=== PATIENT | female | born 1985 | race Caucasian/White ===

== ENCOUNTER 2020-04-25 15:39 | Outpatient (REF) | payer OTHER, SELFPAY | END 2020-04-25 15:40 | disposition home or self-care (01) | LOC: HO.LAB 15:39 | PROVIDERS: Visit Provider Internal Medicine | DX: Z13.89 Encounter for screening for other disorder (principal) ==

== ENCOUNTER 2020-04-29 14:31 | Outpatient (REF) | payer OTHER, SELFPAY ==
[2020-04-29 14:52] LABS: COVID-19 Test Negative (Negative)
== END 2020-04-29 14:32 | disposition home or self-care (01) ==
LOC: HO.LAB 14:31
PROVIDERS: PCP Internal Medicine; Visit Provider Internal Medicine
DX: Z20.828 Contact with and (suspected) exposure to other viral communicable diseases (principal)
CPT/HCPCS: 87635

== ENCOUNTER 2020-05-02 14:38 | Outpatient (REF) | payer OTHER, SELFPAY ==
[2020-05-02 15:07] LABS: COVID-19 Test Negative (Negative)
== END 2020-05-02 14:39 | disposition home or self-care (01) ==
LOC: HO.LAB 14:38
PROVIDERS: Visit Provider Internal Medicine
DX: Z20.828 Contact with and (suspected) exposure to other viral communicable diseases (principal)
CPT/HCPCS: 87635

== ENCOUNTER 2020-05-02 15:00 | Outpatient (RCR) | payer OTHER, SELFPAY ==
[2020-04-25 16:26] LABS: COVID-19 Test Negative (Negative)
== END 2020-07-23 13:47 | disposition other institution (70) ==
LOC: HO.PT 15:00
PROVIDERS: PCP Internal Medicine; Visit Provider Orthopaedic Surgery
DX: M24.661 Ankylosis, right knee (principal); M24.662 Ankylosis, left knee; Z98.890 Other specified postprocedural states
CPT/HCPCS: 87635; 97110; 97530

== ENCOUNTER 2020-05-06 17:03 | Outpatient (REF) | payer OTHER, SELFPAY ==
[2020-05-06 17:28] LABS: COVID-19 Test Negative (Negative)
== END 2020-05-06 17:04 | disposition home or self-care (01) ==
LOC: HO.LAB 17:03
PROVIDERS: Visit Provider Internal Medicine
DX: Z20.828 Contact with and (suspected) exposure to other viral communicable diseases (principal)
CPT/HCPCS: 87635

== ENCOUNTER 2020-05-13 13:05 | Outpatient (REF) | payer OTHER, SELFPAY ==
[2020-05-13 13:26] LABS: COVID-19 Test Negative (Negative)
== END 2020-05-13 13:06 | disposition home or self-care (01) ==
LOC: HO.LAB 13:05
PROVIDERS: Visit Provider Internal Medicine
DX: Z20.828 Contact with and (suspected) exposure to other viral communicable diseases (principal)
CPT/HCPCS: 87635

== ENCOUNTER 2020-05-24 10:30 | Outpatient (REF) | payer OTHER, SELFPAY ==
[2020-05-24 11:07] LABS: COVID-19 Test Negative (Negative)
== END 2020-05-24 10:31 | disposition home or self-care (01) ==
LOC: HO.EMPCOV 10:30
PROVIDERS: Visit Provider Internal Medicine
DX: Z20.828 Contact with and (suspected) exposure to other viral communicable diseases (principal)
CPT/HCPCS: 87635; C9803

== ENCOUNTER 2020-07-03 17:15 | Outpatient (REF) | payer OTHER, SELFPAY ==
[2020-07-03 17:55] LABS: COVID-19 Test Negative (Negative)
== END 2020-07-03 17:16 | disposition home or self-care (01) ==
LOC: HO.EMPCOV 17:15
PROVIDERS: Visit Provider Internal Medicine
DX: Z20.828 Contact with and (suspected) exposure to other viral communicable diseases (principal)
CPT/HCPCS: 87635; C9803

== ENCOUNTER 2020-08-05 12:01 | Emergency (ER) | payer OTHER, SELFPAY ==
--- NOTE | 2020-08-05 12:22 | ED.EXTPRO ---
HPI - Extremity Problem General Stated complaint: needle stick Time Seen by Provider: 08/05/20 12:10 Source: patient Mode of arrival: ambulatory History of Present Illness HPI Narrative: 34-year-old female with no significant past medical history presenting to the ED s/p accidental needlestick while trying to draw blood from patient. She reports stuck patient, and then accidentally punctured her left pinky finger. Patient reports her vaccination status is unknown, but was recently . MD Complaint: extremity pain Related Data Home Medications Medication Instructions Recorded Confirmed No Known Home Meds 07/29/20 07/29/20 Allergies Allergy/AdvReac Type Severity Reaction Status Date / Time acetaminophen [Percocet] Allergy Unknown vomitting, Verified 08/29/19 00:00 itch, GI upset oxycodone [Percocet] Allergy Unknown vomitting, Verified 08/29/19 00:00 itch, GI upset From PERCOCET AdvReac Unknown UPSET Uncoded 03/28/20 16:53 STOMACH AND SHAKING Review of Systems Review of Systems: Constitutional: No Weight loss, No Fever, No Chills Musculoskeletal: No joint pain, No Myalgias, No Joint Swelling Skin: No Skin Lesions, +puncture wound Yes all other systems are reviewed and are negative PMFSH Past Medical History Attestation statement: The following information was validated with the patient. Social History Social History Advance Directives: No Advance Directives Information Provided: Yes Physical Exam Const: General: cooperative, healthy appearing, comfortable, no acute distress, well developed, alert and awake Orientation/consciousness: patient oriented x3 Limitations: no limitations HENMT: Head: Yes normal to inspection Ears: hearing grossly normal bilaterally General nose exam: Normal external nose present Face and sinus: Yes normal facial exam Eyes: General: appearance normal, both eyes and all related structures EOM: EOMs intact bilaterally Neck: Neck: Yes normal visual inspection Resp: Effort & Inspection: normal respiratory effort Cardio: Rate: regular rate Skin: Other: Small puncture wound noted to left pinky finger. No cellulitis, streaking, fluctuance, induration or active bleeding Rashes: no rashes Neuro: General: patient oriented x3 Gait exam (Neuro): Normal gait present Extrem: General: Yes normal to inspection MDM - Extremity (Nontraumatic) MDM Narrative Medical decision making narrative: 34-year-old female with no significant past medical history presenting to the ED s/p accidental needlestick while trying to draw blood from patient. Plan: HIV/hepatitis antibodies, update tetanus. Patient would like to refrain from receiving PEP at this time until antibodies result from other patient Discharge Plan Discharge Clinical Impression: Needle stick injury Patient Disposition: Home, Self-Care Instructions: Needle Stick Injuries (ED) Prescriptions: No Action No Known Home Meds RF: 0 Referrals: Josep Silva MD [Primary Care Provider] - 2 days
[2020-08-05 13:03] LABS: HBc Num1 0.05 S/CO (0.00-0.79); HBsAGNum1 0.22 S/CO (0.00-0.99); HIV AB/AG Nonreactive (Nonreactive); HIV Num 1 0.08 S/CO (0.00-0.99); Hepatitis B Core Antibody Nonreactive (Nonreactive); Hepatitis B Surface Antigen Negative (Negative); ~Hepatitis C Antibody Nonreactive (Nonreactive)
== END 2020-08-05 15:00 | disposition home or self-care (01) ==
PROVIDERS: Physician Assistant; Emergency Provider Internal Medicine; PCP Internal Medicine
DX: Z77.21 Contact with and (suspected) exposure to potentially hazardous body fluids (principal); Z04.2 Encounter for examination and observation following work accident
CPT/HCPCS: 36415; 86704; 86803; 87340; 87389; 99283

== ENCOUNTER 2020-08-05 16:05 | Outpatient (REF) | payer OTHER, SELFPAY ==
[2020-08-05 16:28] LABS: Hematocrit 38.8 % (37-47); Mean Corpuscular HGB Conc 33.5 g/dl (31.0-35.0); Mean Corpuscular Hemoglobin 30.7 pg (27.0-33.0); Mean Corpuscular Volume 91.7 fL (80-98); Mean Platelet Volume 10.9 fL (9.4-12.3); Platelet Count 306 X10*3/uL (160-400); Red Blood Count 4.23 X10*6/uL (4.20-5.50); White Blood Count 5.3 X10*3/uL (4.8-10.8)
[2020-08-05 16:58] LABS: HCG Quantitative < 2 mIU/mL
[2020-08-05 17:13] LABS: TSH reflex Free T4 (Prenatal) 0.77 mIU/mL (0.32-4.0)
[2020-08-06 14:17] LABS: C. trachomatis RNA TMA NOT DETECTED (NOT DETECTED); N. gonorrhoeae RNA TMA NOT DETECTED (NOT DETECTED)
== END 2020-08-05 16:06 | disposition home or self-care (01) ==
LOC: HO.LAB 16:05
PROVIDERS: Visit Provider Obstetrics & Gynecology
DX: N92.1 Excessive and frequent menstruation with irregular cycle (principal)
CPT/HCPCS: 36415; 84702; 85027; 87491; 87591

== ENCOUNTER 2020-08-06 15:55 | Outpatient (REF) | payer OTHER, SELFPAY ==
--- NOTE | 2020-08-06 15:59 | US_ITS ---
EXAMINATION: PELVIC ULTRASOUND CLINICAL INFORMATION: Excessive and frequent menstruation COMPARISON: None TECHNIQUE: Transabdominal and transvaginal pelvic ultrasound was performed. Transvaginal exam was performed for better visualization of the uterus and ovaries. FINDINGS: The uterus is anteverted and measures 7.5 x 3.5 x 4.9 cm in dimension. There is a 1.1 x 0.9 x 1.7 cm hypoechoic lesion in the fundus of the uterus suggestive of a small fibroid. No other focal uterine lesion is seen. Endometrial thickness is normal estimated at 0.6 cm. The ovaries are normal-appearing. The right ovary measures 3.1 x 2 x 1.6 cm and the left ovary measures 3.2 x 1.4 x 1.7 cm. There is no fluid in the pelvis. US/US transvaginal IMPRESSION: Small fundal uterine fibroid otherwise unremarkable exam.
--- NOTE | 2020-08-06 15:59 | US_ITS ---
EXAMINATION: PELVIC ULTRASOUND CLINICAL INFORMATION: Excessive and frequent menstruation COMPARISON: None TECHNIQUE: Transabdominal and transvaginal pelvic ultrasound was performed. Transvaginal exam was performed for better visualization of the uterus and ovaries. FINDINGS: The uterus is anteverted and measures 7.5 x 3.5 x 4.9 cm in dimension. There is a 1.1 x 0.9 x 1.7 cm hypoechoic lesion in the fundus of the uterus suggestive of a small fibroid. No other focal uterine lesion is seen. Endometrial thickness is normal estimated at 0.6 cm. The ovaries are normal-appearing. The right ovary measures 3.1 x 2 x 1.6 cm and the left ovary measures 3.2 x 1.4 x 1.7 cm. There is no fluid in the pelvis. US/US pelvic complete IMPRESSION: Small fundal uterine fibroid otherwise unremarkable exam.
== END 2020-08-06 15:56 | disposition home or self-care (01) ==
LOC: HO.US 15:55
PROVIDERS: Visit Provider Obstetrics & Gynecology
DX: N92.1 Excessive and frequent menstruation with irregular cycle (principal)
CPT/HCPCS: 76830; 76856

== ENCOUNTER → 2020-08-09 | Outpatient (BNVA) | payer OTHER, SELFPAY | DX: Z20.822 Contact with and (suspected) exposure to COVID-19 (principal) | CPT/HCPCS: 99202 ==

== ENCOUNTER 2020-08-10 14:43 | Outpatient (REF) | payer OTHER, SELFPAY ==
[2020-08-10 15:32] LABS: COVID-19 Test Negative (Negative); IDNOW Serial# 9DD0AD1C
== END 2020-08-10 14:44 | disposition home or self-care (01) ==
LOC: HO.LAB 14:43
PROVIDERS: Visit Provider Internal Medicine
DX: Z20.822 Contact with and (suspected) exposure to COVID-19 (principal)
CPT/HCPCS: 36415; 87635

== ENCOUNTER → 2020-08-15 15:01 | Outpatient (BNVA) | payer OTHER, SELFPAY | PROVIDERS: Visit Provider Obstetrics & Gynecology ==

== ENCOUNTER 2020-10-02 15:00 | Outpatient (RCR) | payer OTHER, SELFPAY | END 2020-10-03 13:16 | disposition home or self-care (01) | LOC: HO.PT 15:00 | PROVIDERS: Visit Provider Orthopaedic Surgery | DX: Z47.89 Encounter for other orthopedic aftercare (principal) | CPT/HCPCS: 97110; 97112; 97140; 97161; 97530 ==

== ENCOUNTER 2020-10-09 14:37 | Emergency (ER) | payer OTHER, SELFPAY ==
--- NOTE | ~2020-10-09 | US_ITS ---
EXAMINATION: US OBSTETRICAL ULTRASOUND CLINICAL INFORMATION: Right-sided pain COMPARISON: Ultrasound pelvis 08/06/2020. Technique: Transabdominal pelvic ultrasound was performed. The patient refused endovaginal exam. FINDINGS: An anteverted uterus is present measuring 8.3 x 5.1 x 5.5 cm. A normal endometrium is seen measuring 0.8 cm. A gestational sac is not present. The right ovary measures 3.3 x 2.4 x 2.3 cm and contains a 1.5 x 1.1 x 0.9 cm cyst. Left ovary measures 3.8 x 2.2 x 3.0 cm and contains a 2.2 x 1.8 x 2.2 cm cyst. Trace fluid is present in the cul-de-sac. US/US OB <= 14 weeks fetus IMPRESSION: Normal pelvic ultrasound. Simple cysts are noted in the ovary. There is no evidence of a at this time.
[2020-10-09 14:50] VITALS: BP 131/81; PULSE 77; RESP 18; TEMP 36.9; O2SAT 99; BMI 24.7
[2020-10-09 15:05] LABS: Glucose Urine UA NEG (NEG); Leukocyte Esterase Urine NEG (NEG); Nitrite Urine NEG (NEG); Specific Gravity - Urine >= 1.030 (1.005-1.025); Urine Blood NEG (NEG); Urine Ketones NEG (NEG); Urine Protein NEG (NEG-TRACE)
[2020-10-09 15:08] LABS: UPreg QC Valid YES; Urine Pregnancy POSITIVE (NEGATIVE)
[2020-10-09 15:09] LABS: Appearance Urine CLEAR; Color Urine YELLOW
[2020-10-09 15:12] LABS: MANUAL DIFF FLAG NO
[2020-10-09 15:13] LABS: Basophils Percent Auto 0.7 % (0-2); Eosinophils Absolute Auto 0.2 X10*3/uL (0.0-0.4); Eosinophils Percent Auto 3.3 % (0-4); Hematocrit 41.5 % (37-47); Hemoglobin 13.1 g/dl (12.0-16.0); Lymphocytes Absolute Auto 2.1 X10*3/uL (1.2-4.9); Lymphocytes Percent Auto 45.4 % (20-40); Mean Corpuscular HGB Conc 31.6 g/dl (31.0-35.0); Mean Corpuscular Hemoglobin 29.9 pg (27.0-33.0); Mean Corpuscular Volume 94.7 fL (80-98); Mean Platelet Volume 10.5 fL (9.4-12.3); Monocytes Absolute Auto 0.4 X10*3/uL (0.1-1.2); Monocytes Percent Auto 7.6 % (2-11); Platelet Count 318 X10*3/uL (160-400); Red Blood Count 4.38 X10*6/uL (4.20-5.50); Red Cell Distribution Width 12.1 % (11.0-16.0); White Blood Count 4.6 X10*3/uL (4.8-10.8)
[2020-10-09 15:34] LABS: Alanine Aminotransferase 12 U/L (0-31); Albumin Level 4.4 g/dL (3.5-5.0); Alkaline Phosphatase 51 U/L (39-117); Anion Gap 13 (12-20); Aspartate Amino Transferase 16 U/L (5-31); Bilirubin Direct 0.2 mg/dL (0.0-0.5); Bilirubin Total 0.4 mg/dL (0.0-1.0); Blood Urea Nitrogen 17 mg/dL (9-16); Carbon Dioxide 28 mmol/L (22-29); Chloride 102 mmol/L (96-108); Estimated Glomerular Filt Rate > 60; Glucose Random 91 mg/dL (60-115); Potassium 4.1 mmol/L (3.3-5.1); Sodium 139 mmol/L (135-145); Total Protein 7.3 g/dL (6.5-8.0)
[2020-10-09 15:46] LABS: HCG Quantitative 362 mIU/mL
--- NOTE | 2020-10-09 15:53 | ED_ITS ---
HPI - General Chief complaint: OB Stated complaint: ABD PAIN Time Seen by Provider: 10/09/20 14:53 Source: patient Mode of arrival: ambulatory Limitations: no limitations History of Present Illness HPI Narrative: 35 y/o female with history of miscarriage in June presents to the ER with positive test at home and some right sided pelvic pain for the last few days. She reports the pain is 4/10 and worse with movement. She states after her miscarriage in June she had 2 menstrual cycl es in July and then a normal cycles in August and September. Her LMP was 09/28 - 10/03 and was normal in duration and flow. No excessive bleeding or cramping. She has been testing her ovulation and noted to have peak LH surge on 10/06 so had intercourse a few times in the next 2 days. She took a home test yesterday and it was positive, only 2-3 days after having intercourse. She some ongoing mild pain in the right lower pelvis but no further bleeding since 10/03. She called her OB who recommended she come into the ER for evaluation. No vaginal discharge, nausea or vomiting. MD Complaint: abdominal pain Onset (ago): day(s) Pain Consistency: constant Location: pelvis Severity: mild Severity scale (1-10): 3 Quality: Aching Relieving factors: rest Exacerbating factors: none Associated symptoms: abdominal pain Vaginal discharge: none Vaginal bleeding: none Date of Last Menstrual Period: 09/28/20 Patient : Yes care: followed by OB Related Data Home Medications Medication Instructions Recorded Confirmed [id number] 3-fat com #1 27 cap PO 08/05/20 08/15/20 mg-1 mg-300 mg capsule multivitamin 1 tab PO DAILY 08/05/20 08/15/20 Allergies Allergy/AdvReac Type Severity Reaction Status Date / Time acetaminophen [Percocet] Allergy Unknown vomitting, Verified 10/09/20 14:49 itch, GI upset oxycodone [Percocet] Allergy Unknown vomitting, Verified 10/09/20 14:49 itch, GI upset From PERCOCET AdvReac Unknown UPSET Uncoded 10/09/20 14:49 STOMACH AND SHAKING Review of Systems Review of Systems: Constitutional: No Fever, No Chills Cardiovascular: No Chest Pain, No SOB, No Orthopnea, No Edema Respiratory: No Cough, No Sputum, No Wheezing, No dyspnea Gastrointestinal: No Nausea, No Vomiting, No Diarrhea, + abdominal Pain Genitourinary: No Dysuria, No Urinary Frequency, No Hematuria, No vaginal bleeding Musculoskeletal: No joint pain, No Myalgias Skin: No Skin Lesions, No rash Neuro: No Weakness, No Numbness, No Dizziness, No Headache Psych: + Anxiety/Panic, No Depression Heme/Lymph: No Bruising, No Lymphadenopathy Endocrine: No Polyuria, No Polydipsia PMF Past Medical History Surgical History History of History of knee surgery Date of Last Menstrual Period: 09/28/20 Social History Social History Alcohol intake: never Smoking Status: Never smoker Advance Directives: No Advance Directives Information Provided: Yes Sexual orientation: Straight/Heterosexual Gender identity: female Physical Exam Vital Signs: Vital Signs: Last Vital Signs Temp 98.4 F 10/09/20 14:50 Pulse 77 10/09/20 14:50 Resp 18 10/09/20 14:50 BP 131/81 10/09/20 14:50 Pulse Ox 99 10/09/20 14:50 Body Mass Index 24.7 Appearance: Alert. Oriented X3. No acute distress. Eyes: Pupils equal, round and reactive to light. ENT: Pharynx normal. Neck: Normal inspection. Neck supple. CVS: Normal heart rate and rhythm. Pulses normal. Respiratory: No respiratory distress. Breath sounds normal. Abdomen: Soft and nontender. +BS x4. Pelvic exam deferred. Skin: Skin warm and dry. Normal skin color. Normal skin turgor. No rashes. Extremities: No lower extremity edema. Neuro: Oriented X 3. No motor deficit. No sensory deficit. Course Course Course Narrative: 35 y/o who is currently with LMP 09/28 presents with mild right sided pelvic discomfort. No vaginal bleeding or cramping. Pain worse with movement. Unclear if bleeding was menses vs other etiology. Will check quantitative HCG, transvaginal U/S to assess for possible ectopic . Reevaluation(s) Reevaluation #1: HCG 362 consistent with 3-4 weeks gestation. Ultrasound pending. Patient is comfortable. Pain is mild. Plan for repeat HCG tomorrow and follow up with Dr. Mullen. Given strict instructions to return if worsening pain. Stable for discharge. MDM - OB/Uterine Contractions Lab Data Result diagrams: 10/09/20 15:07 10/09/20 15:07 Labs: Lab Results 10/09/20 10/09/20 10/09/20 Range/Units 14:53 14:53 15:07 WBC 4.6 L (4.8-10.8) X10*3/uL RBC 4.38 (4.20-5.50) X10*6/uL Hgb 13.1 (12.0-16.0) g/dl Hct 41.5 (37-47) % MCV 94.7 (80-98) fL MCH 29.9 (27.0-33.0) pg MCHC 31.6 (31.0-35.0) g/dl RDW 12.1 (11.0-16.0) % Plt Count 318 (160-400) X10*3/uL MPV 10.5 (9.4-12.3) fL Immature Gran % (Auto) 0.0 (0.0-0.4) % Neut % (Auto) 43.0 L (45-73) % Lymph % (Auto) 45.4 H (20-40) % [place] % (Auto) 7.6 (2-11) % Eos % (Auto) 3.3 (0-4) % Baso % (Auto) 0.7 (0-2) % Lymph # (Auto) 2.1 (1.2-4.9) X10*3/uL [place] # (Auto) 0.4 (0.1-1.2) X10*3/uL Eos # (Auto) 0.2 (0.0-0.4) X10*3/uL Baso # (Auto) 0.0 (0.0-0.2) X10*3/uL Abs Immat Gran (auto) 0.00 (0.00-0.03) X10*3/uL Absolute Neuts (auto) 2.0 (2.0-8.3) X10*3/uL Absolute Nucleated RBC 0.000 (0.0-0.012) X10*3/uL Nucleated RBC % (auto) 0.0 (0.0-0.2) /100WBC Sodium (135-145) mmol/L Potassium (3.3-5.1) mmol/L Chloride (96-108) mmol/L Carbon Dioxide (22-29) mmol/L Anion Gap (12-20) BUN (9-16) mg/dL Creatinine (0.5-1.4) mg/dL Estim Creat Clear Calc Estimated GFR Random Glucose (60-115) mg/dL Calcium (8.4-10.2) mg/dL Total Bilirubin (0.0-1.0) mg/dL Direct Bilirubin (0.0-0.5) mg/dL AST (5-31) U/L ALT (0-31) U/L Alkaline Phosphatase (39-117) U/L Total Protein (6.5-8.0) g/dL Albumin (3.5-5.0) g/dL Beta HCG, Quant mIU/mL Urine Color YELLOW Urine Appearance CLEAR Urine pH 6.0 (5.0-8.0) Ur Specific [place] >= 1.030 H (1.005-1.025) Urine Protein NEG (NEG-TRACE) MG/DL Urine Glucose (UA) NEG (NEG) MG/DL Urine Ketones NEG (NEG) MG/DL Urine Blood NEG (NEG) Urine Nitrite NEG (NEG) Ur Leukocyte Esterase NEG (NEG) Urine Test POSITIVE H (NEGATIVE) Blood Type 10/09/20 10/09/20 Range/Units 15:07 15:07 WBC (4.8-10.8) X10*3/uL RBC (4.20-5.50) X10*6/uL Hgb (12.0-16.0) g/dl Hct (37-47) % MCV (80-98) fL MCH (27.0-33.0) pg MCHC (31.0-35.0) g/dl RDW (11.0-16.0) % Plt Count (160-400) X10*3/uL MPV (9.4-12.3) fL Immature Gran % (Auto) (0.0-0.4) % Neut % (Auto) (45-73) % Lymph % (Auto) (20-40) % [place] % (Auto) (2-11) % Eos % (Auto) (0-4) % Baso % (Auto) (0-2) % Lymph # (Auto) (1.2-4.9) X10*3/uL [place] # (Auto) (0.1-1.2) X10*3/uL Eos # (Auto) (0.0-0.4) X10*3/uL Baso # (Auto) (0.0-0.2) X10*3/uL Abs Immat Gran (auto) (0.00-0.03) X10*3/uL Absolute Neuts (auto) (2.0-8.3) X10*3/uL Absolute Nucleated RBC (0.0-0.012) X10*3/uL Nucleated RBC % (auto) (0.0-0.2) /100WBC Sodium 139 (135-145) mmol/L Potassium 4.1 (3.3-5.1) mmol/L Chloride 102 (96-108) mmol/L Carbon Dioxide 28 (22-29) mmol/L Anion Gap 13 (12-20) BUN 17 H (9-16) mg/dL Creatinine 0.75 (0.5-1.4) mg/dL Estim Creat Clear Calc 95.0 Estimated GFR > 60 Random Glucose 91 (60-115) mg/dL Calcium 9.0 (8.4-10.2) mg/dL Total Bilirubin 0.4 (0.0-1.0) mg/dL Direct Bilirubin 0.2 (0.0-0.5) mg/dL AST 16 (5-31) U/L ALT 12 (0-31) U/L Alkaline Phosphatase 51 (39-117) U/L Total Protein 7.3 (6.5-8.0) g/dL Albumin 4.4 (3.5-5.0) g/dL Beta HCG, Quant 362 mIU/mL Urine Color Urine Appearance Urine pH (5.0-8.0) Ur Specific [place] (1.005-1.025) Urine Protein (NEG-TRACE) MG/DL Urine Glucose (UA) (NEG) MG/DL Urine Ketones (NEG) MG/DL Urine Blood (NEG) Urine Nitrite (NEG) Ur Leukocyte Esterase (NEG) Urine Test (NEGATIVE) Blood Type O Positive Discharge Plan Discharge Clinical Impression: Positive blood test Patient Disposition: Home, Self-Care Instructions: (ED) Additional Instructions: Your hormone was 362. Your pelvic ultrasound was normal but it did not show any evidence of yet - likely because you are so early along. There is still a risk of ectopic given your pain. Recommend getting repeat HCG level tomorrow. Call Dr. Mullen's office tomorrow afternoon. If you develop ANY increase in pain or any vaginal bleeding come back to the ER right away for further evaluation. Prescriptions: No Action multivitamin Tablet 1 tab PO DAILY RF: 0 [id number] 3-fat com #1 27-1-300 mg capsule PO RF: 0 Referrals: Sergei Mullen MD [Physician] - 2 days
== END 2020-10-09 17:23 | disposition home or self-care (01) ==
PROVIDERS: Emergency Provider Emergency Medicine; PCP Internal Medicine
DX: R10.9 Unspecified abdominal pain (principal); Z79.899 Other long term (current) drug therapy
CPT/HCPCS: 36415; 76801; 80048; 80076; 81003; 81025; 84702; 85025; 86900; 86901; 99283

== ENCOUNTER 2020-10-10 06:43 | Outpatient (REF) | payer OTHER, SELFPAY ==
[2020-10-10 10:45] LABS: HCG Quantitative 454 mIU/mL
== END 2020-10-10 06:44 | disposition home or self-care (01) ==
LOC: HO.LAB 06:43
PROVIDERS: PCP Internal Medicine; Visit Provider Physician Assistant
DX: O26.899 Other specified pregnancy related conditions, unspecified trimester (principal); R10.9 Unspecified abdominal pain
CPT/HCPCS: 36415; 84702

== ENCOUNTER 2020-10-11 08:08 | Outpatient (REF) | payer OTHER, SELFPAY ==
[2020-10-11 08:56] LABS: HCG Quantitative 403 mIU/mL
[2020-10-12 05:28] LABS: CT PCR NOT DETECTED (Not Detect.); NG PCR NOT DETECTED (Not Detect.)
== END 2020-10-11 08:09 | disposition home or self-care (01) ==
LOC: HO.LAB 08:08
PROVIDERS: Absent Provider Obstetrics & Gynecology; PCP Internal Medicine; Visit Provider Physician Assistant
DX: O26.899 Other specified pregnancy related conditions, unspecified trimester (principal); R10.31 Right lower quadrant pain; O34.219 Maternal care for unspecified type scar from previous cesarean delivery; Z3A.00 Weeks of gestation of pregnancy not specified
CPT/HCPCS: 36415; 84702; 87491; 87591

== ENCOUNTER 2020-10-13 13:05 | Outpatient (REF) | payer OTHER, SELFPAY ==
[2020-10-13 13:44] LABS: HCG Quantitative 306 mIU/mL
== END 2020-10-13 13:06 | disposition home or self-care (01) ==
LOC: HO.LAB 13:05
PROVIDERS: Obstetrics & Gynecology; Visit Provider Nurse Practitioner Primary Care
DX: Z34.90 Encounter for supervision of normal pregnancy, unspecified, unspecified trimester (principal); Z3A.00 Weeks of gestation of pregnancy not specified
CPT/HCPCS: 36415; 84702

== ENCOUNTER 2020-10-14 13:17 | Outpatient (REF) | payer OTHER, SELFPAY ==
--- NOTE | ~2020-10-14 | US_ITS ---
EXAMINATION: US OBSTETRICAL ULTRASOUND CLINICAL INFORMATION: Abnormal quantitative beta hCG levels. Evaluate for ectopic versus early spontaneous . COMPARISON: None. LMP: 09/28/2020. Gestational age by maternal dates is 2 weeks 2 days. Estimated date of delivery by maternal dates is 07/05/2021. TECHNIQUE: Transabdominal and transvaginal pelvic ultrasound was performed. Transvaginal exam was performed for better visualization of the ovaries. FINDINGS: The uterus measures 8.4 x 4.9 x 5.8 cm in dimension. There is a small fundal fibroid that measures 1.2 x 0.9 x 1.3 cm. The endometrium does not appear thickened. Endometrial thickness measures 0.9 cm. No intrauterine is seen. The cervix is normal appearing. The right ovary is normal-appearing and measures 2.9 x 2.1 x 2.6 cm. The left ovary measures 3.6 x 2.8 x 3.1 cm. There is a 2.6 x 2.2 x 2.7 cm complex left ovarian cyst with internal echoes. There is a new hypoechoic slightly heterogeneous adnexal mass in between the left ovary in the uterus. This measures 1.8 x 1.5 x 1.9 cm. This demonstrates some peripheral flow. There is a new small amount of complex fluid in the pelvis. Findings are concerning for a left adnexal ectopic . US/US OB transvaginal IMPRESSION: No intrauterine seen. New slightly complex 1.8 x 1.5 x 1.9 cm left adnexal mass in between the uterus and left ovary and small amount of complex fluid in the pelvis. Ultrasound appearance is a concerning for a left adnexal ectopic . Findings were communicated to Shikha WHITFIELD on 10/14/2020 at 1:47 PM by the systems technologist at the completion of the exam.
--- NOTE | ~2020-10-14 | US_ITS ---
EXAMINATION: US OBSTETRICAL ULTRASOUND CLINICAL INFORMATION: Abnormal quantitative beta hCG levels. Evaluate for ectopic versus early spontaneous . COMPARISON: None. LMP: 09/28/2020. Gestational age by maternal dates is 2 weeks 2 days. Estimated date of delivery by maternal dates is 07/05/2021. TECHNIQUE: Transabdominal and transvaginal pelvic ultrasound was performed. Transvaginal exam was performed for better visualization of the ovaries. FINDINGS: The uterus measures 8.4 x 4.9 x 5.8 cm in dimension. There is a small fundal fibroid that measures 1.2 x 0.9 x 1.3 cm. The endometrium does not appear thickened. Endometrial thickness measures 0.9 cm. No intrauterine is seen. The cervix is normal appearing. The right ovary is normal-appearing and measures 2.9 x 2.1 x 2.6 cm. The left ovary measures 3.6 x 2.8 x 3.1 cm. There is a 2.6 x 2.2 x 2.7 cm complex left ovarian cyst with internal echoes. There is a new hypoechoic slightly heterogeneous adnexal mass in between the left ovary in the uterus. This measures 1.8 x 1.5 x 1.9 cm. This demonstrates some peripheral flow. There is a new small amount of complex fluid in the pelvis. Findings are concerning for a left adnexal ectopic . US/US OB <= 14 weeks fetus IMPRESSION: No intrauterine seen. New slightly complex 1.8 x 1.5 x 1.9 cm left adnexal mass in between the uterus and left ovary and small amount of complex fluid in the pelvis. Ultrasound appearance is a concerning for a left adnexal ectopic . Findings were communicated to Shikha WHITFIELD on 10/14/2020 at 1:47 PM by the angio technologist at the completion of the exam.
[2020-10-14 14:29] LABS: Hematocrit 40.1 % (37-47); Mean Corpuscular HGB Conc 32.4 g/dl (31.0-35.0); Mean Corpuscular Hemoglobin 30.4 pg (27.0-33.0); Mean Corpuscular Volume 93.9 fL (80-98); Mean Platelet Volume 10.4 fL (9.4-12.3); Platelet Count 300 X10*3/uL (160-400); Red Blood Count 4.27 X10*6/uL (4.20-5.50); Red Cell Distribution Width 12.2 % (11.0-16.0); White Blood Count 5.5 X10*3/uL (4.8-10.8)
[2020-10-14 14:51] LABS: Alanine Aminotransferase 11 U/L (0-31); Aspartate Amino Transferase 15 U/L (5-31); Estimated Glomerular Filt Rate > 60
[2020-10-14 14:57] LABS: HCG Quantitative 330 mIU/mL
== END 2020-10-14 13:18 | disposition home or self-care (01) ==
LOC: HO.US 13:17
PROVIDERS: PCP Internal Medicine; Visit Provider Obstetrics & Gynecology
DX: O00.90 Unspecified ectopic pregnancy without intrauterine pregnancy (principal); O34.219 Maternal care for unspecified type scar from previous cesarean delivery; Z3A.01 Less than 8 weeks gestation of pregnancy
CPT/HCPCS: 36415; 76801; 76817; 82565; 84450; 84460; 84702; 85027

== ENCOUNTER 2020-10-16 13:57 | Emergency (ER) | payer OTHER, SELFPAY ==
--- NOTE | ~2020-10-16 | US_ITS ---
EXAMINATION: US PELVIS ULTRASOUND CLINICAL INFORMATION: Status post methotrexate for left-sided ectopic . Beta-hCG 439. LMP 09/28/2020 COMPARISON: Pelvic ultrasound 10/14/2020, 10/09/2020 TECHNIQUE: Ultrasound of the pelvis is performed using both transabdominal and transvaginal transducers along with Doppler. Transvaginal imaging is performed due to inadequate visualization transabdominally. FINDINGS: Uterus: The uterus is anteverted and measures approximately 8.0 x 4.8 x 7.5 cm. The endometrial double wall thickness is 0.7 cm. There is no intrauterine gestational sac. No fluid in the uterine cavity. There is lobular contour anterior uterine body which may suggest small fibroid. Small myometrial cyst again noted anterior uterine body just right of midline measuring 0.6 cm. Adnexa: Both ovaries are visualized. There is normal color flow to the adnexa. There is no ovarian torsion. There is small amount of pelvic ascites similar to recent exam 10/14/2020. Right ovary measures 3.2 x 2.4 x 2.6 cm. Incidental follicle within the ovary measuring 1.9 x 1.8 x 1.9 cm. No right adnexal mass. Left ovary measures 4.2 x 2.6 x 2.9 cm cm. An avascular hemorrhagic cyst within the left ovary is again seen measuring 2.7 x 2.3 x 2.6 cm. Prior measurement 2.7 x 2.2 x 2.6 cm. The smaller left adnexal lesion previously described again with mild peripheral color flow is stable to decreased, measuring 1.6 x 1.0 x 1.6 cm. Prior measurements are 1.9 x 1.5 x 1.8 cm. On current images, this appears intraovarian, possibly a corpus luteum. There is no interval left adnexal mass. Preliminary results provided to Dr. Mullen by rfid systems engineer at 1525 hours. US/US OB limited IMPRESSION: 1. Uterus: Double wall endometrial thickness 0.7 cm. No intrauterine gestational sac. 2. Adnexa: Stable left intraovarian hemorrhagic cyst 2.7 cm. The smaller left adnexal lesion with mild peripheral color flow is borderline decreased. Mild pelvic ascites stable. No interval adnexal mass.
--- NOTE | ~2020-10-16 | US_ITS ---
EXAMINATION: US PELVIS ULTRASOUND CLINICAL INFORMATION: Status post methotrexate for left-sided ectopic . Beta-hCG 439. LMP 09/28/2020 COMPARISON: Pelvic ultrasound 10/14/2020, 10/09/2020 TECHNIQUE: Ultrasound of the pelvis is performed using both transabdominal and transvaginal transducers along with Doppler. Transvaginal imaging is performed due to inadequate visualization transabdominally. FINDINGS: Uterus: The uterus is anteverted and measures approximately 8.0 x 4.8 x 7.5 cm. The endometrial double wall thickness is 0.7 cm. There is no intrauterine gestational sac. No fluid in the uterine cavity. There is lobular contour anterior uterine body which may suggest small fibroid. Small myometrial cyst again noted anterior uterine body just right of midline measuring 0.6 cm. Adnexa: Both ovaries are visualized. There is normal color flow to the adnexa. There is no ovarian torsion. There is small amount of pelvic ascites similar to recent exam 10/14/2020. Right ovary measures 3.2 x 2.4 x 2.6 cm. Incidental follicle within the ovary measuring 1.9 x 1.8 x 1.9 cm. No right adnexal mass. Left ovary measures 4.2 x 2.6 x 2.9 cm cm. An avascular hemorrhagic cyst within the left ovary is again seen measuring 2.7 x 2.3 x 2.6 cm. Prior measurement 2.7 x 2.2 x 2.6 cm. The smaller left adnexal lesion previously described again with mild peripheral color flow is stable to decreased, measuring 1.6 x 1.0 x 1.6 cm. Prior measurements are 1.9 x 1.5 x 1.8 cm. On current images, this appears intraovarian, possibly a corpus luteum. There is no interval left adnexal mass. Preliminary results provided to Dr. Mullen by orchid transplanter at 1525 hours. US/US OB transvaginal IMPRESSION: 1. Uterus: Double wall endometrial thickness 0.7 cm. No intrauterine gestational sac. 2. Adnexa: Stable left intraovarian hemorrhagic cyst 2.7 cm. The smaller left adnexal lesion with mild peripheral color flow is borderline decreased. Mild pelvic ascites stable. No interval adnexal mass.
[2020-10-16 14:43] VITALS: PULSE 88; RESP 124; O2SAT 98; BMI 21.4
[2020-10-16 14:44] LABS: MANUAL DIFF FLAG NO
[2020-10-16 14:52] LABS: Basophils Percent Auto 0.2 % (0-2); Eosinophils Absolute Auto 0.1 X10*3/uL (0.0-0.4); Eosinophils Percent Auto 1.8 % (0-4); Hematocrit 37.4 % (37-47); Hemoglobin 12.3 g/dl (12.0-16.0); Imm Gran Abs Auto 0.01 X10*3/uL (0.00-0.03); Imm Gran Pct Auto 0.2 % (0.0-0.4); Lymphocytes Absolute Auto 1.4 X10*3/uL (1.2-4.9); Lymphocytes Percent Auto 28.3 % (20-40); Mean Corpuscular HGB Conc 32.9 g/dl (31.0-35.0); Mean Corpuscular Hemoglobin 30.4 pg (27.0-33.0); Mean Corpuscular Volume 92.6 fL (80-98); Mean Platelet Volume 10.5 fL (9.4-12.3); Monocytes Absolute Auto 0.4 X10*3/uL (0.1-1.2); Monocytes Percent Auto 7.9 % (2-11); Neutrophils Absolute Auto 3.1 X10*3/uL (2.0-8.3); Neutrophils Percent Auto 61.6 % (45-73); Platelet Count 267 X10*3/uL (160-400); Red Blood Count 4.04 X10*6/uL (4.20-5.50); White Blood Count 5.1 X10*3/uL (4.8-10.8)
[2020-10-16 14:54] LABS: INTERNATIONAL NORM RATIO 1.1 (0.9-1.1); Prothrombin Time 12.6 SEC (10.8-13.0)
[2020-10-16 14:56] LABS: Partial Thromboplastin Time 34.8 SEC (24.1-38.0)
--- NOTE | 2020-10-16 15:01 | ED.GENADULT ---
HPI - General Adult General Chief complaint: General Medical Stated complaint: ABD PAIN Time Seen by Provider: 10/16/20 14:14 Source: patient Mode of arrival: ambulatory Limitations: no limitations History of Present Illness HPI narrative: 35 y/o female with with recently diagnosed right sided ectopic s/p IM methotrexate on 10/[address] Mullen who presents to the ED with rectal pressure and discomfort. She is nauseated and has some RLQ discomfort but does not describe it as pain. She has some very mild vaginal spotting but overt bleeding. No fevers. She admits to constipation and does not recall her last BM. She denies abdominal pain or distention. MD complaint: rectal pressure Onset (ago): day(s) (2) Location: pelvis and buttocks Radiation: non-radiation Severity: moderate Quality: aching Pain Consistency: constant Relieving factors: none Exacerbating factors: none Associated symptoms: denies other symptoms Treatments prior to arrival: none Related Data Home Medications Medication Instructions Recorded Confirmed [id number] 3-fat com #1 27 cap PO 08/05/20 08/15/20 mg-1 mg-300 mg capsule multivitamin 1 tab PO DAILY 08/05/20 08/15/20 prenat.vits,edward,exb-mifo-bmbpo 1 tab PO DAILY 10/11/20 Allergies Allergy/AdvReac Type Severity Reaction Status Date / Time acetaminophen [Percocet] Allergy Unknown vomitting, Verified 10/14/20 14:35 itch, GI upset oxycodone [Percocet] Allergy Unknown vomitting, Verified 10/14/20 14:35 itch, GI upset From PERCOCET AdvReac Unknown UPSET Uncoded 10/09/20 14:49 STOMACH AND SHAKING Review of Systems Review of Systems: Constitutional: No Fever, No Chills Cardiovascular: No Chest Pain, No SOB, No Orthopnea, No Edema Respiratory: No Cough, No Sputum, No Wheezing, No dyspnea Gastrointestinal: No Nausea, No Vomiting, No Diarrhea, No abdominal Pain, No Hematochezia, No Melena, + constipation, +rectal pressure Genitourinary: No Dysuria, No Urinary Frequency, No Hematuria Musculoskeletal: No joint pain, No Myalgias Skin: No Skin Lesions, No rash Neuro: No Weakness, No Numbness, No Dizziness, No Headache Psych: + Anxiety/Panic, No Depression Heme/Lymph: No Bruising, No Lymphadenopathy PMFSH Past Medical History Attestation statement: The following information was validated with the patient. Surgical History History of History of knee surgery Social History Social History Alcohol intake: never Smoking Status: Never smoker Advance Directives: No Advance Directives Information Provided: No Sexual orientation: Straight/Heterosexual Gender identity: female Physical Exam Vital Signs: Vital Signs: Last Vital Signs Pulse 78 10/16/20 15:22 Resp 16 10/16/20 15:16 BP 126/72 10/16/20 15:22 Pulse Ox 98 10/16/20 15:22 Body Mass Index 21.4 Appearance: Alert. Oriented X3. No acute distress. Eyes: Pupils equal, round and reactive to light. ENT: Pharynx normal. Neck: Normal inspection. Neck supple. CVS: Normal heart rate and rhythm. Pulses normal. Respiratory: No respiratory distress. Breath sounds normal. Abdomen: Soft with moderate RLQ tenderness, +rebound, no guarding. decreased BS x4 EUGENE: hard stool palpable in distal rectal vault, unable to manaully disimpact, normal rectal tone, no blood. Skin: Skin warm and dry. Normal skin color. Normal skin turgor. No rashes. Extremities: No lower extremity edema. Neuro: Oriented X 3. No motor deficit. No sensory deficit. Steady gait Course Course Course Narrative: 35 y/o female with known ectopic s/p MTX presenting with rectal pressure, lower abdominal tenderness. Concern for possible rupture with viseral pain. She is hemodyamically stable on arrival, admits to anxiety but otherwise appears well, non-toxic. Will get STAT labs, T&S and repeat pelvic U/S to further assess. Reevaluation(s) Reevaluation #1: H/H slightly down to 12.3/37.4 from 40.1 done two days ago. Patient at U/S now. Reevaluation #2: US is essentially unchanged from 2 days prior, stable mild amount of free fluid in the cul-de-sac. Imaging was personally reviewed by Dr. Mullen who also came to evaluate the patient at the bedside. Patient is stable for discharge home with plans for repeat blood work tomorrow and then again on Wednesday to observe the trend. She has an appointment with Dr. Mullen on Wednesday. We discussed results and warning signs to return to the ER. Stable for d/c at this time. 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 Mullen Medical Decision Making Lab Data Result diagrams: 10/16/20 14:33 10/16/20 14:33 Labs: Lab Results 10/16/20 10/16/20 10/16/20 Range/Units 14:33 14:33 14:33 WBC 5.1 (4.8-10.8) X10*3/uL RBC 4.04 L (4.20-5.50) X10*6/uL Hgb 12.3 (12.0-16.0) g/dl Hct 37.4 (37-47) % MCV 92.6 (80-98) fL MCH 30.4 (27.0-33.0) pg MCHC 32.9 (31.0-35.0) g/dl RDW 12.0 (11.0-16.0) % Plt Count 267 (160-400) X10*3/uL MPV 10.5 (9.4-12.3) fL Immature Gran % (Auto) 0.2 (0.0-0.4) % Neut % (Auto) 61.6 (45-73) % Lymph % (Auto) 28.3 (20-40) % [place] % (Auto) 7.9 (2-11) % Eos % (Auto) 1.8 (0-4) % Baso % (Auto) 0.2 (0-2) % Lymph # (Auto) 1.4 (1.2-4.9) X10*3/uL [place] # (Auto) 0.4 (0.1-1.2) X10*3/uL Eos # (Auto) 0.1 (0.0-0.4) X10*3/uL Baso # (Auto) 0.0 (0.0-0.2) X10*3/uL Abs Immat Gran (auto) 0.01 (0.00-0.03) X10*3/uL Absolute Neuts (auto) 3.1 (2.0-8.3) X10*3/uL Absolute Nucleated RBC 0.000 (0.0-0.012) X10*3/uL Nucleated RBC % (auto) 0.0 (0.0-0.2) /100WBC PT 12.6 (10.8-13.0) SEC INR 1.1 (0.9-1.1) APTT 34.8 (24.1-38.0) SEC Sodium 139 (135-145) mmol/L Potassium 3.7 (3.3-5.1) mmol/L Chloride 106 (96-108) mmol/L Carbon Dioxide 25 (22-29) mmol/L Anion Gap 12 (12-20) BUN 13 (9-16) mg/dL Creatinine 0.70 (0.5-1.4) mg/dL Estim Creat Clear Calc 97.8 Estimated GFR > 60 Random Glucose 104 (60-115) mg/dL Calcium 8.8 (8.4-10.2) mg/dL Magnesium 2.0 (1.6-2.6) mg/dL Beta HCG, Quant mIU/mL Urine Color Urine Appearance Urine pH (5.0-8.0) Ur Specific [place] (1.005-1.025) Urine Protein (NEG-TRACE) MG/DL Urine Glucose (UA) (NEG) MG/DL Urine Ketones (NEG) MG/DL Urine Blood (NEG) Urine Nitrite (NEG) Ur Leukocyte Esterase (NEG) COVID-19 (CARLITOS) (Negative) COVID-19 Clin Com Blood Type Antibody Screen 10/16/20 10/16/20 10/16/20 Range/Units 14:33 14:33 14:33 WBC (4.8-10.8) X10*3/uL RBC (4.20-5.50) X10*6/uL Hgb (12.0-16.0) g/dl Hct (37-47) % MCV (80-98) fL MCH (27.0-33.0) pg MCHC (31.0-35.0) g/dl RDW (11.0-16.0) % Plt Count (160-400) X10*3/uL MPV (9.4-12.3) fL Immature Gran % (Auto) (0.0-0.4) % Neut % (Auto) (45-73) % Lymph % (Auto) (20-40) % [place] % (Auto) (2-11) % Eos % (Auto) (0-4) % Baso % (Auto) (0-2) % Lymph # (Auto) (1.2-4.9) X10*3/uL [place] # (Auto) (0.1-1.2) X10*3/uL Eos # (Auto) (0.0-0.4) X10*3/uL Baso # (Auto) (0.0-0.2) X10*3/uL Abs Immat Gran (auto) (0.00-0.03) X10*3/uL Absolute Neuts (auto) (2.0-8.3) X10*3/uL Absolute Nucleated RBC (0.0-0.012) X10*3/uL Nucleated RBC % (auto) (0.0-0.2) /100WBC PT (10.8-13.0) SEC INR (0.9-1.1) APTT (24.1-38.0) SEC Sodium (135-145) mmol/L Potassium (3.3-5.1) mmol/L Chloride (96-108) mmol/L Carbon Dioxide (22-29) mmol/L Anion Gap (12-20) BUN (9-16) mg/dL Creatinine (0.5-1.4) mg/dL Estim Creat Clear Calc Estimated GFR Random Glucose (60-115) mg/dL Calcium (8.4-10.2) mg/dL Magnesium (1.6-2.6) mg/dL Beta HCG, Quant 439 mIU/mL Urine Color Urine Appearance Urine pH (5.0-8.0) Ur Specific [place] (1.005-1.025) Urine Protein (NEG-TRACE) MG/DL Urine Glucose (UA) (NEG) MG/DL Urine Ketones (NEG) MG/DL Urine Blood (NEG) Urine Nitrite (NEG) Ur Leukocyte Esterase (NEG) COVID-19 (CARLITOS) Negative (Negative) COVID-19 Clin Com See Note Blood Type O Positive Antibody Screen NEGATIVE 10/16/20 Range/Units 15:18 WBC (4.8-10.8) X10*3/uL RBC (4.20-5.50) X10*6/uL Hgb (12.0-16.0) g/dl Hct (37-47) % MCV (80-98) fL MCH (27.0-33.0) pg MCHC (31.0-35.0) g/dl RDW (11.0-16.0) % Plt Count (160-400) X10*3/uL MPV (9.4-12.3) fL Immature Gran % (Auto) (0.0-0.4) % Neut % (Auto) (45-73) % Lymph % (Auto) (20-40) % [place] % (Auto) (2-11) % Eos % (Auto) (0-4) % Baso % (Auto) (0-2) % Lymph # (Auto) (1.2-4.9) X10*3/uL [place] # (Auto) (0.1-1.2) X10*3/uL Eos # (Auto) (0.0-0.4) X10*3/uL Baso # (Auto) (0.0-0.2) X10*3/uL Abs Immat Gran (auto) (0.00-0.03) X10*3/uL Absolute Neuts (auto) (2.0-8.3) X10*3/uL Absolute Nucleated RBC (0.0-0.012) X10*3/uL Nucleated RBC % (auto) (0.0-0.2) /100WBC PT (10.8-13.0) SEC INR (0.9-1.1) APTT (24.1-38.0) SEC Sodium (135-145) mmol/L Potassium (3.3-5.1) mmol/L Chloride (96-108) mmol/L Carbon Dioxide (22-29) mmol/L Anion Gap (12-20) BUN (9-16) mg/dL Creatinine (0.5-1.4) mg/dL Estim Creat Clear Calc Estimated GFR Random Glucose (60-115) mg/dL Calcium (8.4-10.2) mg/dL Magnesium (1.6-2.6) mg/dL Beta HCG, Quant mIU/mL Urine Color YELLOW Urine Appearance CLEAR Urine pH 6.5 (5.0-8.0) Ur Specific [place] 1.025 (1.005-1.025) Urine Protein NEG (NEG-TRACE) MG/DL Urine Glucose (UA) NEG (NEG) MG/DL Urine Ketones NEG (NEG) MG/DL Urine Blood NEG (NEG) Urine Nitrite NEG (NEG) Ur Leukocyte Esterase NEG (NEG) COVID-19 (CARLITOS) (Negative) COVID-19 Clin Com Blood Type Antibody Screen Discharge Plan Discharge Clinical Impression: Ectopic Qualifiers: Location of ectopic : tubal Intrauterine status: without intrauterine Laterality: left Qualified Code(s): O00.102 - Left tubal without intrauterine Patient Disposition: Home, Self-Care Instructions: Ectopic (DC), Constipation (ED) Additional Instructions: Your ultrasound today was essentially unchanged from Wednesday. Follow with your planned blood work tomorrow and Wednesday. Follow up with Dr. Mullen Wednesday. Increase your oral hydration and start Miralax and Colace for constipation. If you develop severe lower abdominal pain, vomiting, or any other concerning symptoms come back to the ER for further evaluation. Prescriptions: No Action multivitamin Tablet 1 tab PO DAILY RF: 0 WAI-ysuu-QD-omega 3-fat com #1 27-1-300 mg capsule PO RF: 0 prenat.vits,edward,snr-bmmj-fygul Tablet 1 tab PO DAILY RF: 0 Referrals: Sergei Mullen MD [Physician] - 5 days
[2020-10-16 15:10] LABS: Anion Gap 12 (12-20); Carbon Dioxide 25 mmol/L (22-29); Chloride 106 mmol/L (96-108); Creatinine Clr Calc Pharmacy 97.8; Estimated Glomerular Filt Rate > 60; Glucose Random 104 mg/dL (60-115); Potassium 3.7 mmol/L (3.3-5.1); Sodium 139 mmol/L (135-145)
[2020-10-16 15:11] LABS: COVID-19 Test Negative (Negative)
[2020-10-16 15:16] VITALS: BP 114/76; PULSE 69; RESP 16; O2SAT 99
[2020-10-16 15:16] LABS: HCG Quantitative 439 mIU/mL
[2020-10-16 15:22] VITALS: BP 126/72; PULSE 78; O2SAT 98
[2020-10-16 15:29] LABS: Glucose Urine UA NEG (NEG); Leukocyte Esterase Urine NEG (NEG); Nitrite Urine NEG (NEG); PH 6.5 (5.0-8.0); Specific Gravity - Urine 1.025 (1.005-1.025); Urine Blood NEG (NEG); Urine Ketones NEG (NEG); Urine Protein NEG (NEG-TRACE)
[2020-10-16 15:31] LABS: Color Urine YELLOW
[2020-10-16 15:32] LABS: Appearance Urine CLEAR
[2020-10-16 16:49] LABS: Blood Urea Nitrogen 13 mg/dL (9-16); Calcium 8.8 mg/dL (8.4-10.2)
--- NOTE | 2020-10-16 17:02 | P.CONOB_ITS ---
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 The patient hCG was 330 and ultrasound showed a left 1.8 x 1.9 cm left ectopic with left complex ovarian cyst and mild complex fluid in the pelvis no evidence of intrauterine . The patient was counseled about methotrexate treatment was given 88 mg of methotrexate. The patient today called with some rectal pressure on and off and mild right sided discomfort, no pain. The patient admits to not having a BM for last few days. H&H came back as 12.3/37.4, chemistry within normal hCG 439 , day 3 of methotrexate treatment. Rh positive. Ultrasound showed the following: Uterus: Double wall endometrial thickness 0.7 cm. No intrauterine gestational sac. Adnexa: Stable left intraovarian hemorrhagic cyst 2.7 cm. The smaller left adnexal lesion with mild peripheral color flow is borderline decreased. Mild pelvic ascites stable. No interval adnexalmass. cc:: CC: UPPER MARKER - Review of Systems Review of Systems ROS Unobtainable: All systems reviewed & are unremarkable except as noted in HPI and below Cardiovascular: Denies Palpatations, Loss of consciousness and Chest pain Respiratory: Denies Cough, Wheezing and Shortness of breath Musculoskeletal: Denies Low back pain Gastrointestinal: Denies Heartburn, Constipation, Diarrhea, Nausea and Vomiting Genitourinary: Denies Pain with urination, Burning with urination and Urinary frequency Neurological: Denies Migranes Psychological: Denies Depression [facility] Surgical History Surgical History History of History of knee surgery Social History Social History Alcohol intake: never Smoking Status: Never smoker Advance Directives: No Advance Directives Information Provided: No Sexual orientation: Straight/Heterosexual Gender identity: female Meds Allergies Allergy/AdvReac Type Severity Reaction Status Date / Time acetaminophen [Percocet] Allergy Unknown vomitting, Verified 10/14/20 14:35 itch, GI upset oxycodone [Percocet] Allergy Unknown vomitting, Verified 10/14/20 14:35 itch, GI upset From PERCOCET AdvReac Unknown UPSET Uncoded 10/09/20 14:49 STOMACH AND SHAKING Home Medications Medication Instructions Recorded Confirmed Last Taken Type THD-mtum-KR-omega 3-fat com #1 27 cap PO 08/05/20 08/15/20 Unknown History mg-1 mg-300 mg capsule multivitamin 1 tab PO DAILY 08/05/20 08/15/20 Unknown History prenat.vits,edward,pez-tlma-dphke 1 tab PO DAILY 10/11/20 Unknown History SLICE CUTTING MACHINE OPERATOR Physical Exam Vitals Vital signs: Pulse Resp BP Pulse Ox 78 16 126/72 98 10/16/20 15:22 10/16/20 15:16 10/16/20 15:22 10/16/20 15:22 Body Mass Index 21.4 Constitutional General Appearance: Healthy appearing, Well-nourished and Well-developed Psychiatric Mood and Affect: active and alert, normal mood and normal affect Skin Appearance: No rashes and No lesions Lungs Respiratory Effort: No intercostal retractions Auscultation: Clear to auscultation Cardiovascular Auscultation: RRR Abdomen Auscultation/Inspection/Palpation: Normal bowel sounds, Soft, Non-distended and No tenderness Female Genitalia (Pelvic) Exam: Deferred SLICE CUTTING MACHINE OPERATOR - Results Labs CBC & Chem 7: 10/16/20 14:33 10/16/20 14:33 Labs: Short CBC 10/16/20 Range/Units 14:33 WBC 5.1 (4.8-10.8) X10*3/uL Hgb 12.3 (12.0-16.0) g/dl Hct 37.4 (37-47) % Plt Count 267 (160-400) X10*3/uL BMP 10/16/20 14:33 Sodium 139 Potassium 3.7 Chloride 106 Carbon Dioxide 25 BUN 13 Creatinine 0.70 Calcium 8.8 Urine 10/16/20 Range/Units 15:18 Urine Color YELLOW Urine Appearance CLEAR Urine pH 6.5 (5.0-8.0) Ur Specific [place] 1.025 (1.005-1.025) Urine Protein NEG (NEG-TRACE) MG/DL Urine Glucose (UA) NEG (NEG) MG/DL Antibody Screen Antibody Screen NEGATIVE 10/16/20 14:33 Assessment and Plan (1) Ectopic : Status: Acute Discussed with the patient the findings on physical exam being benign with no evidence of peritonitis, ultrasound findings with no change compared to the ultrasound done 2 days ago, normal CBC, chemistry, Days 3 hCG expected to rise from day 1. The clinical scenario today shows no evidence of ruptured ectopic . Signs and symptoms of rupture were given to the patient she is to call if pain occurs, nausea and vomiting. Otherwise repeat hCG day for tomorrow and day 7 and follow-up in the office on Wednesday. All questions answered, the patient verbalized understanding.
== END 2020-10-16 17:48 | disposition home or self-care (01) ==
PROVIDERS: Physician Assistant; Emergency Provider Emergency Medicine Emergency Medical Services; PCP Internal Medicine
DX: O00.102 Left tubal pregnancy without intrauterine pregnancy (principal); Z20.822 Contact with and (suspected) exposure to COVID-19; Z79.899 Other long term (current) drug therapy
CPT/HCPCS: 36415; 76815; 76817; 80048; 81003; 83735; 84702; 85025; 85610; 85730; 86850; 86900; 87635; 99283

== ENCOUNTER 2020-10-17 10:36 | Outpatient (REF) | payer OTHER, SELFPAY ==
[2020-10-17 11:40] LABS: HCG Quantitative 372 mIU/mL
== END 2020-10-17 10:37 | disposition home or self-care (01) ==
LOC: HO.LAB 10:36
PROVIDERS: PCP Internal Medicine; Visit Provider Obstetrics & Gynecology
DX: O00.90 Unspecified ectopic pregnancy without intrauterine pregnancy (principal)
CPT/HCPCS: 36415; 84702

== ENCOUNTER 2020-10-19 08:24 | Outpatient (REF) | payer OTHER, SELFPAY ==
[2020-10-19 09:19] LABS: HCG Quantitative 384 mIU/mL
== END 2020-10-19 08:25 | disposition home or self-care (01) ==
LOC: HO.LAB 08:24
PROVIDERS: Obstetrics & Gynecology; PCP Internal Medicine; Visit Provider Physician Assistant Medical
DX: O00.90 Unspecified ectopic pregnancy without intrauterine pregnancy (principal)
CPT/HCPCS: 36415; 84702

== ENCOUNTER 2020-10-20 09:17 | Outpatient (REF) | payer OTHER, SELFPAY ==
[2020-10-20 10:10] LABS: HCG Quantitative 391 mIU/mL
[2020-10-20 11:35] LABS: MANUAL DIFF FLAG NO
[2020-10-20 11:39] LABS: Basophils Percent Auto 0.4 % (0-2); Eosinophils Absolute Auto 0.1 X10*3/uL (0.0-0.4); Eosinophils Percent Auto 2.1 % (0-4); Hematocrit 36.6 % (37-47); Hemoglobin 12.1 g/dl (12.0-16.0); Imm Gran Abs Auto 0.01 X10*3/uL (0.00-0.03); Imm Gran Pct Auto 0.2 % (0.0-0.4); Lymphocytes Absolute Auto 2.1 X10*3/uL (1.2-4.9); Lymphocytes Percent Auto 36.9 % (20-40); Mean Corpuscular HGB Conc 33.1 g/dl (31.0-35.0); Mean Corpuscular Hemoglobin 30.6 pg (27.0-33.0); Mean Corpuscular Volume 92.4 fL (80-98); Mean Platelet Volume 10.5 fL (9.4-12.3); Monocytes Absolute Auto 0.4 X10*3/uL (0.1-1.2); Monocytes Percent Auto 6.6 % (2-11); Neutrophils Percent Auto 53.8 % (45-73); Platelet Count 266 X10*3/uL (160-400); Red Blood Count 3.96 X10*6/uL (4.20-5.50); White Blood Count 5.6 X10*3/uL (4.8-10.8)
[2020-10-20 11:49] LABS: Alanine Aminotransferase 12 U/L (0-31); Anion Gap 16 (12-20); Aspartate Amino Transferase 15 U/L (5-31); Blood Urea Nitrogen 16 mg/dL (9-16); Calcium 8.9 mg/dL (8.4-10.2); Carbon Dioxide 22 mmol/L (22-29); Chloride 104 mmol/L (96-108); Estimated Glomerular Filt Rate > 60; Glucose Random 82 mg/dL (60-115); Potassium 4.1 mmol/L (3.3-5.1); Sodium 138 mmol/L (135-145)
--- NOTE | 2020-10-20 15:59 | PM.GYNCN ---
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 She received methotrexate 88 mg IM on 10/14 hCG day4 was 372 went on day 7 today to 391. The patient is doing well with no complaints. 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 Review of Systems ROS Unobtainable: All systems reviewed & are unremarkable except as noted in HPI and below Cardiovascular: Denies Palpatations, Loss of consciousness and Chest pain Respiratory: Denies Cough, Wheezing and Shortness of breath Musculoskeletal: Denies Low back pain Gastrointestinal: Denies Heartburn, Constipation, Diarrhea, Nausea and Vomiting Genitourinary: Denies Pain with urination, Burning with urination and Urinary frequency Neurological: Denies Migranes Psychological: Denies Depression [facility] Surgical History Surgical History History of History of knee surgery Social History Social History Alcohol intake: never Smoking Status: Never smoker Advance Directives: No Sexual orientation: Straight/Heterosexual Gender identity: female Meds Allergies Allergy/AdvReac Type Severity Reaction Status Date / Time acetaminophen [Percocet] Allergy Unknown vomitting, Verified 10/14/20 14:35 itch, GI upset oxycodone [Percocet] Allergy Unknown vomitting, Verified 10/14/20 14:35 itch, GI upset From PERCOCET AdvReac Unknown UPSET Uncoded 10/09/20 14:49 STOMACH AND SHAKING Home Medications Medication Instructions Recorded Confirmed Last Taken Type JDI-ialx-YM-omega 3-fat com #1 27 cap PO 08/05/20 08/15/20 Unknown History mg-1 mg-300 mg capsule multivitamin 1 tab PO DAILY 08/05/20 08/15/20 Unknown History prenat.vits,edward,vqc-adsg-pgdqt 1 tab PO DAILY 10/11/20 Unknown History 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 Physical Exam Constitutional General Appearance: Healthy appearing, Well-nourished and Well-developed Psychiatric Mood and Affect: active and alert, normal mood and normal affect Skin Appearance: No rashes and No lesions Lungs Respiratory Effort: No intercostal retractions Auscultation: Clear to auscultation Cardiovascular Auscultation: RRR Abdomen Auscultation/Inspection/Palpation: Normal bowel sounds, Soft, Non-distended and No tenderness Female Genitalia (Pelvic) Exam: Deferred 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 - Results Labs CBC & Chem 7: 10/20/20 11:20 10/20/20 09:35 Labs: Short CBC 10/20/20 Range/Units 11:20 WBC 5.6 (4.8-10.8) X10*3/uL Hgb 12.1 (12.0-16.0) g/dl Hct 36.6 L (37-47) % Plt Count 266 (160-400) X10*3/uL BMP 10/20/20 09:35 Sodium 138 Potassium 4.1 Chloride 104 Carbon Dioxide 22 BUN 16 Creatinine 0.76 Calcium 8.9 Liver Function 10/20/20 Range/Units 09:35 AST 15 (5-31) U/L ALT 12 (0-31) U/L Assessment and Plan (1) Ectopic : Qualifiers: Intrauterine status: without intrauterine Laterality: left Location of ectopic : tubal Qualified Code(s): O00.102 - Left tubal without intrauterine Status: Acute Discussed with the patient the findings on initial ultrasound 1.9 cm adnexal mass suspicious for ectopic with no evidence of intrauterine and repeat ultrasound 3 days after showing 1.6 cm complex cyst possible corpus luteum cyst. also discussed the patient the rise in HCG from day 4 to day 7 at 372-391 instead of a decreased by at least 15% ; possible causes include failure of the methotrexate to treat ectopic versus nonviable intrauterine or a viable intrauterine . Discussed with the patient treatment options including the following observation repeat hCG every 48 hours with warning signs of SAB versus ectopic, option 2. Suction D and C to rule out intrauterine followed by hCG levels and determined SAB versus ectopic, option 3 is 2nd dose of methotrexate ; All the pros and cons risks and benefits of each approach were discussed with the patient including but not limited to, failure rate of MTX ~15%, possible exposure of methotrexate teratogenicity to an early intrauterine not diagnosed by ultrasound with the risk of SAB and severe deformities, possibility of a early intrauterine (since HCG level is very low). Patient desires methotrexate treatment. CBC, LFTs and creatinine a more normal. Discussed with the patient the common side effects of the medication, including skin rash, sensitivity to the sun, indigestion, nausea, sore mouth were discussed with the patient. Less common side effects (occurring in less than 2% of patients) were also discussed a drop in blood cell counts or temporary elevation in liver enzymes. All questions were answered and recommended follow up reviewed. Plan methotrexate 50 mg/m2 BSA x 1.76 m2 BSA = 88 mg methotrexate IM x 1. Patient information sheet was given to the patient and instructed patient not to have intercourse or perform strenuous exercises or activities avoid sun exposure , next step patient will be given methotrexate 88 mg IM. The patient was given to the instructions to follow up with hCG day 4 and 7 and follow up with an appointment day 4. s/s of ruptured ectopic d/w she is to call or go to the ER if abd pain occurs. otherwise hcg day 4 and repeat HCG day 7 with fu appt . Discussed with the patient that Methotrexate is cleared from the serum before the 4 to12 weeks necessary for the resolution of the ectopic gestation and ovulation in the next cycle . However, there are reports of methotrexate detectable in liver cells 116 days past exposure . Limited evidence suggests that the frequency of congenital anomalies or early loss is not elevated in women who have become shortly after methotrexate exposure . However, perhaps based on the timing of methotrexate clearance from the body, some experts continue to recommend that women delay for at least 3 months after the last dose of methotrexate .All questions were answered pt verbalized understanding. [id number] visit 30 minutes more than 50% of time was spent counseling and/or coordinating care. I spent 15 minutes [id number] with the patient, and a total of 25 minutes reviewing the chart talking to the patient and documenting in the medical record.
== END 2020-10-20 09:18 | disposition home or self-care (01) ==
LOC: HO.LAB 09:17
PROVIDERS: Obstetrics & Gynecology; Visit Provider Physician Assistant
DX: O00.102 Left tubal pregnancy without intrauterine pregnancy (principal)
CPT/HCPCS: 36415; 80048; 84450; 84460; 84702; 85025; 99283

== ENCOUNTER 2020-10-20 13:23 | Emergency (ER) | payer OTHER, SELFPAY ==
--- NOTE | 2020-10-20 14:24 | ED.RECABL ---
HPI - Recheck/Abnormal Lab/Rx General Stated Complaint: ectopic Time Seen by Provider: 10/20/20 13:54 Source: patient Mode of arrival: ambulatory Limitations: no limitations History of Present Illness HPI narrative: 35 y/o female with known ectopic presents to the ER with uptitrating HCG level 7 days after IM MTX. She denies severe abdominal pain, N/V/D. Recently seen here for rectal pain/pressure after MTX with stable U/S and no evidence of rupture. She was constipated, did an enema at home with good relief. Outpatient blood work showed HCG went from 372 --> [address]. Dr. Mullen planning to repeat MTX today. complaint: abnormal lab Initial visit (ago): hour(s) Returns today for: called because of abnormal lab/test Symptoms since prior visit: no new symptoms Associated symptoms: none Related Data Home Medications Medication Instructions Recorded Confirmed JLK-zscf-OJ-omega 3-fat com #1 27 cap PO 08/05/20 08/15/20 mg-1 mg-300 mg capsule multivitamin 1 tab PO DAILY 08/05/20 08/15/20 prenat.vits,edward,wpu-cgwf-bhyqz 1 tab PO DAILY 10/11/20 Allergies Allergy/AdvReac Type Severity Reaction Status Date / Time acetaminophen [Percocet] Allergy Unknown vomitting, Verified 10/14/20 14:35 itch, GI upset oxycodone [Percocet] Allergy Unknown vomitting, Verified 10/14/20 14:35 itch, GI upset From PERCOCET AdvReac Unknown UPSET Uncoded 10/09/20 14:49 STOMACH AND SHAKING Review of Systems Review of Systems: Yes all other systems are reviewed and are negative PMFSH Past Medical History Attestation statement: The following information was validated with the patient. Surgical History History of History of knee surgery Social History Social History Alcohol intake: never Smoking Status: Never smoker Advance Directives: No Sexual orientation: Straight/Heterosexual Gender identity: female Physical Exam Const: General: cooperative, healthy appearing, comfortable and no acute distress Orientation/consciousness: patient oriented x3 HENMT: Head: Yes normal to inspection Ears: hearing grossly normal bilaterally General nose exam: Normal external nose present Face and sinus: Yes normal facial exam Eyes: General: appearance normal, both eyes and all related structures Neck: Neck: Yes normal visual inspection Chest: Chest palpation & inspection: normal inspection of the chest Resp: Effort & Inspection: normal respiratory effort and able to speak in complete sentences GI: Inspection: Yes normal to inspection and No distended Palpation (GI): Soft to palpation, nontender and no guarding Neuro: General: patient oriented x3 Psych: Appearance: grossly normal and well kempt Mental Status: mental status grossly normal Speech and movement: Normal speech and movement present Course Course Course Narrative: Repeat labs drawn per Dr. Mullen including CBC, LFTs and BMP. All within normal limits. MTX [address] Mullen. Will administer in the ER and have her get repeat HCG levels on day #4 and #7. Patient has been counseled and is agreeable with plan. Critical Care Time Critical Care Time Critical Care Time: No Discharge Plan Discharge Clinical Impression: Ectopic Qualifiers: Location of ectopic : tubal Intrauterine status: without intrauterine Laterality: left Qualified Code(s): O00.102 - Left tubal without intrauterine Patient Disposition: Home, Self-Care Instructions: Ectopic (DC) Additional Instructions: You need repeat HCG levels on day #4 and again on #7 from today. Follow up with Dr. Gentile on Wednesday as scheduled. If you have any abdominal pain come to the ER for evaluation. Prescriptions: No Action multivitamin Tablet 1 tab PO DAILY RF: 0 AOA-hinf-UL-omega 3-fat com #1 27-1-300 mg capsule PO RF: 0 prenat.vits,edward,hcd-mwip-pxgcd Tablet 1 tab PO DAILY RF: 0
[2020-10-20] MEDS: metHOTREXate sodium 125 MG/5 ML SYRINGE 88 MG IM (14:37)
== END 2020-10-20 15:00 | disposition home or self-care (01) ==
PROVIDERS: Emergency Provider Emergency Medicine Emergency Medical Services; PCP Internal Medicine
DX: O00.102 Left tubal pregnancy without intrauterine pregnancy (principal); Z3A.00 Weeks of gestation of pregnancy not specified
CPT/HCPCS: 96372; 99284; J9250

== ENCOUNTER 2020-10-23 12:49 | Outpatient (REF) | payer OTHER, SELFPAY ==
[2020-10-23 15:00] LABS: HCG Quantitative 398 mIU/mL
== END 2020-10-23 12:50 | disposition home or self-care (01) ==
LOC: HO.LAB 12:49
PROVIDERS: Absent Provider Obstetrics & Gynecology; PCP Internal Medicine; Visit Provider Obstetrics & Gynecology
DX: O00.102 Left tubal pregnancy without intrauterine pregnancy (principal)
CPT/HCPCS: 36415; 84702

== ENCOUNTER 2020-10-26 07:11 | Outpatient (REF) | payer OTHER, SELFPAY ==
[2020-10-26 08:12] LABS: Alanine Aminotransferase 10 U/L (0-31); Aspartate Amino Transferase 13 U/L (5-31)
[2020-10-26 08:18] LABS: HCG Quantitative 279 mIU/mL
== END 2020-10-26 07:12 | disposition home or self-care (01) ==
LOC: HO.LAB 07:11
PROVIDERS: Obstetrics & Gynecology; PCP Internal Medicine; Visit Provider Obstetrics & Gynecology
DX: O00.102 Left tubal pregnancy without intrauterine pregnancy (principal)
CPT/HCPCS: 36415; 84450; 84460; 84702

== ENCOUNTER 2020-11-04 09:52 | Outpatient (REF) | payer OTHER, SELFPAY ==
[2020-11-04 11:22] LABS: HCG Quantitative 169 mIU/mL
== END 2020-11-04 09:53 | disposition home or self-care (01) ==
LOC: HO.LAB 09:52
PROVIDERS: PCP Internal Medicine; Visit Provider Obstetrics & Gynecology
DX: O00.102 Left tubal pregnancy without intrauterine pregnancy (principal)
CPT/HCPCS: 36415; 84702

== ENCOUNTER 2020-11-16 08:57 | Outpatient (REF) | payer OTHER, SELFPAY ==
[2020-11-16 10:08] LABS: HCG Quantitative 91 mIU/mL
== END 2020-11-16 08:58 | disposition home or self-care (01) ==
LOC: HO.LAB 08:57
PROVIDERS: Obstetrics & Gynecology; Visit Provider Physician Assistant Medical
DX: O03.9 Complete or unspecified spontaneous abortion without complication (principal)
CPT/HCPCS: 36415; 84702

== ENCOUNTER → 2020-11-18 14:42 | Outpatient (BNVA) | payer OTHER, SELFPAY | PROVIDERS: PCP Internal Medicine; Visit Provider Obstetrics & Gynecology ==

== ENCOUNTER 2020-12-01 11:39 | Outpatient (REF) | payer OTHER, SELFPAY ==
[2020-12-01 12:41] LABS: HCG Quantitative < 2 mIU/mL
== END 2020-12-01 11:40 | disposition home or self-care (01) ==
LOC: HO.LAB 11:39
PROVIDERS: PCP Internal Medicine; Referring Provider Obstetrics & Gynecology; Visit Provider Emergency Medicine
DX: O00.102 Left tubal pregnancy without intrauterine pregnancy (principal)
CPT/HCPCS: 36415; 84702

== ENCOUNTER → 2020-12-16 11:15 | Outpatient (BNVA) | payer OTHER, SELFPAY | PROVIDERS: PCP Internal Medicine; Visit Provider Obstetrics & Gynecology ==

== ENCOUNTER 2020-12-28 06:45 | Outpatient (REF) | payer OTHER, SELFPAY ==
[2020-12-28 07:32] LABS: COVID-19 Test Negative (Negative); IDNOW Serial# 08D9AD1C; Strep A Nucleic Acid Negative (Negative)
== END 2020-12-28 06:46 | disposition home or self-care (01) ==
LOC: HO.LAB 06:45
PROVIDERS: Visit Provider Emergency Medicine
DX: Z20.822 Contact with and (suspected) exposure to COVID-19 (principal); J02.9 Acute pharyngitis, unspecified
CPT/HCPCS: 36415; 87635; 87651

== ENCOUNTER → 2021-02-24 14:15 | Outpatient (BNVA) | payer OTHER, SELFPAY | PROVIDERS: PCP Internal Medicine; Visit Provider Obstetrics & Gynecology ==

== ENCOUNTER 2021-03-31 16:37 | Outpatient (REF) | payer OTHER, SELFPAY ==
[2021-03-31 17:39] LABS: HCG Quantitative 72 mIU/mL
== END 2021-03-31 16:38 | disposition home or self-care (01) ==
LOC: HO.LAB 16:37
PROVIDERS: PCP Internal Medicine; Visit Provider Obstetrics & Gynecology
DX: Z34.90 Encounter for supervision of normal pregnancy, unspecified, unspecified trimester (principal)
CPT/HCPCS: 36415; 84702

== ENCOUNTER → 2021-04-01 12:25 | Outpatient (BNVA) | payer OTHER, SELFPAY | PROVIDERS: PCP Internal Medicine; Visit Provider Obstetrics & Gynecology ==

== ENCOUNTER 2021-04-02 09:50 | Outpatient (REF) | payer OTHER, SELFPAY ==
[2021-04-02 11:42] LABS: HCG Quantitative 110 mIU/mL
== END 2021-04-02 09:51 | disposition home or self-care (01) ==
LOC: HO.LAB 09:50
PROVIDERS: PCP Internal Medicine; Visit Provider Obstetrics & Gynecology
DX: Z34.90 Encounter for supervision of normal pregnancy, unspecified, unspecified trimester (principal)
CPT/HCPCS: 36415; 84702

== ENCOUNTER 2021-04-04 08:53 | Outpatient (REF) | payer OTHER, SELFPAY ==
[2021-04-04 10:29] LABS: HCG Quantitative 200 mIU/mL
== END 2021-04-04 08:54 | disposition home or self-care (01) ==
LOC: HO.LAB 08:53
PROVIDERS: PCP Internal Medicine; Visit Provider Obstetrics & Gynecology
DX: Z34.90 Encounter for supervision of normal pregnancy, unspecified, unspecified trimester (principal)
CPT/HCPCS: 36415; 84702

== ENCOUNTER 2021-04-07 10:20 | Outpatient (REF) | payer OTHER, SELFPAY ==
[2021-04-07 11:36] LABS: HCG Quantitative 644 mIU/mL
== END 2021-04-07 10:21 | disposition home or self-care (01) ==
LOC: HO.LAB 10:20
PROVIDERS: PCP Internal Medicine; Visit Provider Obstetrics & Gynecology
DX: Z34.90 Encounter for supervision of normal pregnancy, unspecified, unspecified trimester (principal)
CPT/HCPCS: 36415; 84702

== ENCOUNTER 2021-04-09 07:36 | Outpatient (REF) | payer OTHER, SELFPAY ==
[2021-04-09 08:27] LABS: HCG Quantitative 963 mIU/mL
== END 2021-04-09 07:37 | disposition home or self-care (01) ==
LOC: HO.LAB 07:36
PROVIDERS: PCP Internal Medicine; Visit Provider Obstetrics & Gynecology
DX: O09.10 Supervision of pregnancy with history of ectopic pregnancy, unspecified trimester (principal); Z3A.00 Weeks of gestation of pregnancy not specified
CPT/HCPCS: 36415; 84702

== ENCOUNTER 2021-04-11 06:30 | Outpatient (REF) | payer OTHER, SELFPAY ==
--- NOTE | ~2021-04-11 | US_ITS ---
EXAMINATION: US OBSTETRICAL ULTRASOUND CLINICAL INFORMATION: Positive test. History of previous ectopic . COMPARISON: None. LMP: Unsure. Gestational age by maternal dates is . Estimated date of delivery by maternal dates is . TECHNIQUE: Transabdominal and transvaginal first trimester OB ultrasound FINDINGS: The uterus is anteverted and measures 10.6 x 6 x 8.5 cm in dimension. No focal uterine lesion is seen. The endometrium is thickened and heterogeneous appearing measuring 2.7 cm. No intrauterine is seen. The cervix is normal appearing. The right ovary measures 3 x 1.6 x 1.5 cm. There is a complex cyst in the right ovary with slightly echogenic wall and internal echoes. The left ovary measures 3.9 x 1.7 x 2.3 cm. There is a 2.2 x 1.5 x 2 cm complex left ovarian cyst with thick wall. There is a small exophytic or paraovarian left adnexal cyst measuring 8 x 8 x 9 mm. There is a small amount of fluid in the pelvis. US/US OB pelvic and transvaginal IMPRESSION: No intrauterine seen. Thickened heterogeneous-appearing endometrium. Bilateral complex ovarian cysts. Small amount of fluid in the pelvis. Differential would include an early intrauterine that is too early to visualize, spontaneous and ectopic . Correlation with quantitative beta hCG and follow-up OB ultrasound recommended.
[2021-04-11 07:48] LABS: HCG Quantitative 1554 mIU/mL
== END 2021-04-11 06:31 | disposition home or self-care (01) ==
LOC: HO.US 06:30
PROVIDERS: PCP Internal Medicine; Visit Provider Obstetrics & Gynecology
DX: Z32.01 Encounter for pregnancy test, result positive (principal)
CPT/HCPCS: 36415; 76801; 76817; 84702

== ENCOUNTER 2021-04-11 12:33 | Outpatient (REF) | payer OTHER, SELFPAY ==
[2021-04-12 02:02] LABS: CT PCR NOT DETECTED (Not Detect.); NG PCR NOT DETECTED (Not Detect.)
== END 2021-04-11 12:34 | disposition home or self-care (01) ==
LOC: HO.LAB 12:33
PROVIDERS: Visit Provider Obstetrics & Gynecology
DX: O26.859 Spotting complicating pregnancy, unspecified trimester (principal); Z3A.00 Weeks of gestation of pregnancy not specified
CPT/HCPCS: 87491; 87591

== ENCOUNTER 2021-04-13 12:47 | Outpatient (REF) | payer OTHER, SELFPAY ==
[2021-04-13 13:44] LABS: HCG Quantitative 2012 mIU/mL
== END 2021-04-13 12:48 | disposition home or self-care (01) ==
LOC: HO.LAB 12:47
PROVIDERS: Obstetrics & Gynecology; Visit Provider Internal Medicine
DX: Z34.90 Encounter for supervision of normal pregnancy, unspecified, unspecified trimester (principal)
CPT/HCPCS: 36415; 84702

== ENCOUNTER 2021-04-13 16:38 | Emergency (ER) | payer OTHER, SELFPAY ==
--- NOTE | ~2021-04-13 | US_ITS ---
EXAMINATION: US OBSTETRICAL ULTRASOUND CLINICAL INFORMATION: Bleeding and cramping. COMPARISON: Obstetrical ultrasound dated 04/11/2021. LMP: Unsure. Gestational age by maternal dates is n/a. Estimated date of delivery by maternal dates is n/a. TECHNIQUE: Transabdominal and transvaginal imaging was obtained. FINDINGS: There is a single intrauterine gestational sac within the endometrial cavity, new when compared to the prior examination. This has a mean sac diameter of 0.4 cm, corresponding to gestational age of 4 weeks 6 days. No yolk sac or pole identified. LEYLA (estimated date of delivery): 12/15/2021 +/- 4 days. Probable ovarian fibroids measuring up to 0.6 and 1.0 cm. MATERNAL ADNEXA: The right maternal ovary measures 2.7 x 2.5 x 1.4 cm. There is a possible corpus luteum measuring up to 1.3 cm. The left maternal ovary measures 3.2 x 2.4 x 2.1 cm. There is a left adnexal cyst versus corpus luteum measuring 1.9 x 1.5 x 1.8 cm. No maternal pelvic ascites. US/US OB pelvic and transvaginal IMPRESSION: 1. Single intrauterine gestation with ultrasound gestational age of 4 weeks 6 days +/- 4 days. No yolk sac or pole identified, likely due to early . 2. Estimated date of delivery is 12/15/2021 +/- 4 days. 3. Probable right ovarian corpus luteum. Left ovarian corpus luteum versus cyst.
--- NOTE | ~2021-04-13 | US_ITS ---
EXAMINATION: US OBSTETRICAL ULTRASOUND CLINICAL INFORMATION: Bleeding and cramping. COMPARISON: Obstetrical ultrasound dated 04/11/2021. LMP: Unsure. Gestational age by maternal dates is n/a. Estimated date of delivery by maternal dates is n/a. TECHNIQUE: Transabdominal and transvaginal imaging was obtained. FINDINGS: There is a single intrauterine gestational sac within the endometrial cavity, new when compared to the prior examination. This has a mean sac diameter of 0.4 cm, corresponding to gestational age of 4 weeks 6 days. No yolk sac or pole identified. LEYLA (estimated date of delivery): 12/15/2021 +/- 4 days. Probable ovarian fibroids measuring up to 0.6 and 1.0 cm. MATERNAL ADNEXA: The right maternal ovary measures 2.7 x 2.5 x 1.4 cm. There is a possible corpus luteum measuring up to 1.3 cm. The left maternal ovary measures 3.2 x 2.4 x 2.1 cm. There is a left adnexal cyst versus corpus luteum measuring 1.9 x 1.5 x 1.8 cm. No maternal pelvic ascites. US/US OB <= 14 weeks fetus IMPRESSION: 1. Single intrauterine gestation with ultrasound gestational age of 4 weeks 6 days +/- 4 days. No yolk sac or pole identified, likely due to early . 2. Estimated date of delivery is 12/15/2021 +/- 4 days. 3. Probable right ovarian corpus luteum. Left ovarian corpus luteum versus cyst.
[2021-04-13 16:43] VITALS: BP 124/87; PULSE 79; RESP 18; TEMP 36.9; O2SAT 100; BMI 25.0
--- NOTE | 2021-04-13 17:13 | ED_ITS ---
HPI - Female Genitourinary General Chief complaint: Vaginal Bleeding Stated complaint: miscarriage? Time Seen by Provider: 04/13/21 16:59 Source: patient Mode of arrival: ambulatory Limitations: no limitations History of Present Illness HPI Narrative: 35-year-old female with history of multiple missed and e ctopic presents with vaginal bleeding during 1st trimester . She has not had a menstrual cycle since March 04, and states that she has been being followed closely by Dr Mullen, and was asked to present to the emergency department for evaluation. MD elicited complaint: vaginal bleeding, pelvic pain and possible miscarriage Pertinent past history: prior miscarriages and ectopic Onset (ago): day(s) (1) Location of symptoms: vaginal Severity: moderate Severity scale (1-10): 7 Quality of pain: cramping Consistency: intermittent Vaginal discharge: none Vaginal bleeding: scant Exacerbating factors: none Relieving factors: none Associated symptoms: abdominal pain Treatment prior to arrival: none Sexual activity: Yes Patient : Yes Date of Last Menstrual Period: 03/04/21 Related Data Home Medications Medication Instructions Recorded Confirmed UJM-btwr-SP-omega 3-fat com #1 27 cap PO 08/05/20 08/15/20 mg-1 mg-300 mg capsule multivitamin 1 tab PO DAILY 08/05/20 08/15/20 prenat.vits,edward,xjd-mokn-stnft 1 tab PO DAILY 10/11/20 Previous Rx's Medication Instructions Recorded ondansetron 8 mg disintegrating 8 mg PO Q8H PRN #30 tab 10/23/20 tablet polyethylene glycol 3350 17 17 g PO DAILY #238 g 10/23/20 gram/dose oral powder sennosides 8.6 mg-docusate sodium 1 tab-cap PO BEDTIME #30 tab 10/23/20 50 mg tablet (Laxative Stool Softener With Senna) desogestrel 0.15 mg-ethinyl 1 tab PO DAILY 28 Days #28 tab 11/18/20 estradiol 0.03 mg tablet (Apri) clotrimazole-betamethasone 1 1 appl TOPICAL BID 5 Days #45 g 04/07/21 %-0.05 % topical cream terconazole 0.4 % vaginal cream 1 appful VAGINAL BEDTIME 7 Days 04/07/21 #45 g Allergies Allergy/AdvReac Type Severity Reaction Status Date / Time No Known Allergies Allergy Verified 04/13/21 16:42 Review of Systems Review of Systems: Constitutional: No Fever, No Chills ENT/Mouth: No Ear Pain, No Hoarseness, No sore throat Eyes: No Eye Pain, No Swelling, No Redness, No Foreign Body Cardiovascular: No Chest Pain, No SOB Respiratory: No Cough, No Dyspnea Gastrointestinal: No Nausea, No Vomiting, No Diarrhea, No abdominal Pain Genitourinary: Positive abdominal cramping, positive vaginal bleeding, No Dysuria, No Hematuria Musculoskeletal: No joint pain, No Myalgias, No Joint Swelling Skin: No Skin lacerations, No rash Neuro: No Weakness, No Numbness, No Paresthesias, No Loss of Consciousness, No Dizziness, No Headache Psych: No Anxiety/Panic, No Depression Heme/Lymph: no easy bruising, no Lymphadenopathy Endocrine: No Polyuria, No Polydipsia Yes all other systems are reviewed and are negative PMFSH Past Medical History Attestation statement: The following information was validated with the patient. Source: old records reviewed Surgical History History of History of knee surgery Date of Last Menstrual Period: 03/04/21 Social History Social History Alcohol intake: never Patient Tobacco Use Status: Never used Tobacco Use of substances other than those prescribed or required for medical reasons: No Advance Directives: No Advance Directives Information Provided: No Patient : Yes Sexual orientation: Straight/Heterosexual Gender identity: Female Physical Exam Vital Signs: Vital Signs: Last Vital Signs Temp 98.5 F 04/13/21 16:43 Pulse 79 04/13/21 16:43 Resp 18 04/13/21 16:43 BP 124/87 04/13/21 16:43 Pulse Ox 100 04/13/21 16:43 Body Mass Index 25.0 Appearance: Alert. Oriented X3. No acute distress. Eyes: Pupils equal, round and reactive to light. ENT: Pharynx normal. Neck: Normal inspection. Neck supple. CVS: Normal heart rate and rhythm. Pulses normal. Respiratory: No respiratory distress. Breath sounds normal. Abdomen: Soft and nontender. Skin: Skin warm and dry. Normal skin color. Normal skin turgor. Extremities: Moves all extremities against resistance. Gait well balanced well coordinated. Neuro: No motor deficit. No sensory deficit. Cranial nerves 2-12 intact. : External Female Exam: normal external appearance Speculum Exam - Vagina: normal appearance of the vagina and vaginal bleeding (Scant) Speculum Exam - Cervix: normal appearance of the cervix and Cervical os closed Bimanual exam- vagina & uterus: normal bimanual exam Bimanual Exam- Adnexa, other: normal adnexae OB/external & speculum: vaginal bleeding (Scant) Course Course Course Narrative: 35-year-old female presents with vaginal bleeding during 1st trimester . She is being closely followed by OBGYN, hCG levels are rising, however slowly. Last menstrual cycle March 04. Patient presents with cramping and vaginal bleeding and was referred to the ED for exam and ultrasound by DR Mullen. 7:18 p.m. ultrasound results indicate viable gestational sac at 4 weeks. Discussion with Sebas, plan is for repeat quant in 2 days and for patient to follow-up in his office after lab draw. Discussion with patient regarding plan of care, patient verbalized understanding of and agrees to plan. Consultations Consultation #1: sebas Time: 19:18 MDM - Female Genitourinary MDM Narrative Medical decision making narrative: Ectopic , miscarriage Medical Records Attestation: I reviewed the patient's medical records. Lab Data Attestation: I reviewed the patient's lab results. Result diagrams: 04/13/21 17:31 04/13/21 17:31 Labs: Lab Results 04/13/21 04/13/21 04/13/21 Range/Units 17:31 17:31 17:38 WBC 4.5 L (4.8-10.8) X10*3/uL RBC 3.95 L (4.20-5.50) X10*6/uL Hgb 12.0 (12.0-16.0) g/dl Hct 36.3 L (37-47) % MCV 91.9 (80-98) fL MCH 30.4 (27.0-33.0) pg MCHC 33.1 (31.0-35.0) g/dl RDW 12.0 (11.0-16.0) % Plt Count 272 (160-400) X10*3/uL MPV 10.6 (9.4-12.3) fL Immature Gran % (Auto) 0.2 (0.0-0.4) % Neut % (Auto) 45.3 (45-73) % Lymph % (Auto) 39.2 (20-40) % Gregory % (Auto) 10.9 (2-11) % Eos % (Auto) 4.0 (0-4) % Baso % (Auto) 0.4 (0-2) % Lymph # (Auto) 1.8 (1.2-4.9) X10*3/uL Gregory # (Auto) 0.5 (0.1-1.2) X10*3/uL Eos # (Auto) 0.2 (0.0-0.4) X10*3/uL Baso # (Auto) 0.0 (0.0-0.2) X10*3/uL Abs Immat Gran (auto) 0.01 (0.00-0.03) X10*3/uL Absolute Neuts (auto) 2.0 (2.0-8.3) X10*3/uL Absolute Nucleated RBC 0.000 (0.0-0.012) X10*3/uL Nucleated RBC % (auto) 0.0 (0.0-0.2) /100WBC Sodium 139 (135-145) mmol/L Potassium 4.1 (3.3-5.1) mmol/L Chloride 107 (96-108) mmol/L Carbon Dioxide 25 (22-29) mmol/L Anion Gap 11 L (12-20) BUN 11 (9-16) mg/dL Creatinine 0.68 (0.5-1.4) mg/dL Estim Creat Clear Calc 104.9 Estimated GFR > 60 Random Glucose 91 (60-115) mg/dL Calcium 9.0 (8.4-10.2) mg/dL Beta HCG, Quant 2038 mIU/mL Blood Type O Positive Imaging Data Transvaginal ultrasound OB: Attestation: I personally reviewed and interpreted this imaging study as follows: Radiologist's impression: US/US OB <= 14 weeks fetus IMPRESSION: 1. Single intrauterine gestation with ultrasound gestational age of 4 weeks 6 days +/- 4 days. No yolk sac or pole identified, likely due to early . ? 2. Estimated date of delivery is 12/15/2021 +/- 4 days. ? 3. Probable right ovarian corpus luteum. Left ovarian corpus luteum versus cyst. Discharge Plan Discharge Clinical Impression: Threatened Patient Disposition: Home, Self-Care Instructions: Threatened Miscarriage (ED) Additional Instructions: You were evaluated for vaginal bleeding during 1st trimester of . Pelvic ultrasound indicates gestational sac at age 4 weeks. Please obtain lab levels prior to your appointment tomorrow with Dr. Mullen. Thank you for choosing this emergency department for evaluation. Please follow-up with primary care physician as needed. Return to the emergency department for any new, concerning, or worsening symptoms. Prescriptions: No Action terconazole 0.4 % cream 1 appful vaginal BEDTIME 7 Days Qty: 45 RF: 0 clotrimazole-betamethasone 1-0.05 % cream 1 appl topical BID 5 Days Qty: 45 RF: 0 ondansetron 8 mg tablet,disintegrating 8 mg PO Q8H PRN (Reason: nausea and vomiting) Qty: 30 RF: 1 polyethylene glycol 3350 17 gram/dose powder 17 g PO DAILY Qty: 238 RF: 1 sennosides-docusate sodium [Lax Stool Softener With Senna] 8.6-50 mg tablet 1 tab-cap PO BEDTIME Qty: 30 RF: 1 desogestrel-ethinyl estradiol [Apri] 0.15-0.03 mg tablet 1 tab PO DAILY 28 Days Qty: 28 RF: 2 multivitamin Tablet 1 tab PO DAILY RF: 0 UFI-zfnf-HM-omega 3-fat com #1 27-1-300 mg capsule PO RF: 0 prenat.vits,edward,ovv-mkgt-cnrfu Tablet 1 tab PO DAILY RF: 0 Referrals: Sergei Mullen MD [Physician] - 2 days (Follow-up in 2 days) Interventions: ED Discharge Assessment Last Done: 04/13/21 20:12 Discharge Date/Time: 04/13/21 20:15
[2021-04-13 17:35] LABS: MANUAL DIFF FLAG NO
[2021-04-13 17:38] LABS: Basophils Percent Auto 0.4 % (0-2); Eosinophils Absolute Auto 0.2 X10*3/uL (0.0-0.4); Hematocrit 36.3 % (37-47); Imm Gran Abs Auto 0.01 X10*3/uL (0.00-0.03); Imm Gran Pct Auto 0.2 % (0.0-0.4); Lymphocytes Absolute Auto 1.8 X10*3/uL (1.2-4.9); Lymphocytes Percent Auto 39.2 % (20-40); Mean Corpuscular HGB Conc 33.1 g/dl (31.0-35.0); Mean Corpuscular Hemoglobin 30.4 pg (27.0-33.0); Mean Corpuscular Volume 91.9 fL (80-98); Mean Platelet Volume 10.6 fL (9.4-12.3); Monocytes Absolute Auto 0.5 X10*3/uL (0.1-1.2); Monocytes Percent Auto 10.9 % (2-11); Neutrophils Percent Auto 45.3 % (45-73); Platelet Count 272 X10*3/uL (160-400); Red Blood Count 3.95 X10*6/uL (4.20-5.50); White Blood Count 4.5 X10*3/uL (4.8-10.8)
[2021-04-13 17:48] LABS: Anion Gap 11 (12-20); Blood Urea Nitrogen 11 mg/dL (9-16); Carbon Dioxide 25 mmol/L (22-29); Chloride 107 mmol/L (96-108); Creatinine Clr Calc Pharmacy 104.9; Estimated Glomerular Filt Rate > 60; Glucose Random 91 mg/dL (60-115); Potassium 4.1 mmol/L (3.3-5.1); Sodium 139 mmol/L (135-145)
[2021-04-13 17:56] LABS: HCG Quantitative 2038 mIU/mL
--- NOTE | 2021-04-13 19:21 | PC.NURSE ---
Pt alert and oriented x4, calm and cooperative. Pt states lower abdominal cramping at this time 09/18. Pt denies N/V. Pt resting in stretcher without issues at this time, will continue to monitor.
--- NOTE | 2021-04-13 20:14 | PC.NURSE ---
Pt discharged, pt educated on dc and stated an understanding. No IV in place. Vitals stable. Pt ambulated to private car without issues.
== END 2021-04-13 20:15 | disposition home or self-care (01) ==
PROVIDERS: Nurse Practitioner Family; Emergency Provider Emergency Medicine Emergency Medical Services; PCP Internal Medicine
DX: O20.0 Threatened abortion (principal); Z3A.01 Less than 8 weeks gestation of pregnancy; Z79.899 Other long term (current) drug therapy
CPT/HCPCS: 36415; 76801; 76817; 80048; 84702; 85025; 86900; 86901; 99284

== ENCOUNTER 2021-04-15 08:06 | Outpatient (REF) | payer OTHER, SELFPAY ==
[2021-04-15 08:46] LABS: HCG Quantitative 2214 mIU/mL
== END 2021-04-15 08:07 | disposition home or self-care (01) ==
LOC: HO.LAB 08:06
PROVIDERS: PCP Internal Medicine; Visit Provider Obstetrics & Gynecology
DX: O09.10 Supervision of pregnancy with history of ectopic pregnancy, unspecified trimester (principal); Z3A.00 Weeks of gestation of pregnancy not specified
CPT/HCPCS: 36415; 84702

== ENCOUNTER 2021-04-15 14:58 | Outpatient (REF) | payer OTHER, SELFPAY ==
--- NOTE | ~2021-04-15 | US_ITS ---
EXAMINATION: US OBSTETRICAL ULTRASOUND CLINICAL INFORMATION: Early . Prior history of ectopic . Recent bleeding and cramping. BhCG rise not doubling (8 on 04/13/2021 and 2214 on 04/15/2021). COMPARISON: Pelvic ultrasound 04/13/2021, 04/11/2021. TECHNIQUE: Ultrasound of the maternal pelvis is performed using transabdominal and transvaginal transducers. Transvaginal imaging is performed due to inadequate visualization transabdominally. M-mode Doppler is also performed. FINDINGS: Cystic structure within uterine cavity suggesting early intrauterine gestational sac again noted but without interval yolk sac or embryo. The average sac dimension is only 0.53 cm (5 weeks 0 days). There is no subchorionic hemorrhage or hematoma. Small intrauterine fibroids again suggested, measuring 1.1 cm and 0.6 cm, respectively. MATERNAL ADNEXA: The right maternal ovary measures 2.5 x 1.3 x 1.7 cm. Small hypoechoic follicle is present within the right ovary measuring only 1.2 x 0.8 x 1.1 cm. No surrounding hyperemia on color Doppler. The left maternal ovary measures 3.2 x 1.6 x 1.6 cm. There is a 0.6 cm follicle in the left ovary. Small avascular left paraovarian cyst again seen just under 1 cm. Avascular solid nodule noted on prior exam is stable and could be related to bowel at real-time imaging. There is small amount of pelvic ascites. US/US OB follow up IMPRESSION: 1. Probable tiny intrauterine gestational sac, 0.53 cm (5 weeks 0 days). No visible yolk sac or embryo at this time. Recommend follow-up beta hCG and ultrasound to confirm developing is usual. 2. No interval adnexal mass. Mild pelvic ascites again seen.
== END 2021-04-15 14:59 | disposition home or self-care (01) ==
LOC: HO.US 14:58
PROVIDERS: Visit Provider Obstetrics & Gynecology
DX: O20.9 Hemorrhage in early pregnancy, unspecified (principal); O09.10 Supervision of pregnancy with history of ectopic pregnancy, unspecified trimester; Z3A.00 Weeks of gestation of pregnancy not specified
CPT/HCPCS: 76816

== ENCOUNTER 2021-04-17 09:34 | Outpatient (REF) | payer OTHER, SELFPAY ==
[2021-04-17 11:05] LABS: HCG Quantitative 1515 mIU/mL
== END 2021-04-17 09:35 | disposition home or self-care (01) ==
LOC: HO.LAB 09:34
PROVIDERS: PCP Internal Medicine; Visit Provider Obstetrics & Gynecology
DX: O00.102 Left tubal pregnancy without intrauterine pregnancy (principal)
CPT/HCPCS: 36415; 84702

== ENCOUNTER 2021-04-22 11:06 | Outpatient (REF) | payer OTHER, SELFPAY ==
[2021-04-22 12:36] LABS: HCG Quantitative 89 mIU/mL
== END 2021-04-22 11:07 | disposition home or self-care (01) ==
LOC: HO.LAB 11:06
PROVIDERS: PCP Internal Medicine; Visit Provider Obstetrics & Gynecology
DX: O03.9 Complete or unspecified spontaneous abortion without complication (principal)
CPT/HCPCS: 36415; 84702

== ENCOUNTER 2021-05-12 07:49 | Outpatient (REF) | payer OTHER, SELFPAY ==
[2021-05-12 08:57] LABS: HCG Quantitative < 2 mIU/mL
== END 2021-05-12 07:50 | disposition home or self-care (01) ==
LOC: HO.LAB 07:49
PROVIDERS: PCP Internal Medicine; Visit Provider Obstetrics & Gynecology
DX: N96 Recurrent pregnancy loss (principal)
CPT/HCPCS: 36415; 84702

== ENCOUNTER → 2021-05-13 11:33 | Outpatient (BNVA) | payer OTHER, SELFPAY | PROVIDERS: PCP Internal Medicine; Visit Provider Obstetrics & Gynecology ==

== ENCOUNTER 2021-05-23 10:11 | Outpatient (REF) | payer OTHER, SELFPAY ==
[2021-05-23 10:40] LABS: COVID-19 Test Negative (Negative); IDNOW Serial# 9DD0AD1C
== END 2021-05-23 10:12 | disposition home or self-care (01) ==
LOC: HO.LAB 10:11
PROVIDERS: Visit Provider Internal Medicine
DX: Z20.822 Contact with and (suspected) exposure to COVID-19 (principal)
CPT/HCPCS: 36415; 87635

== ENCOUNTER 2021-06-02 06:38 | Outpatient (REF) | payer OTHER, SELFPAY ==
[2021-06-02 07:11] LABS: COVID-19 Test Negative (Negative)
== END 2021-06-02 06:39 | disposition home or self-care (01) ==
LOC: HO.LAB 06:38
PROVIDERS: Visit Provider Internal Medicine
DX: Z20.822 Contact with and (suspected) exposure to COVID-19 (principal)
CPT/HCPCS: 36415; 87635

== ENCOUNTER 2021-06-28 12:09 | Outpatient (REF) | payer OTHER, SELFPAY ==
[2021-06-28 12:54] LABS: COVID-19 Test Negative (Negative); IDNOW Serial# 9DD0AD1C
== END 2021-06-28 12:10 | disposition home or self-care (01) ==
LOC: HO.LAB 12:09
PROVIDERS: Visit Provider Internal Medicine
DX: Z20.822 Contact with and (suspected) exposure to COVID-19 (principal)
CPT/HCPCS: 36415; 87635

== ENCOUNTER → 2021-07-17 11:42 | Outpatient (BNVA) | payer OTHER, SELFPAY | PROVIDERS: PCP Internal Medicine; Visit Provider Obstetrics & Gynecology ==

== ENCOUNTER 2021-07-18 06:58 | Outpatient (REF) | payer OTHER, SELFPAY ==
[2021-07-18 07:27] LABS: COVID-19 Test Negative (Negative)
== END 2021-07-18 06:59 | disposition home or self-care (01) ==
LOC: HO.LAB 06:58
PROVIDERS: Visit Provider Internal Medicine
DX: Z20.822 Contact with and (suspected) exposure to COVID-19 (principal)
CPT/HCPCS: 87635

== ENCOUNTER 2021-07-21 13:56 | Outpatient (REF) | payer OTHER, SELFPAY ==
[2021-07-21 14:26] LABS: COVID-19 Test Negative (Negative)
== END 2021-07-21 13:57 | disposition home or self-care (01) ==
LOC: HO.LAB 13:56
PROVIDERS: Visit Provider Internal Medicine
DX: Z20.822 Contact with and (suspected) exposure to COVID-19 (principal)
CPT/HCPCS: 87635

== ENCOUNTER 2021-07-26 07:08 | Outpatient (REF) | payer OTHER, SELFPAY ==
[2021-07-26 07:29] LABS: COVID-19 Test Positive (Negative); IDNOW Serial# 9DD0AD1C
== END 2021-07-26 07:09 | disposition home or self-care (01) ==
LOC: HO.LAB 07:08
PROVIDERS: PCP Internal Medicine; Visit Provider Internal Medicine
DX: Z20.822 Contact with and (suspected) exposure to COVID-19 (principal)
CPT/HCPCS: 87635

== ENCOUNTER 2021-09-04 11:02 | Outpatient (REF) | payer OTHER, SELFPAY ==
[2021-09-04 11:30] LABS: MANUAL DIFF FLAG NO
[2021-09-04 11:38] LABS: Basophils Percent Auto 0.3 % (0-2); Eosinophils Absolute Auto 0.1 X10*3/uL (0.0-0.4); Eosinophils Percent Auto 2.1 % (0-4); Hematocrit 40.1 % (37.0-47.0); Hemoglobin 12.9 g/dl (12.0-16.0); Lymphocytes Absolute Auto 1.4 X10*3/uL (1.2-4.9); Lymphocytes Percent Auto 41.6 % (20-40); Mean Corpuscular HGB Conc 32.2 g/dl (31.0-35.0); Mean Corpuscular Hemoglobin 29.9 pg (27.0-33.0); Mean Platelet Volume 10.1 fL (9.4-12.3); Monocytes Absolute Auto 0.4 X10*3/uL (0.1-1.2); Monocytes Percent Auto 10.6 % (2-11); Neutrophils Absolute Auto 1.5 x10*3/uL (2.0-8.3); Neutrophils Percent Auto 45.4 % (45-73); Platelet Count 242 X10*3/uL (160-400); Red Blood Count 4.31 X10*6/uL (4.20-5.50); Red Cell Distribution Width 11.7 % (11.0-16.0); White Blood Count 3.3 X10*3/uL (4.8-10.8)
[2021-09-04 12:10] LABS: Alanine Aminotransferase 11 U/L (0-31); Albumin Level 4.3 g/dL (3.5-5.0); Alkaline Phosphatase 52 U/L (39-117); Anion Gap 10 (12-20); Aspartate Amino Transferase 18 U/L (5-31); Bilirubin Total 0.7 mg/dL (0.0-1.0); Blood Urea Nitrogen 18 mg/dL (9-16); C Reactive Protein 0.06 mg/dL (< or = 0.50); Calcium 9.6 mg/dL (8.4-10.2); Carbon Dioxide 31 mmol/L (22-29); Chloride 103 mmol/L (96-108); Estimated Glomerular Filt Rate > 60; Glucose Random 87 mg/dL (60-115); Iron 68 mcg/dL (30-160); Percent Iron Saturation 20 % (15-50); Potassium 4.6 mmol/L (3.3-5.1); Sodium 139 mmol/L (135-145); Total Iron Binding Capacity 344 mcg/dL (228-428); Total Protein 7.2 g/dL (6.5-8.0); Unsaturated Iron Binding 276 ug/dL
[2021-09-04 12:21] LABS: Erythrocyte Sedimentation Rate 8 MM/HR (0-20); TSH reflex Free T4 0.93 uIU/mL (0.32-4.0); Vitamin D 25-OH Total 20.3 ng/mL (>30)
[2021-09-04 12:32] LABS: Appearance Urine HAZY; Color Urine YELLOW; Glucose Urine UA NEG (NEG); Leukocyte Esterase Urine NEG (NEG); Nitrite Urine NEG (NEG); Urine Blood NEG (NEG); Urine Ketones NEG (NEG); Urine Protein NEG (NEG-TRACE)
[2021-09-04 12:46] LABS: Folate 8.1 ng/mL (> or = 4.0); Vitamin B12 771 pg/mL (200-900)
[2021-09-05 18:52] LABS: Follicle Stimulating Hormone 91.5 mIU/mL; Lutenizing Hormone 48.5 mIU/mL
== END 2021-09-04 11:03 | disposition home or self-care (01) ==
LOC: HO.LAB 11:02
PROVIDERS: PCP Internal Medicine; Visit Provider Internal Medicine
DX: L65.9 Nonscarring hair loss, unspecified (principal); R23.2 Flushing; R53.83 Other fatigue; E55.9 Vitamin D deficiency, unspecified; D50.9 Iron deficiency anemia, unspecified; E53.8 Deficiency of other specified B group vitamins
CPT/HCPCS: 36415; 80053; 81003; 82306; 82607; 82746; 83001; 83002; 83540; 84443; 85025; 85652; 86140

== ENCOUNTER 2022-01-05 06:47 | Outpatient (REF) | payer OTHER, SELFPAY ==
[2022-01-05 07:49] LABS: HCG Quantitative 45 mIU/mL
== END 2022-01-05 06:48 | disposition home or self-care (01) ==
LOC: HO.LAB 06:47
PROVIDERS: Obstetrics & Gynecology; PCP Internal Medicine; Visit Provider Emergency Medicine Emergency Medical Services
DX: O03.9 Complete or unspecified spontaneous abortion without complication (principal)
CPT/HCPCS: 36415; 84702

== ENCOUNTER 2022-06-28 10:31 | Outpatient (REF) | payer OTHER, SELFPAY ==
[2022-06-28 11:13] LABS: COVID-19 Test Negative (Negative); IDNOW Serial# 55D5AD1C; Strep A Nucleic Acid Negative (Negative)
== END 2022-06-28 10:32 | disposition home or self-care (01) ==
LOC: HO.LAB 10:31
PROVIDERS: Visit Provider Internal Medicine
DX: Z20.822 Contact with and (suspected) exposure to COVID-19 (principal)
CPT/HCPCS: 87635; 87651

== ENCOUNTER 2023-06-28 20:33 | Emergency (ER) | payer OTHER, SELFPAY ==
--- NOTE | 2023-06-28 20:57 | ED.EYEPROB ---
HPI - Eye Problem General Chief complaint: Eye Problems Stated complaint: pink eye Time Seen by Provider: 06/28/23 21:03 Source: patient and RN notes reviewed Mode of arrival: ambulatory Limitations: no limitations History of Present Illness HPI Narrative: This is a 37-year-old female presenting to the emergency department with complaints of right eye redness, itchiness and drainage since this morning. Patient states that she woke in her right eye was crusted shut. She states that she was bathing her infant last night and believes that she may have exposed her eye to fecal matter. MD chief complaint: eye redness Mechanism: none Associated symptoms: none Treatments Prior to Arrival: none Related Data Home Medications Medication Instructions Recorded Confirmed aspirin 81 mg tablet 81 mg PO DAILY 08/18/22 08/18/22 ferrous sulfate 325 mg (65 mg 325 mg PO QAM 08/18/22 08/18/22 iron) tablet (FeroSul) folic acid 1 mg tablet 1 mg PO DAILY 08/18/22 08/18/22 prenat.vits,edward,yjl-hseo-azzjt 1 tab PO DAILY 08/18/22 08/18/22 Previous Rx's Medication Instructions Recorded fluconazole 150 mg tablet 150 mg PO DAILY vaginal yeast 11/13/22 infection #1 tab erythromycin 5 mg/gram (0.5 %) eye 0.5 inch ophthalmic (eye) QID #3.5 06/28/23 ointment grams Allergies Allergy/AdvReac Type Severity Reaction Status Date / Time No Known Allergies Allergy Verified 08/18/22 17:24 Review of Systems Review of Systems: Yes all other systems are reviewed and are negative Constitutional: Constitutional: Reports as per [facility] Past Medical History Attestation statement: The following information was validated with the patient. Medical History No pertinent past medical history Surgical History History of History of knee surgery Family History Family History Mother Diabetes High blood pressure Father No problems noted. Social History Social History Housing: House Alcohol intake: never Patient Tobacco Use Status: Never used Tobacco e-Cigarette/Vaping Use: Never Used Second Hand Smoke Exposure: No service: No Current occupational status: employed Sexual orientation: Straight/Heterosexual Gender identity: Female Cognitive needs: No Hearing needs: No Vision needs: No Physical Exam Vital Signs: Vital Signs: Last Vital Signs Temp 97.0 F 06/28/23 21:02 Pulse 75 06/28/23 21:02 Resp 20 06/28/23 21:02 BP 138/80 06/28/23 21:02 Pulse Ox 100 06/28/23 21:02 O2 Del Method Room Air 06/28/23 21:02 BMI result Body Mass Index 23.7 Const: General: cooperative, comfortable and no acute distress Orientation/consciousness: patient oriented x3 Limitations: no limitations HEENT: Head: Yes normal to inspection, Yes normocephalic and Yes atraumatic Ears: hearing grossly normal bilaterally General nose exam: Normal external nose present Face and sinus: Yes normal facial exam Mouth: Normal oral and palatal mucosa present, oropharynx normal and moist mucous membranes Throat: Yes posterior oropharynx normal Eyes: Other: Right eye conjunctiva injected with scant crusting and drainage to right lower lid line. No perio-orbital swelling. No pain with EOMI General: appearance normal, both eyes and all related structures Eyelids: Yes eyelids normal Conjunctivae: conjunctivae normal Sclerae: sclerae normal Pupils: Equal, round and reactive pupils present EOM: EOMs intact bilaterally Neck: Neck: Yes normal visual inspection, Yes full ROM and Yes no lymphadenopathy Lymphatic: no lymphadenopathy noted Chest: Chest palpation & inspection: normal inspection of the chest Resp: Effort & Inspection: normal respiratory effort and able to speak in complete sentences Auscultation: clear to auscultation bilaterally, no crackles, no rales, no rhonchi and no wheezes Cardio: Rate: regular rate Rhythm: regular rhythm Heart sounds: S1 normal heart sound present and S2 normal heart sound present GI: Inspection: Yes normal to inspection Skin: General skin exam: no rashes or lesions noted Trauma: no lacerations or abrasions Wounds: no wounds Neuro: General: patient oriented x3 and moves all extremities Cranial nerves: Yes Equal, round and reactive pupils present Extrem: General: Yes normal to inspection Right upper extremity: normal to inspection Left upper extremity: normal to inspection Right lower extremity: normal to inspection Left lower extremity: normal to inspection Medical Decision Making Medical Decision Making MDM Narrative: this is a 37-year-old female presenting to the emergency department with complaints of right eye redness, pain, in crusting since this morning. On arrival, vital signs within normal limits. Patient has no vision changes. Right eye conjunctiva is injected, itchy. No 5 pain, no pain with extraocular movements. Patient's symptoms consistent with pinkeye, will discharge on erythromycin ointment. Patient given return precautions. Patient understands agrees with plan. Patient stable for discharge. Differential Diagnosis Differential Diagnoses: The differential diagnosis associated with the presentation includes Conjunctivitis, iritis, corneal abrasion-unlikely, hordeolum Discharge Plan Discharge Clinical Impression: Conjunctivitis Patient Disposition: Home, Self-Care Instructions: Conjunctivitis (ED) Additional Instructions: You presented to the ER for a red, itchy eye. Your symptoms are likely due to pink eye. Please use antibiotic erythromycin ointment as directed. Finish the entire course even if you are feeling better. If any new or worsening symptoms occur including but not limited to worsening eye pain, redness, changes in vision, please return for re-evaluation. Prescriptions: New erythromycin 5 mg/gram (0.5 %) ointment 0.5 inch ophthalmic (eye) QID Qty: 3.5 0RF No Action fluconazole 150 mg tablet 150 mg PO DAILY Qty: 1 2RF ferrous sulfate [FeroSul] 325 mg (65 mg iron) tablet 325 mg PO QAArmando cordova.vits,edward,pte-wgld-axksf Tablet 1 tab PO DAILY folic acid 1 mg tablet 1 mg PO DAILY aspirin 81 mg tablet 81 mg PO DAILY
[2023-06-28 21:02] VITALS: BP 138/80; PULSE 75; RESP 20; TEMP 36.1; O2SAT 100; BMI 23.7
--- OUTSIDE RECORDS SUMMARY | 2023-06-28 21:12 | XMS_ITS | Continuity of Care Document ---
Author Name Unknown Organization [facility] Address Unknown Care Team Providers Care Plasma Processing Centrifuge Operator Name Role Phone Josep Silva MD Primary Care Physician Encounter [facility] Date(s): 12/12/21 - 01/11/22 [facility] Allergies, Adverse Reactions, Alerts Substance Reaction Severity Status Latex Active Medications Apri 0.15 mg-0.03 mg oral tablet 1 tablet, By Mouth, Daily, # 30 tablet, 1 Refills, Maintenance, 09/26/21 12:36:00 EDT, [facility] #[id number], Partial fill upon patient request if the prescription is for a schedule II opioid drug., 1 tablet By Mouth Daily, 167.64, cm, 08/12/21... Start Date: 09/26/21 Status: Ordered letrozole 2.5 mg oral tablet 2 tablet = 5 mg, By Mouth, Daily, BEGIN ON 3RD DAY OF CYCLE, # 10 tablet, 3 Refills, Maintenance, 12/02/21 15:17:00 EDT, [facility] #[id number], Partial fill upon patient request if the prescription is for a schedule II opioid drug., 167.64, cm,... Start Date: 12/02/21 Stop Date: 12/22/21 Status: Ordered norethindrone 5 mg oral tablet See Instructions, TAKE 2 TABLETS BY MOUTH DAILY X3DAYS THEN 1 TABLET DAILY UNTIL BLEEDING STOPS, # 12 tablet, Refills 0, Instructions Replace Required Details, Route to Pharmacy Electronically, [facility] #[id number], 167.64, cm, 10/13/21 16:11:0... Start Date: 10/30/21 Status: Ordered Ovidrel 250 mcg/0.5 mL subcutaneous solution See Instructions, Take 1 Subcutaneous Injections Once per cycle when directed, # 1 each, 3 Refills,Maintenance, 12/02/21 15:20:00 EDT, Solution, [facility], Partial fill upon patient request if the prescription is for a schedule II o... Start Date: 12/02/21 Status: Ordered Multivitamins By Mouth, Daily, 0 Refills, Maintenance, 12/02/21 14:20:00 EDT, Partial fill upon patient request if the prescription is for a schedule II opioid drug. Start Date: 12/02/21 Status: Ordered Prometrium 200 mg oral capsule = 200 mg, Vaginally, Daily, 2 DAYS AFTER IUI OR 3-4 AFTER LH SURGE, # 60 capsule, 5 Refills, Maintenance, 12/02/21 15:18:00 EDT, [facility] #[id number], Partial fill upon patient request if the prescription is for a schedule II opioid drug., 167.... Start Date: 12/02/21 Status: Ordered
--- OUTSIDE RECORDS SUMMARY | 2023-06-28 21:12 | XMS_ITS | Continuity of Care Document ---
Author Name Unknown Organization [facility] Address [address], [address] [place] [address]- Care Team Providers Care Paste Mixer Name Role Phone Josep Silva MD Primary Care Physician [phone] [place] [facility] [place](s): 02/09/22 - 03/11/22 [facility] [address], 4[address] [place] [address]- Attending Physician: Mignon Lama Admitting Physician: Mignon Lama Referring Physician: AdmtrMignon Allergies, Adverse Reactions, Alerts Substance Reaction Severity Status Latex Active Medications Apri 0.15 mg-0.03 mg oral tablet 1 tablet, By Mouth, Daily, # 30 tablet, 1 Refills, Maintenance, 09/26/21 12:36:00 EDT, [facility] #[id number], Partial fill upon patient request if the prescription is for a schedule II opioid drug., 1 tablet By Mouth Daily, 167.64, cm, 08/12/21... Start Date: 09/26/21 Status: Ordered doxylamine 25 mg oral tablet 1 tablet = 25 mg, By Mouth, Daily at bedtime, # 30 tablet, 0 Refills, Maintenance, 02/11/22 19:10:00 EDT, [facility] #[id number], Partial fill upon patient request if the prescription is for a schedule II opioid drug., 167.64, cm, 02/11/22 14:03:... Start Date: 02/11/22 Status: Ordered letrozole 2.5 mg oral tablet 2 tablet = 5 mg, By Mouth, Daily, BEGIN ON 3RD DAY OF CYCLE, # 10 tablet, 3 Refills, Maintenance, 12/02/21 15:17:00 EDT, [facility] #[id number], Partial fill upon patient request if the prescription is for a schedule II opioid drug., 167.64, cm,... Start Date: 12/02/21 Stop Date: 12/22/21 Status: Ordered norethindrone 5 mg oral tablet See Instructions, TAKE 2 TABLETS BY MOUTH DAILY X3DAYS THEN 1 TABLET DAILY UNTIL BLEEDING STOPS, # 12 tablet, Refills 0, Instructions Replace Required Details, Route to Pharmacy Electronically, [facility] #[id number], 167.64, cm, 10/13/21 16:11:0... Start Date: 10/30/21 Status: Ordered Ovidrel 250 mcg/0.5 mL subcutaneous solution See Instructions, Take 1 Subcutaneous Injections Once per cycle when directed, # 1 each, 3 Refills,Maintenance, 12/02/21 15:20:00 EDT, Solution, [facility], Partial fill upon patient request if the prescription is for a schedule II o... Start Date: 12/02/21 Status: Ordered PNV Plus oral tablet 1 tablet, By Mouth, Daily, # 90 tablet, 3 Refills, Maintenance, 02/11/22 19:10:00 EDT, [facility] #[id number], Partial fill upon patient request if the prescription is for a schedule II opioid drug., 1 tablet By Mouth Daily, 167.64, cm, 02/11/22... Start Date: 02/11/22 Status: Ordered Multivitamins By Mouth, Daily, 0 Refills, Maintenance, 12/02/21 14:20:00 EDT, Partial fill upon patient request if the prescription is for a schedule II opioid drug. Start Date: 12/02/21 Status: Ordered Prometrium 200 mg oral capsule = 400 mg, Vaginally, 3 times a day, # 180 capsule, 1 Refills, Maintenance, 02/13/22 13:30:00 EDT, [facility] #[id number], Partial fill upon patient request if the prescription is for a schedule II opioid drug., 167.64, cm, 02/11/22 14:03:00 EDT,... Start Date: 02/13/22 Status: Ordered Vitamin B6 25 mg oral tablet 1 tablet = 25 mg, By Mouth, 3 times a day, # 90 tablet, 0 Refills, Maintenance, 02/11/22 19:10:00 EDT, [facility] #[id number], Partial fill upon patient request if the prescription is for a schedule II opioid drug., 167.64, cm, 02/11/22 14:03:00... 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
--- OUTSIDE RECORDS SUMMARY | 2023-06-28 21:12 | XMS_ITS | Continuity of Care Document ---
Author Name Unknown Organization [facility] Address [address] [place] [address]- Care Team Providers Care Supervisor Turkey Farm Name Role Phone Josep Silva MD Primary Care Physician Encounter [facility] Date(s): 01/07/22 - 02/06/22 [facility] [address] [place], [place] [address] Allergies, Adverse Reactions, Alerts Substance Reaction Severity Status Latex Active Medications Apri 0.15 mg-0.03 mg oral tablet 1 tablet, By Mouth, Daily, # 30 tablet, 1 Refills, Maintenance, 09/26/21 12:36:00 EDT, [facility] #[id number], Partial fill upon patient request if the prescription is for a schedule II opioid drug., 1 tablet By Mouth Daily, 167.64, cm, 08/12/21... Start Date: 09/26/21 Status: Ordered letrozole 2.5 mg oral tablet 2 tablet = 5 mg, By Mouth, Daily, BEGIN ON 3RD DAY OF CYCLE, # 10 tablet, 3 Refills, Maintenance, 12/02/21 15:17:00 EDT, [facility] #[id number], Partial fill upon patient request if the prescription is for a schedule II opioid drug., 167.64, cm,... Start Date: 12/02/21 Stop Date: 12/22/21 Status: Ordered norethindrone 5 mg oral tablet See Instructions, TAKE 2 TABLETS BY MOUTH DAILY X3DAYS THEN 1 TABLET DAILY UNTIL BLEEDING STOPS, # 12 tablet, Refills 0, Instructions Replace Required Details, Route to Pharmacy Electronically, [facility] #[id number], 167.64, cm, 10/13/21 16:11:0... Start Date: 10/30/21 Status: Ordered Ovidrel 250 mcg/0.5 mL subcutaneous solution See Instructions, Take 1 Subcutaneous Injections Once per cycle when directed, # 1 each, 3 Refills,Maintenance, 12/02/21 15:20:00 EDT, Solution, [facility], Partial fill upon patient request if the prescription is for a schedule II o... Start Date: 12/02/21 Status: Ordered Multivitamins By Mouth, Daily, 0 Refills, Maintenance, 12/02/21 14:20:00 EDT, Partial fill upon patient request if the prescription is for a schedule II opioid drug. Start Date: 12/02/21 Status: Ordered Prometrium 200 mg oral capsule = 400 mg, Vaginally, 2 times a day, # 120 capsule, 2 Refills, Maintenance, 01/16/22 12:03:00 [id number], Partial fill upon patient request if the prescription is for a schedule II opioid drug., 167.64, cm, 12/02/21 14:17:00 EDT,... Start Date: 01/16/22 Status: Ordered
--- OUTSIDE RECORDS SUMMARY | 2023-06-28 21:12 | XMS_ITS | Continuity of Care Document ---
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 Start Date: 09/26/21 Status: Ordered doxylamine 25 mg oral tablet 1 tablet = 25 mg, By Mouth, Daily at bedtime, # 30 tablet, 0 Refills, Maintenance, 02/11/22 19:10:00 EDT, [facility] #[id number], Partial fill upon patient request if the prescription is for a schedule II opioid drug., 167.64, cm, 02/11/22 14:03:... Start Date: 02/11/22 Status: Ordered letrozole 2.5 mg oral tablet 2 tablet = 5 mg, By Mouth, Daily, BEGIN ON 3RD DAY OF CYCLE, # 10 tablet, 3 Refills, Maintenance, 12/02/21 15:17:00 EDT, [facility] #[id number], Partial fill upon patient request if the prescription is for a schedule II opioid drug., 167.64, cm,... Start Date: 12/02/21 Stop Date: 12/22/21 Status: Ordered norethindrone 5 mg oral tablet See Instructions, TAKE 2 TABLETS BY MOUTH DAILY X3DAYS THEN 1 TABLET DAILY UNTIL BLEEDING STOPS, # 12 tablet, Refills 0, Instructions Replace Required Details, Route to Pharmacy Electronically, [facility] #[id number], 167.64, cm, 10/13/21 16:11:0... Start Date: 10/30/21 Status: Ordered Ovidrel 250 mcg/0.5 mL subcutaneous solution See Instructions, Take 1 Subcutaneous Injections Once per cycle when directed, # 1 each, 3 Refills,Maintenance, 12/02/21 15:20:00 EDT, Solution, [facility], Partial fill upon patient request if the prescription is for a schedule II o... Start Date: 12/02/21 Status: Ordered PNV Plus oral tablet 1 tablet, By Mouth, Daily, # 90 tablet, 3 Refills, Maintenance, 02/11/22 19:10:00 EDT, [facility] #[id number], Partial fill upon patient request if the [...] capsule, 1 Refills, Maintenance, 02/13/22 13:30:00 EDT, [facility] #[id number], Partial fill upon patient request if the prescription is for a schedule II opioid drug., 167.64, cm, 02/11/22 14:03:00 EDT,... Start Date: 02/13/22 Status: Ordered Vitamin B6 25 mg oral tablet 1 tablet = 25 mg, By Mouth, 3 times a day, # 90 tablet, 0 Refills, Maintenance, 02/11/22 19:10:00 EDT, [facility] #[id number], Partial fill upon patient request if the prescription is for a schedule II opioid drug., 167.64, cm, 02/11/22 14:03:00... Start Date: 02/11/22 Status: Ordered Problem List Condition Effective Dates Status Health Status Inform ant Anxiety(Confirmed) Active Eczema(Confirmed) Active History of ectopic (Confirmed) Active AMA (advanced maternal age) multigravida 35+(Confirmed) Active depression(Confirmed) Active Social History Social History Type Response Smoking Status Never (less than 100 in lifetime);Never; Exposure to Secondhand Smoke: No entered on: 02/11/22 Sex
--- OUTSIDE RECORDS SUMMARY | 2023-06-28 21:12 | XMS_ITS | Continuity of Care Document ---
Author Name Unknown Organization [facility] Address Unknown Care Team Providers Care Correctional Casework Specialist Name Role Phone Ricardo ALMANZAR, Josep Irizarry Primary Care Physician [place] [facility] [place]12[place] 08[place]19/21 [facility] Attending Physician: Nohelia Zheng MD Referring Physician: Sergei Mullen MD Allergies, Adverse Reactions, Alerts Substance Reaction Severity Status Latex Active Percocet 5/325 itch Active Medications doxycycline hyclate 100 mg oral capsule 1 capsule = 100 mg, By Mouth, 2 times a day, for 5 days, Start 2 days before HSG and continue for 5days total. You may take with food (breakfast and dinner) to minimize abdominal discomfort., # 10 capsule, 0 Refills, Acute 08/21/21 10:12:00 EST, 02... Start Date: 08/16/21 Stop Date: 08/21/21 Status: Ordered Vital Signs Most recent to oldest [Reference Range]: 1 Height 167.64 cm (08/12/21 1:52 PM)
--- OUTSIDE RECORDS SUMMARY | 2023-06-28 21:12 | XMS_ITS | Continuity of Care Document ---
Author Name Unknown Organization [facility] Address [address] [place] [id number]- Care Team Providers Care Nursing Home Administrator Name Role Phone Josep Silva MD Primary Care Physician Encounter [facility] Date(s): 02/12/22 - 03/14/22 [facility] [address] [place] [id number] Allergies, Adverse Reactions, Alerts Substance Reaction Severity Status Latex Active Medications Apri 0.15 mg-0.03 mg oral tablet 1 tablet, By Mouth, Daily, # 30 tablet, 1 Refills, Maintenance, 09/26/21 12:36:00 EDT, [facility] #[id number], Partial fill upon patient request if the prescription is for a schedule II opioid drug., 1 tablet By Mouth Daily, 167.64, cm, 08/12/21... Start Date: 09/26/21 Status: Ordered doxylamine 25 mg oral tablet 1 tablet = 25 mg, By Mouth, Daily at bedtime, # 30 tablet, 0 Refills, Maintenance, 02/11/22 19:10:00 EDT, [facility] #[id number], Partial fill upon patient request if the prescription is for a schedule II opioid drug., 167.64, cm, 02/11/22 14:03:... Start Date: 02/11/22 Status: Ordered letrozole 2.5 mg oral tablet 2 tablet = 5 mg, By Mouth, Daily, BEGIN ON 3RD DAY OF CYCLE, # 10 tablet, 3 Refills, Maintenance, 12/02/21 15:17:00 EDT, [facility] #[id number], Partial fill upon patient request if the prescription is for a schedule II opioid drug., 167.64, cm,... Start Date: 12/02/21 Stop Date: 12/22/21 Status: Ordered norethindrone 5 mg oral tablet See Instructions, TAKE 2 TABLETS BY MOUTH DAILY X3DAYS THEN 1 TABLET DAILY UNTIL BLEEDING STOPS, # 12 tablet, Refills 0, Instructions Replace Required Details, Route to Pharmacy Electronically, [facility] #[id number], 167.64, cm, 10/13/21 16:11:0... Start Date: 10/30/21 Status: Ordered Ovidrel 250 mcg/0.5 mL subcutaneous solution See Instructions, Take 1 Subcutaneous Injections Once per cycle when directed, # 1 each, 3 Refills,Maintenance, 12/02/21 15:20:00 EDT, Solution, [facility], Partial fill upon patient request if the prescription is for a schedule II o... Start Date: 12/02/21 Status: Ordered PNV Plus oral tablet 1 tablet, By Mouth, Daily, # 90 tablet, 3 Refills, Maintenance, 02/11/22 19:10:00 EDT, [facility] #[id number], Partial fill upon patient request if the [...] capsule, 1 Refills, Maintenance, 02/13/22 13:30:00 EDT, [facility] #[id number], Partial fill upon patient request if the prescription is for a schedule II opioid drug., 167.64, cm, 02/11/22 14:03:00 EDT,... Start Date: 02/13/22 Status: Ordered Vitamin B6 25 mg oral tablet 1 tablet = 25 mg, By Mouth, 3 times a day, # 90 tablet, 0 Refills, Maintenance, 02/11/22 19:10:00 EDT, [facility] #[id number], Partial fill upon patient request if the [...] Team Personnel Name: Josep Silva MD Address: [address] [place] [address] [place] [id number]
--- OUTSIDE RECORDS SUMMARY | 2023-06-28 21:12 | XMS_ITS | Continuity of Care Document ---
Author Name Unknown Organization [facility] Address Unknown Care Team Providers Care Sales Service Technician Name Role Phone Josep Silva MD Primary Care Physician [phone] Encounter [facility] [place] Date(s): 10/13/21 - 10/20/21 [facility] Attending Physician: Keiko Sawant MD Referring Physician: Nohelia Zheng MD Allergies, Adverse Reactions, Alerts Substance Reaction Severity Status Latex Active Medications Apri 0.15 mg-0.03 mg oral tablet 1 tablet, By Mouth, Daily, # 30 tablet, 1 Refills, Maintenance, 09/26/21 12:36:00 EDT, [facility] #[id number], Partial fill upon patient request if the prescription is for a schedule II opioid drug., 1 tablet By Mouth Daily, 167.64, cm, 08/12/21... Start Date: 09/26/21 Status: Ordered Vital Signs Most recent to oldest [Reference Range]: 1 Height 167.64 cm (10/13/21 4:00 PM) Weight 71.6 kg (10/13/21 4:00 PM) Pulse Rate [55-90 bpm] 69 bpm (10/13/21 4:00 PM) Body Mass Index [18.5-24.99] 25.48 *H* (10/13/21 4:00 PM) Blood Pressure [90-138/55-84 mm Hg] 111/ 71mm Hg (10/13/21 4:00 PM) Blood pressure sites Arm, right (10/13/21 4:00 PM) Weight Obtained Via Standing scale (10/13/21 4:00 PM)
--- OUTSIDE RECORDS SUMMARY | 2023-06-28 21:12 | XMS_ITS | Continuity of Care Document ---
Author Name Unknown Organization [facility] Address Unknown Care Team Providers Care Plant Wire Chief Name Role Phone Josep Silva MD Primary Care Physician Encounter [facility] [place] Date(s): 01/05/22 - 02/04/22 [facility] Rep[facility] Allergies, Adverse Reactions, Alerts Substance Reaction Severity Status Latex Active Medications Apri 0.15 mg-0.03 mg oral tablet 1 tablet, By Mouth, Daily, # 30 tablet, 1 Refills, Maintenance, 09/26/21 12:36:00 EDT, [facility] #[id number], Partial fill upon patient request if the prescription is for a schedule II opioid drug., 1 tablet By Mouth Daily, 167.64, cm, 08/12/21... Start Date: 09/26/21 Status: Ordered letrozole 2.5 mg oral tablet 2 tablet = 5 mg, By Mouth, Daily, BEGIN ON 3RD DAY OF CYCLE, # 10 tablet, 3 Refills, Maintenance, 12/02/21 15:17:00 EDT, [facility] #[id number], Partial fill upon patient request if the prescription is for a schedule II opioid drug., 167.64, cm,... Start Date: 12/02/21 Stop Date: 12/22/21 Status: Ordered norethindrone 5 mg oral tablet See Instructions, TAKE 2 TABLETS BY MOUTH DAILY X3DAYS THEN 1 TABLET DAILY UNTIL BLEEDING STOPS, # 12 tablet, Refills 0, Instructions Replace Required Details, Route to Pharmacy Electronically, [facility] #[id number], 167.64, cm, 10/13/21 16:11:0... Start Date: 10/30/21 Status: Ordered Ovidrel 250 mcg/0.5 mL subcutaneous solution See Instructions, Take 1 Subcutaneous Injections Once per cycle when directed, # 1 each, 3 Refills,Maintenance, 12/02/21 15:20:00 EDT, Solution, [facility], Partial fill upon [...] capsule, 2 Refills, Maintenance, 01/16/22 12:03:00 EDT, [facility] #[id number], Partial fill upon patient request if the prescription is for a schedule II opioid drug., 167.64, cm, 12/02/21 14:17:00 EDT,... Start Date: 01/16/22 Status: Ordered
--- OUTSIDE RECORDS SUMMARY | 2023-06-28 21:12 | XMS_ITS | Continuity of Care Document ---
Author Name Unknown Organization [facility] Address Unknown Care Team Providers Care Zipper Measurer Name Role Phone Josep Silva MD Primary Care Physician Encounter [facility] [place] Date(s): 10/13/21 - 11/12/21 [facility] Attending Physician: Mignon Lama Admitting Physician: Mignon Lama Referring Physician: Mignon Lama Allergies, Adverse Reactions, Alerts Substance Reaction Severity Status Latex Active Medications Apri 0.15 mg-0.03 mg oral tablet 1 tablet, By Mouth, Daily, # 30 tablet, 1 Refills, Maintenance, 09/26/21 12:36:00 EDT, [facility] #[id number], Partial fill upon patient request if the prescription is for a schedule II opioid drug., 1 tablet By Mouth Daily, 167.64, cm, 08/12/21... Start Date: 09/26/21 Status: Ordered norethindrone 5 mg oral tablet See Instructions, TAKE 2 TABLETS BY MOUTH DAILY X3DAYS THEN 1 TABLET DAILY UNTIL BLEEDING STOPS, # 12 tablet, Refills 0, Instructions Replace Required Details, Route to Pharmacy Electronically, [facility] #[id number], 167.64, cm, 10/13/21 16:11:0... Start Date: 10/30/21 Status: Ordered
--- OUTSIDE RECORDS SUMMARY | 2023-06-28 21:12 | XMS_ITS | Continuity of Care Document ---
Author Name Unknown Organization [facility] e Medicine Address Unknown Care Team Providers Care Crew Scheduler Name Role Phone Josep Silva MD Primary Care Physician [phone] Encounter [facility] [place] Date(s): 12/15/21 - 01/14/22 [facility] Reproductive Medicine Allergies, Adverse Reactions, Alerts Substance Reaction Severity Status Latex Active Medications Apri 0.15 mg-0.03 mg oral tablet 1 tablet, By Mouth, Daily, # 30 tablet, 1 Refills, Maintenance, 09/26/21 12:36:00 EDT, [email or web address] #[id number], Partial fill upon patient request if the prescription is for a schedule II opioid drug., 1 tablet By Mouth Daily, 167.64, cm, 08/12/21... Start Date: 09/26/21 Status: Ordered letrozole 2.5 mg oral tablet 2 tablet = 5 mg, By Mouth, Daily, BEGIN ON 3RD DAY OF CYCLE, # 10 tablet, 3 Refills, Maintenance, 12/02/21 15:17:00 EDT, [email or web address] #[id number], Partial fill upon patient request if the prescription is for a schedule II opioid drug., 167.64, cm,... Start Date: 12/02/21 Stop Date: 12/22/21 Status: Ordered norethindrone 5 mg oral tablet See Instructions, TAKE 2 TABLETS BY MOUTH DAILY X3DAYS THEN 1 TABLET DAILY UNTIL BLEEDING STOPS, # 12 tablet, Refills 0, Instructions Replace Required Details, Route to Pharmacy Electronically, [email or web address] #[id number], 167.64, cm, 10/13/21 16:11:0... Start Date: 10/30/21 Status: Ordered Ovidrel 250 mcg/0.5 mL subcutaneous solution See Instructions, Take 1 Subcutaneous Injections Once per cycle when directed, # 1 each, 3 Refills,Maintenance, 12/02/21 15:20:00 EDT, Solution, [facility], Partial fill upon patient [...] capsule, 5 Refills, Maintenance, 12/02/21 15:18:00 EDT, [facility] #[id number], Partial fill upon patient request if the prescription is for a schedule II opioid drug., 167.... Start Date: 12/02/21 Status: Ordered
--- OUTSIDE RECORDS SUMMARY | 2023-06-28 21:12 | XMS_ITS | Continuity of Care Document ---
Author Name Unknown Organization [facility] Address Unknown Care Team Providers Care Core Winding Operator Name Role Phone Josep Silva MD Primary Care Physician En[place] [facility] [place] Date(s): 09/15/21 - 10/15/21 [facility] Allergies, Adverse Reactions, Alerts Substance Reaction Severity Status Latex Active Medications Apri 0.15 mg-0.03 mg oral tablet 1 tablet, By Mouth, Daily, # 30 tablet, 1 Refills, Maintenance, 09/26/21 12:36:00 EDT, [facility] #[id number], Partial fill upon patient request if the prescription is for a schedule II opioid drug., 1 tablet By Mouth Daily, 167.64, cm, 08/12/21... Start Date: 09/26/21 Status: Ordered
--- OUTSIDE RECORDS SUMMARY | 2023-06-28 21:12 | XMS_ITS | Continuity of Care Document ---
Author Name Unknown Organization [facility] Address [address] [address]- Care Team Providers Care Die Out Worker Name Role Phone Josep Silva MD Primary Care Physician [phone] Encounter [facility] [place] Date(s): 06/29/22 - 10/21/22 [facility] [address] [address]- Attending Physician: Ricky Mcclellan MD Admitting Physician: Ricky Mcclellan MD Referring Physician: Mellissa MAY, Jewell Garcia Head Allergies, Adverse Reactions, Alerts Substance Reaction Severity Status Latex Active Immunizations Given and Recorded Vaccine Date Status Refusal Reason tetanus/diphtheria/pertussis, acel(Tdap) 06/29/22 Recorded Medications aspirin 81 mg oral capsule 1 capsule = 81 mg, By Mouth, Daily, # 30 capsule, 0 Refills, Maintenance, 05/07/22 9:18:00 EDT, Capsule, [facility] #[id number], Partial fill upon patient request if the prescription is for a schedule II opioid drug., 167.64, cm, 05/07/22 8:53:00... Start Date: 05/07/22 Status: Ordered doxylamine 25 mg oral tablet 1 tablet = 25 mg, By Mouth, Daily at bedtime, # 30 tablet, 0 Refills, Maintenance, 02/11/22 19:10:00 EDT, [facility] #[id number], Partial fill upon patient request if the prescription is for a schedule II opioid drug., 167.64, cm, 02/11/22 14:03:... Start Date: 02/11/22 Status: Ordered Ferate 256 mg (28 mg elemental iron) oral tablet 1 tablet = 256 mg, By Mouth, Daily, # 100 tablet, 1 Refills, Maintenance, 06/30/22 19:27:00 EST, Tablet, [facility] #[id number], Partial fill upon patient request if the prescription is for a schedule II opioid drug., 167.64, cm, 06/29/22 13:33:0... Start Date: 06/30/22 Status: Ordered PNV Plus oral tablet 1 tablet, By Mouth, Daily, # 90 tablet, 3 Refills, Maintenance, 02/11/22 19:10:00 EDT, [facility] #[id number], Partial fill upon patient request if the prescription is for a schedule II opioid drug., 1 tablet By Mouth Daily, 167.64, cm, 02/11/22... Start Date: 02/11/22 Status: Ordered sertraline 50 mg oral tablet 1 tablet = 50 mg, By Mouth, Daily, Take half of one tablet nightly for one week, then increase to full tablet nightly, # 30 tablet, 2 Refills, Maintenance, 07/15/22 20:11:00 EST, [facility]#[id number], Partial fill upon patient request if the pr... 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 Confirmed Active History of Confirmed Active History of depression Confirmed Active History of ectopic Confirmed Active AMA (advanced maternal age) multigravida 35+ Confirmed Active Obese class I Confirmed Active depression Confirmed Active Confirmed Active Request for sterilization Confirmed Active Uterine size date discrepancy Confirmed Active Social History Social History Type Response Smoking Status Never (less than 100 in lifetime);Never; Exposure to Secondhand Smoke: No entered on: 02/11/22 Sex Patient Care team information Care Team Personnel Name: Josep Silva MD Position: Reference Physician Member Role: PCP Address: Address: [address] [place] [address] Drive [address] [place] [address]- Care Team Related Persons Name: AMANDA CHRISTIANSEN Address: [address] [place] [address] Name: ANTOINETTE PORTILLO Address: home [address] [place] [address]
--- OUTSIDE RECORDS SUMMARY | 2023-06-28 21:12 | XMS_ITS | Continuity of Care Document ---
Author Name Unknown Organization [facility] Address [address] [place] [address]- Care Team Providers Care General Cargo Clerk Name Role Phone Josep Silva MD Primary Care Physician [phone] Encounter [facility] [place] Date(s): 03/26/22 - 04/25/22 [facility]/[address] [address]- [place] Allergies, Adverse Reactions, Alerts Substance Reaction Severity Status Latex Active Medications Apri 0.15 mg-0.03 mg oral tablet 1 tablet, By Mouth, Daily, # 30 tablet, 1 Refills, Maintenance, 09/26/21 12:36:00 EDT, [facility] #[id number], Partial fill upon patient request if the prescription is for a schedule II opioid drug., 1 tablet By Mouth Daily, 167.64, cm, 08/12/21... Start Date: 09/26/21 Status: Ordered aspirin 81 mg oral capsule 1 capsule = 81 mg, By Mouth, Every 4 hours, 0 Refills, Maintenance, 04/07/22 14:43:00 EDT, Partial fill upon patient request if the prescription is for a schedule II opioid drug. Start Date: 04/07/22 Status: Ordered doxylamine 25 mg oral tablet 1 tablet = 25 mg, By Mouth, Daily at bedtime, # 30 tablet, 0 Refills, Maintenance, 02/11/22 19:10:00 EDT, [facility] #[id number], Partial fill upon patient request if the prescription is for a schedule II opioid drug., 167.64, cm, 02/11/22 14:03:... Start Date: 02/11/22 Status: Ordered letrozole 2.5 mg oral tablet 2 tablet = 5 mg, By Mouth, Daily, BEGIN ON 3RD DAY OF CYCLE, # 10 tablet, 3 Refills, Maintenance, 12/02/21 15:17:00 EDT, [facility] #[id number], Partial fill upon patient request if the prescription is for a schedule II opioid drug., 167.64, cm,... Start Date: 12/02/21 Stop Date: 12/22/21 Status: Ordered norethindrone 5 mg oral tablet See Instructions, TAKE 2 TABLETS BY MOUTH DAILY X3DAYS THEN 1 TABLET DAILY UNTIL BLEEDING STOPS, # 12 tablet, Refills 0, Instructions Replace Required Details, Route to Pharmacy Electronically, [facility] #[id number], 167.64, cm, 10/13/21 16:11:0... Start Date: 10/30/21 Status: Ordered Ovidrel 250 mcg/0.5 mL subcutaneous solution See Instructions, Take 1 Subcutaneous Injections Once per cycle when directed, # 1 each, 3 Refills,Maintenance, 12/02/21 15:20:00 EDT, Solution, [facility], Partial fill upon patient request if the prescription is for a schedule II o... Start Date: 12/02/21 Status: Ordered PNV Plus oral tablet 1 tablet, By Mouth, Daily, # 90 tablet, 3 Refills, Maintenance, 02/11/22 19:10:00 EDT, [facility] #[id number], Partial fill upon patient request if the [...] 3 times a day, # 180 capsule, 0 Refills, Maintenance, 03/26/22 14:50:00 EDT, [facility] #[id number], Partial fill upon patient request if the prescription is for a schedule II opioid drug., 167.64, cm, 03/09/22 10:01:00 EDT,... Start Date: 03/26/22 Status: Ordered Vitamin B6 25 mg oral tablet 1 tablet = 25 mg, By Mouth, 3 times a day, # 90 tablet, 0 Refills, Maintenance, 02/11/22 19:10:00 EDT, [facility] #[id number], Partial fill upon patient request if the prescription is for a schedule II opioid drug., 167.64, cm, 02/11/22 14:03:00... 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 Confirmed Active History of Confirmed Active History of depression Confirmed Active History of ectopic Confirmed Active AMA (advanced maternal age) multigravida 35+ Confirmed Active Nausea and vomiting in Confirmed Active depression Confirmed Active Confirmed Active Request for sterilization Confirmed Active Social History Social History Type Response Smoking Status Never (less than 100 in lifetime);Never; Exposure to Secondhand Smoke: No entered on: 02/11/22 Sex Patient Care team information Personnel Name: Josep Silva MD Address: Address: [address] [place] [address] Drive [address] [place] [id number]
--- OUTSIDE RECORDS SUMMARY | 2023-06-28 21:12 | XMS_ITS | Continuity of Care Document ---
Author Name Unknown Organization [facility] Address Unknown Care Team Providers Care Staff Writer Name Role Phone Josep Silva MD Primary Care Physician [place] [facility] [id number] Date(s): 12/14/21 - 12/21/21 [facility] Rep[facility] Attending Physician: Keiko Sawant MD Referring Physician: Josep Silva MD Allergies, Adverse Reactions, Alerts Substance Reaction Severity Status Latex Active Medications Apri 0.15 mg-0.03 mg oral tablet 1 tablet, By Mouth, Daily, # 30 tablet, 1 Refills, Maintenance, 09/26/21 12:36:00 EDT, [facility] #[id number], Partial fill upon patient request if the prescription is for a schedule II opioid drug., 1 tablet By Mouth Daily, 167.64, cm, 08/12/21... Start Date: 09/26/21 Status: Ordered letrozole 2.5 mg oral tablet 2 tablet = 5 mg, By Mouth, Daily, BEGIN ON 3RD DAY OF CYCLE, # 10 tablet, 3 Refills, Maintenance, 12/02/21 15:17:00 EDT, [facility] #[id number], Partial fill upon patient request if the prescription is for a schedule II opioid drug., 167.64, cm,... Start Date: 12/02/21 Stop Date: 12/22/21 Status: Ordered norethindrone 5 mg oral tablet See Instructions, TAKE 2 TABLETS BY MOUTH DAILY X3DAYS THEN 1 TABLET DAILY UNTIL BLEEDING STOPS, # 12 tablet, Refills 0, Instructions Replace Required Details, Route to Pharmacy Electronically, [facility] #[id number], 167.64, cm, 10/13/21 16:11:0... Start Date: 10/30/21 [...] capsule, 5 Refills, Maintenance, 12/02/21 15:18:00 EDT, [facility] #[id number], Partial fill upon patient request if the prescription is for a schedule II opioid drug., 167.... Start Date: 12/02/21 Status: Ordered
--- OUTSIDE RECORDS SUMMARY | 2023-06-28 21:12 | XMS_ITS | Continuity of Care Document ---
Author Name Unknown Organization [facility] Address [address] [facility]. [address] [place] [address]- Care Team Providers Care Front Elevator Operator Name Role Phone Josep Silva MD Primary Care Physician Encounter [facility] Date(s): 03/09/22 - 04/08/22 [facility] [address] [facility] [address]- Attending Physician: Mignon Lama Admitting Physician: Mignon Lama Referring Physician: trMignon Allergies, Adverse Reactions, Alerts Substance Reaction Severity Status Latex Active Medications Apri 0.15 mg-0.03 mg oral tablet 1 tablet, By Mouth, Daily, # 30 tablet, 1 Refills, Maintenance, 09/26/21 12:36:00 EDT, [facility] #[id number], Partial fill upon patient request if the [...] tablet, 0 Refills, Maintenance, 02/11/22 19:10:00 EDT, [facility] #[id number], Partial fill upon patient request if the prescription is for a schedule II opioid drug., 167.64, cm, 02/11/22 14:03:... Start Date: 02/11/22 Status: Ordered letrozole 2.5 mg oral tablet 2 tablet = 5 mg, By Mouth, Daily, BEGIN ON 3RD DAY OF CYCLE, # 10 tablet, 3 Refills, Maintenance, 12/02/21 15:17:00 EDT, [facility] #[id number], Partial fill upon patient request if the prescription is for a schedule II opioid drug., 167.64, cm,... Start Date: 12/02/21 Stop Date: 12/22/21 Status: Ordered norethindrone 5 mg oral tablet See Instructions, TAKE 2 TABLETS BY MOUTH DAILY X3DAYS THEN 1 TABLET DAILY UNTIL BLEEDING STOPS, # 12 tablet, Refills 0, Instructions Replace Required Details, Route to Pharmacy Electronically, [facility] #[id number], 167.64, cm, 10/13/21 16:11:0... Start Date: 10/30/21 Status: Ordered Ovidrel 250 mcg/0.5 mL subcutaneous solution See Instructions, Take 1 Subcutaneous Injections Once per cycle when directed, # 1 each, 3 Refills,Maintenance, 12/02/21 15:20:00 EDT, Solution, [facility], Partial fill upon patient request if the prescription is for a schedule II o... Start Date: 12/02/21 Status: Ordered PNV Plus oral tablet 1 tablet, By Mouth, Daily, # 90 tablet, 3 Refills, Maintenance, 02/11/22 19:10:00 EDT, [facility] #[id number], Partial fill upon patient request if the [...] capsule, 0 Refills, Maintenance, 03/26/22 14:50:00 EDT, [facility] #[id number], Partial fill upon patient request if the prescription is for a schedule II opioid drug., 167.64, cm, 03/09/22 10:01:00 EDT,... Start Date: 03/26/22 Status: Ordered Vitamin B6 25 mg oral tablet 1 tablet = 25 mg, By Mouth, 3 times a day, # 90 tablet, 0 Refills, Maintenance, 02/11/22 19:10:00 EDT, [facility] #[id number], Partial fill upon patient request if the [...] Personnel Name: Josep Silva MD Address: Address: [address] [place] [address] Drive [address] [place] [id number]
--- OUTSIDE RECORDS SUMMARY | 2023-06-28 21:12 | XMS_ITS | Continuity of Care Document ---
Author Name Unknown Organization [facility] Address [address] [address]- Care Team Providers Care Yacht Builder Name Role Phone Josep Silva MD Primary Care Physician [place] [facility] [place] 07/[place]/22 [facility] [address] [place] [id number] Allergies, Adverse Reactions, Alerts Substance Reaction Severity Status Latex Active Immunizations Given and Recorded Vaccine Date Status Refusal Reason tetanus/diphtheria/pertussis, acel(Tdap) 06/29/22 Recorded Medications aspirin 81 mg oral capsule 1 capsule = 81 mg, By Mouth, Daily, # 30 capsule, 0 Refills, Maintenance, 05/07/22 9:18:00 EDT, Capsule, [facility] #[id number], Partial fill upon patient request if the prescription is for a schedule II opioid drug., 167.64, cm, 05/07/22 8:53:00... Start Date: 05/07/22 Status: Ordered doxylamine 25 mg oral tablet 1 tablet = 25 mg, By Mouth, Daily at bedtime, # 30 tablet, 0 Refills, Maintenance, 02/11/22 19:10:00 EDT, [facility] #[id number], Partial fill upon patient request if the prescription is for a schedule II opioid drug., 167.64, cm, 02/11/22 14:03:... Start Date: 02/11/22 Status: Ordered Ferate 256 mg (28 mg elemental iron) oral tablet 1 tablet = 256 mg, By Mouth, Daily, # 100 tablet, 1 Refills, Maintenance, 06/30/22 19:27:00 EST, Tablet, [facility] #[id number], Partial fill upon patient request if the prescription is for a schedule II opioid drug., 167.64, cm, 06/29/22 13:33:0... Start Date: 06/30/22 Status: Ordered PNV Plus oral tablet 1 tablet, By Mouth, Daily, # 90 tablet, 3 Refills, Maintenance, 02/11/22 19:10:00 EDT, [facility] #[id number], Partial fill upon patient request if the [...] 30 tablet, 2 Refills, Maintenance, 07/15/22 20:11:00 [id number], Partial fill upon patient request if the [...] Reference Physician Member Role: PCP Address: Address: [address] [place] [address] Drive [address] [place] [address]- Care Team Related Persons Name: AMANDA CHRISTIANSEN Address: [address] [place] [address] Name: ANTOINETTE PORTILLO Address: home [address] [place] [address]
--- OUTSIDE RECORDS SUMMARY | 2023-06-28 21:13 | XMS_ITS | Continuity of Care Document ---
Author Name Unknown Organization [facility] Address Unknown Care Team Providers Care Compliance Attorney Name Role Phone Josep Silva MD Primary Care Physician [phone] [place] [facility] [place] 09/11/21 [facility] Allergies, Adverse Reactions, Alerts Substance Reaction Severity Status Latex Active Percocet itch Active
--- OUTSIDE RECORDS SUMMARY | 2023-06-28 21:13 | XMS_ITS | Continuity of Care Document ---
Author Name Unknown Organization [facility] Address Unknown Care Team Providers Care School Psychologist Assistant Name Role Phone Josep Silva MD Primary Care Physician Encounter [facility] Date(s): 12/29/21 - 01/28/22 [facility] Allergies, Adverse Reactions, Alerts Substance Reaction Severity Status Latex Active Medications Apri 0.15 mg-0.03 mg oral tablet 1 tablet, By Mouth, Daily, # 30 tablet, 1 Refills, Maintenance, 09/26/21 12:36:00 EDT, [facility] #[id number], Partial fill upon patient request if the prescription is for a schedule II opioid drug., 1 tablet By Mouth Daily, 167.64, cm, 08/12/21... Start Date: 09/26/21 Status: Ordered letrozole 2.5 mg oral tablet 2 tablet = 5 mg, By Mouth, Daily, BEGIN ON 3RD DAY OF CYCLE, # 10 tablet, 3 Refills, Maintenance, 12/02/21 15:17:00 EDT, [facility] #[id number], Partial fill upon patient request if the prescription is for a schedule II opioid drug., 167.64, cm,... Start Date: 12/02/21 Stop Date: 12/22/21 Status: Ordered norethindrone 5 mg oral tablet See Instructions, TAKE 2 TABLETS BY MOUTH DAILY X3DAYS THEN 1 TABLET DAILY UNTIL BLEEDING STOPS, # 12 tablet, Refills 0, Instructions Replace Required Details, Route to Pharmacy Electronically, [facility] #[id number], 167.64, cm, 10/13/21 16:11:0... Start Date: 10/30/21 Status: Ordered Ovidrel 250 mcg/0.5 mL subcutaneous solution See Instructions, Take 1 Subcutaneous Injections Once per cycle when directed, # 1 each, 3 Refills,Maintenance, 12/02/21 15:20:00 EDT, Solution, [facility], Partial fill upon patient request if the prescription is for a schedule II o... Start Date: 12/02/21 Status: Ordered Paxlovid 150 mg-100 mg (150 mg-100 mg Dose) oral tablet See Instructions, follow instructions on package, # 30 tablet, 0 Refills, Acute 01/30/22 14:25:00 EDT, 01/16/22 14:09:00 EDT, [facility] #[id number], Partial fill upon patient request if the prescription is for a schedule II opioid drug., 167.64,... Start Date: 01/16/22 Stop Date: 01/30/22 Status: Ordered Multivitamins By Mouth, Daily, 0 Refills, Maintenance, 12/02/21 14:20:00 EDT, Partial fill upon patient request if the prescription is for a schedule II opioid drug. Start Date: 12/02/21 Status: Ordered Prometrium 200 mg oral capsule = 400 mg, Vaginally, 2 times a day, # 120 capsule, 2 Refills, Maintenance, 01/16/22 12:03:00 EDT, [facility] #[id number], Partial fill upon patient request if the prescription is for a schedule II opioid drug., 167.64, cm, 12/02/21 14:17:00 EDT,... Start Date: 01/16/22 Status: Ordered
--- OUTSIDE RECORDS SUMMARY | 2023-06-28 21:13 | XMS_ITS | Continuity of Care Document ---
Author Name Unknown Organization [facility] Address [address] [address]- Care Team Providers Care Bone Plant Supervisor Name Role Phone Josep Silva MD Primary Care Physician [phone] Encounter [facility] Date(s): 07/21/22 - 08/20/22 [facility] [address] [place] [id number] Allergies, Adverse Reactions, Alerts Substance Reaction Severity Status Latex Active Immunizations Given and Recorded Vaccine Date Status Refusal Reason tetanus/diphtheria/pertussis, acel(Tdap) 06/29/22 Recorded Medications aspirin 81 mg oral capsule 1 capsule = 81 mg, By Mouth, Daily, # 30 capsule, 0 Refills, Maintenance, 05/07/22 9:18:00 EDT, Capsule, [facility] #[id number], Partial fill upon patient request if the prescription is for a schedule II opioid drug., 167.64, cm, 05/07/22 8:53:00... Start Date: 05/07/22 Status: Ordered doxylamine 25 mg oral tablet 1 tablet = 25 mg, By Mouth, Daily at bedtime, # 30 tablet, 0 Refills, Maintenance, 02/11/22 19:10:00 EDT, [facility] #[id number], Partial fill upon patient request if the prescription is for a schedule II opioid drug., 167.64, cm, 02/11/22 14:03:... Start Date: 02/11/22 Status: Ordered Ferate 256 mg (28 mg elemental iron) oral tablet 1 tablet = 256 mg, By Mouth, Daily, # 100 tablet, 1 Refills, Maintenance, 06/30/22 19:27:00 EST, Tablet, [facility] #[id number], Partial fill upon patient request if the prescription is for a schedule II opioid drug., 167.64, cm, 06/29/22 13:33:0... Start Date: 06/30/22 Status: Ordered PNV Plus oral tablet 1 tablet, By Mouth, Daily, # 90 tablet, 3 Refills, Maintenance, 02/11/22 19:10:00 EDT, [facility] #[id number], Partial fill upon patient request if the [...] tablet, 2 Refills, Maintenance, 07/15/22 20:11:00 EST, [facility][id number], Partial fill upon patient request if the [...] Reference Physician Member Role: PCP Address: Address: [address] [place] [address] Drive [address] [place] [address]- Care Team Related Persons Name: CHRISTIANSENAMANDA Address: [address] [place] [address] Name: ANTOINETTE PORTILLO Address: home [address] [place] [address]
--- OUTSIDE RECORDS SUMMARY | 2023-06-28 21:13 | XMS_ITS | Continuity of Care Document ---
Author Name Unknown Organization [facility] Address Unknown Care Team Providers Care Client Technical Professional Name Role Phone Josep Silva MD Primary Care Physician [phone] Encounter [facility] Date(s): 10/24/21 - 11/23/21 [facility] Allergies, Adverse Reactions, Alerts Substance Reaction Severity Status Latex Active Medications Apri 0.15 mg-0.03 mg oral tablet 1 tablet, By Mouth, Daily, # 30 tablet, 1 Refills, Maintenance, 09/26/21 12:36:00 EDT, [facility] #[id number], Partial fill upon patient request if the prescription is for a schedule II opioid drug., 1 tablet By Mouth Daily, 167.64, cm, 08/12/21... Start Date: 09/26/21 Status: Ordered norethindrone 5 mg oral tablet See Instructions, TAKE 2 TABLETS BY MOUTH DAILY X3DAYS THEN 1 TABLET DAILY UNTIL BLEEDING STOPS, # 12 tablet, Refills 0, Instructions Replace Required Details, Route to Pharmacy Electronically, [facility] #[id number], 167.64, cm, 10/13/21 16:11:0... Start Date: 10/30/21 Status: Ordered
--- OUTSIDE RECORDS SUMMARY | 2023-06-28 21:13 | XMS_ITS | Continuity of Care Document ---
Author Name Unknown Organization [facility] Address Unknown Care Team Providers Care De Icer Name Role Phone Josep Silva MD Primary Care Physician Encounter [facility] Date(s): 08/21/21 - 09/20/21 [facility] Attending Physician: AdmMignon nunez Admitting Physician: Admtr, Mignon Referring Physician: Admtr, Ar8 Allergies, Adverse Reactions, Alerts Substance Reaction Severity Status Latex Active Percocet 5/325 itch Active
--- OUTSIDE RECORDS SUMMARY | 2023-06-28 21:13 | XMS_ITS | Continuity of Care Document ---
Author Name Unknown Organization [facility] Address Unknown Care Team Providers Care Head Men'S Tennis Coach Name Role Phone Josep Silva MD Primary Care Physician [phone] Encounter [facility] [id number] Date(s): 08/21/21 - 08/28/21 [facility] Attending Physician: Marycruz Martin MD Referring Physician: Nohelia Zheng MD Allergies, Adverse Reactions, Alerts Substance Reaction Severity Status Latex Active Percocet 5/325 itch Active
--- OUTSIDE RECORDS SUMMARY | 2023-06-28 21:13 | XMS_ITS | Continuity of Care Document ---
Author Name Unknown Organization [facility] Address Unknown Care Team Providers Care Vice President Of Software Engineering Name Role Phone Josep Silva MD Primary Care Physician [phone] Encounter [facility] [place] Date(s): 01/14/22 - 02/13/22 [facility] Allergies, Adverse Reactions, Alerts Substance Reaction Severity Status Latex Active Medications Apri 0.15 mg-0.03 mg oral tablet 1 tablet, By Mouth, Daily, # 30 tablet, 1 Refills, Maintenance, 09/26/21 12:36:00 EDT, [facility] #[id number], Partial fill upon patient request if the prescription is for a schedule II opioid drug., 1 tablet By Mouth Daily, 167.64, cm, 08/12/21... Start Date: 09/26/21 Status: Ordered doxylamine 25 mg oral tablet 1 tablet = 25 mg, By Mouth, Daily at bedtime, # 30 tablet, 0 Refills, Maintenance, 02/11/22 19:10:00 EDT, [facility] #[id number], Partial fill upon patient request if the prescription is for a schedule II opioid drug., 167.64, cm, 02/11/22 14:03:... Start Date: 02/11/22 Status: Ordered letrozole 2.5 mg oral tablet 2 tablet = 5 mg, By Mouth, Daily, BEGIN ON 3RD DAY OF CYCLE, # 10 tablet, 3 Refills, Maintenance, 12/02/21 15:17:00 EDT, [facility] #[id number], Partial fill upon patient request if the prescription is for a schedule II opioid drug., 167.64, cm,... Start Date: 12/02/21 Stop Date: 12/22/21 Status: Ordered norethindrone 5 mg oral tablet See Instructions, TAKE 2 TABLETS BY MOUTH DAILY X3DAYS THEN 1 TABLET DAILY UNTIL BLEEDING STOPS, # 12 tablet, Refills 0, Instructions Replace Required Details, Route to Pharmacy Electronically, [facility] #[id number], 167.64, cm, 10/13/21 16:11:0... Start Date: 10/30/21 Status: Ordered Ovidrel 250 mcg/0.5 mL subcutaneous solution See Instructions, Take 1 Subcutaneous Injections Once per cycle when directed, # 1 each, 3 Refills,Maintenance, 12/02/21 15:20:00 EDT, Solution, [facility], Partial fill upon patient request if the prescription is for a schedule II o... Start Date: 12/02/21 Status: Ordered PNV Plus oral tablet 1 tablet, By Mouth, Daily, # 90 tablet, 3 Refills, Maintenance, 02/11/22 19:10:00 EDT, [facility] #[id number], Partial fill upon patient request if the [...] capsule, 1 Refills, Maintenance, 02/13/22 13:30:00 EDT, [facility] #[id number], Partial fill upon patient request if the prescription is for a schedule II opioid drug., 167.64, cm, 02/11/22 14:03:00 EDT,... Start Date: 02/13/22 Status: Ordered Vitamin B6 25 mg oral tablet 1 tablet = 25 mg, By Mouth, 3 times a day, # 90 tablet, 0 Refills, Maintenance, 02/11/22 19:10:00 EDT, [facility] #[id number], Partial fill upon patient request if the [...]
--- OUTSIDE RECORDS SUMMARY | 2023-06-28 21:13 | XMS_ITS | Continuity of Care Document ---
Author Name Unknown Organization [facility] Address [facility] [address] [address]- Care Team Providers Care Life Skills Educator Name Role Phone Josep Silva MD Primary Care Physician [phone] Encounter [facility] Date(s): 03/09/22 - 03/16/22 [facility] [address] [address]- Attending Physician: Casper Newell MD Referring Physician: Josep Silva MD Allergies, Adverse Reactions, Alerts Substance Reaction Severity Status Latex Active Medications Apri 0.15 mg-0.03 mg oral tablet 1 tablet, By Mouth, Daily, # 30 tablet, 1 Refills, Maintenance, 09/26/21 12:36:00 EDT, [facility] #[id number], Partial fill upon patient request if the prescription is for a schedule II opioid drug., 1 tablet By Mouth Daily, 167.64, cm, 08/12/21... Start Date: 09/26/21 Status: Ordered doxylamine 25 mg oral tablet 1 tablet = 25 mg, By Mouth, Daily at bedtime, # 30 tablet, 0 Refills, Maintenance, 02/11/22 19:10:00 EDT, [facility] #[id number], Partial fill upon patient request if the prescription is for a schedule II opioid drug., 167.64, cm, 02/11/22 14:03:... Start Date: 02/11/22 Status: Ordered letrozole 2.5 mg oral tablet 2 tablet = 5 mg, By Mouth, Daily, BEGIN ON 3RD DAY OF CYCLE, # 10 tablet, 3 Refills, Maintenance, 12/02/21 15:17:00 EDT, [facility] #[id number], Partial fill upon patient request if the prescription is for a schedule II opioid drug., 167.64, cm,... Start Date: 12/02/21 Stop Date: 12/22/21 Status: Ordered norethindrone 5 mg oral tablet See Instructions, TAKE 2 TABLETS BY MOUTH DAILY X3DAYS THEN 1 TABLET DAILY UNTIL BLEEDING STOPS, # 12 tablet, Refills 0, Instructions Replace Required Details, Route to Pharmacy Electronically, [facility] #[id number], 167.64, cm, 10/13/21 16:11:0... Start Date: 10/30/21 Status: Ordered Ovidrel 250 mcg/0.5 mL subcutaneous solution See Instructions, Take 1 Subcutaneous Injections Once per cycle when directed, # 1 each, 3 Refills,Maintenance, 12/02/21 15:20:00 EDT, Solution, [facility], Partial fill upon patient request if the prescription is for a schedule II o... Start Date: 12/02/21 Status: Ordered PNV Plus oral tablet 1 tablet, By Mouth, Daily, # 90 tablet, 3 Refills, Maintenance, 02/11/22 19:10:00 EDT, [facility] #[id number], Partial fill upon patient request if the [...] capsule, 1 Refills, Maintenance, 02/13/22 13:30:00 EDT, [facility] #[id number], Partial fill upon patient request if the prescription is for a schedule II opioid drug., 167.64, cm, 02/11/22 14:03:00 EDT,... Start Date: 02/13/22 Status: Ordered Vitamin B6 25 mg oral tablet 1 tablet = 25 mg, By Mouth, 3 times a day, # 90 tablet, 0 Refills, Maintenance, 02/11/22 19:10:00 EDT, [facility] #[id number], Partial fill upon patient request if the [...] Active (Confirmed) Active Request for sterilization(Confirmed) Active Vital Signs Most recent to oldest [Reference Range]: 1 Height 167.64 cm (03/09/22 10:01 AM) Weight 77.0 kg (03/09/22 10:01 AM) Body Mass Index [18.5-24.99] 27.4 *H* (03/09/22 10:01 AM) Blood Pressure [90-138/55-84 mm Hg] 104/ 68mm Hg (03/09/22 10:01 AM) Blood pressure sites Arm, left (03/09/22 10:01 AM) Weight Obtained Via Standing scale (03/09/22 10:01 AM) Social History Social History Type Response Smoking Status Never (less than 100 in lifetime);Never; Exposure to Secondhand Smoke: No entered on: 02/11/22 Sex Care Team Personnel Name: Josep Silva MD Address: [address] [place] [address] [place] [id number]
--- OUTSIDE RECORDS SUMMARY | 2023-06-28 21:13 | XMS_ITS | Continuity of Care Document ---
Author Name Unknown Organization [facility] Address [address] [facility], [address] [place] [address]- Care Team Providers Care Traffic Workforce Representative Name Role Phone Josep Silva MD Primary Care Physician [phone] Encounter [facility] [place] Date(s): 05/07/22 - 05/14/22 [facility] [address], [address] [place] [address]- Attending Physician: Sakina Wilson MD Referring Physician: Omer Goodwin CNM Allergies, Adverse Reactions, Alerts Substance Reaction Severity Status Latex Active Medications aspirin 81 mg oral capsule 1 capsule = 81 mg, By Mouth, Daily, # 30 capsule, 0 Refills, Maintenance, 05/07/22 9:18:00 EDT, Capsule, [facility] #[id number], Partial fill upon patient request if the prescription is for a schedule II opioid drug., 167.64, cm, 05/07/22 8:53:00... Start Date: 05/07/22 Status: Ordered doxylamine 25 mg oral tablet 1 tablet = 25 mg, By Mouth, Daily at bedtime, # 30 tablet, 0 Refills, Maintenance, 02/11/22 19:10:00 EDT, [facility] #[id number], Partial fill upon patient request if the prescription is for a schedule II opioid drug., 167.64, cm, 02/11/22 14:03:... Start Date: 02/11/22 Status: Ordered PNV Plus oral tablet 1 tablet, By Mouth, Daily, # 90 tablet, 3 Refills, Maintenance, 02/11/22 19:10:00 EDT, [facility] #[id number], Partial fill upon patient request if the prescription is for a schedule II opioid drug., 1 tablet By Mouth Daily, 167.64, cm, 02/11/22... Start Date: 02/11/22 Status: Ordered Problem List [...] Personnel Name: Josep Silva MD Address: Address: [address] [place] [id number]
--- OUTSIDE RECORDS SUMMARY | 2023-06-28 21:13 | XMS_ITS | Continuity of Care Document ---
Author Name Unknown [facility] Address [address] [address]- Care Team Providers Care Powder Line Repairer Name Role Phone Josep Silva MD Primary Care Physician Encounter [facility] [place] Date(s): 02/09/22 - 03/11/22 [facility] [address] [address] Allergies, Adverse Reactions, Alerts Substance Reaction Severity Status Latex Active Medications Apri 0.15 mg-0.03 mg oral tablet 1 tablet, By Mouth, Daily, # 30 tablet, 1 Refills, Maintenance, 09/26/21 12:36:00 EDT, [facility] #[id number], Partial fill upon patient request if the prescription is for a schedule II opioid drug., 1 tablet By Mouth Daily, 167.64, cm, 08/12/21... Start Date: 09/26/21 Status: Ordered doxylamine 25 mg oral tablet 1 tablet = 25 mg, By Mouth, Daily at bedtime, # 30 tablet, 0 Refills, Maintenance, 02/11/22 19:10:00 EDT, [facility] #[id number], Partial fill upon patient request if the prescription is for a schedule II opioid drug., 167.64, cm, 02/11/22 14:03:... Start Date: 02/11/22 Status: Ordered letrozole 2.5 mg oral tablet 2 tablet = 5 mg, By Mouth, Daily, BEGIN ON 3RD DAY OF CYCLE, # 10 tablet, 3 Refills, Maintenance, 12/02/21 15:17:00 EDT, [facility] #[id number], Partial fill upon patient request if the prescription is for a schedule II opioid drug., 167.64, cm,... Start Date: 12/02/21 Stop Date: 12/22/21 Status: Ordered norethindrone 5 mg oral tablet See Instructions, TAKE 2 TABLETS BY MOUTH DAILY X3DAYS THEN 1 TABLET DAILY UNTIL BLEEDING STOPS, # 12 tablet, Refills 0, Instructions Replace Required Details, Route to Pharmacy Electronically, [facility] #[id number], 167.64, cm, 10/13/21 16:11:0... Start Date: 10/30/21 Status: Ordered Ovidrel 250 mcg/0.5 mL subcutaneous solution See Instructions, Take 1 Subcutaneous Injections Once per cycle when directed, # 1 each, 3 Refills,Maintenance, 12/02/21 15:20:00 EDT, Solution, [facility], Partial fill upon patient request if the prescription is for a schedule II o... Start Date: 12/02/21 Status: Ordered PNV Plus oral tablet 1 tablet, By Mouth, Daily, # 90 tablet, 3 Refills, Maintenance, 02/11/22 19:10:00 EDT, [facility] #[id number], Partial fill upon patient request if the [...] capsule, 1 Refills, Maintenance, 02/13/22 13:30:00 EDT, [facility] #[id number], Partial fill upon patient request if the prescription is for a schedule II opioid drug., 167.64, cm, 02/11/22 14:03:00 EDT,... Start Date: 02/13/22 Status: Ordered Vitamin B6 25 mg oral tablet 1 tablet = 25 mg, By Mouth, 3 times a day, # 90 tablet, 0 Refills, Maintenance, 02/11/22 19:10:00 EDT, [facility] #[id number], Partial fill upon patient request if the [...] Team Personnel Name: Josep Silva MD Address: [address] [place] [address] [place] [address]
--- OUTSIDE RECORDS SUMMARY | 2023-06-28 21:13 | XMS_ITS | Continuity of Care Document ---
Author Name Unknown Organization [facility] e Medicine Address Unknown Care Team Providers Care Frame Assembler Name Role Phone Josep Silva MD Primary Care Physician [facility] [facility] [place](s[place] 12/22/21 - 12/29/21 [facility] Rep[facility] Attending Physician: Not on Staff, Attending MD Referring Physician: Nohelia Zheng MD Allergies, Adverse Reactions, Alerts Substance Reaction Severity Status Latex Active Medications Apri 0.15 mg-0.03 mg oral tablet 1 tablet, By Mouth, Daily, # 30 tablet, 1 Refills, Maintenance, 09/26/21 12:36:00 EDT, [facility] #[id number], Partial fill upon patient request if the prescription is for a schedule II opioid drug., 1 tablet By Mouth Daily, 167.64, cm, 08/12/21... Start Date: 09/26/21 Status: Ordered letrozole 2.5 mg oral tablet 2 tablet = 5 mg, By Mouth, Daily, BEGIN ON 3RD DAY OF CYCLE, # 10 tablet, 3 Refills, Maintenance, 12/02/21 15:17:00 EDT, [facility] #[id number], Partial fill upon patient request if the prescription is for a schedule II opioid drug., 167.64, cm,... Start Date: 12/02/21 Stop Date: 12/22/21 Status: Ordered norethindrone 5 mg oral tablet See Instructions, TAKE 2 TABLETS BY MOUTH DAILY X3DAYS THEN 1 TABLET DAILY UNTIL BLEEDING STOPS, # 12 tablet, Refills 0, Instructions Replace Required Details, Route to Pharmacy Electronically, [facility] #[id number], 167.64, cm, 10/13/21 16:11:0... Start Date: 10/30/21 Status: Ordered Ovidrel 250 mcg/0.5 mL subcutaneous solution See Instructions, Take 1 Subcutaneous Injections Once per cycle when directed, # 1 each, 3 Refills,Maintenance, 12/02/21 15:20:00 EDT, Solution, [facility], Partial fill upon patient request [...] capsule, 5 Refills, Maintenance, 12/02/21 15:18:00 EDT, [facility] #[id number], Partial fill upon patient request if the prescription is for a schedule II opioid drug., 167.... Start Date: 12/02/21 Status: Ordered
--- OUTSIDE RECORDS SUMMARY | 2023-06-28 21:13 | XMS_ITS | Continuity of Care Document ---
Author Name Unknown Organization [facility] [employer] Address [address] [place] [address]- Care Team Providers Care Friction Paint Machine Tender Name Role Phone Josep Silva MD Primary Care Physician [place] [facility] [place]/22 [facility] [address], 4th [place] [address]- Allergies, Adverse Reactions, Alerts Substance Reaction Severity Status Latex Active Medications Apri 0.15 mg-0.03 mg oral tablet 1 tablet, By Mouth, Daily, # 30 tablet, 1 Refills, Maintenance, 09/26/21 12:36:00 EDT, [facility] #[id number], Partial fill upon patient request if the [...] tablet, 0 Refills, Maintenance, 02/11/22 19:10:00 EDT, [facility] #[id number], Partial fill upon patient request if the prescription is for a schedule II opioid drug., 167.64, cm, 02/11/22 14:03:... Start Date: 02/11/22 Status: Ordered letrozole 2.5 mg oral tablet 2 tablet = 5 mg, By Mouth, Daily, BEGIN ON 3RD DAY OF CYCLE, # 10 tablet, 3 Refills, Maintenance, 12/02/21 15:17:00 EDT, [facility] #[id number], Partial fill upon patient request if the prescription is for a schedule II opioid drug., 167.64, cm,... Start Date: 12/02/21 Stop Date: 12/22/21 Status: Ordered norethindrone 5 mg oral tablet See Instructions, TAKE 2 TABLETS BY MOUTH DAILY X3DAYS THEN 1 TABLET DAILY UNTIL BLEEDING STOPS, # 12 tablet, Refills 0, Instructions Replace Required Details, Route to Pharmacy Electronically, [facility] #[id number], 167.64, cm, 10/13/21 16:11:0... Start Date: 10/30/21 Status: Ordered Ovidrel 250 mcg/0.5 mL subcutaneous solution See Instructions, Take 1 Subcutaneous Injections Once per cycle when directed, # 1 each, 3 Refills,Maintenance, 12/02/21 15:20:00 EDT, Solution, [facility], Partial fill upon patient request if the prescription is for a schedule II o... Start Date: 12/02/21 Status: Ordered PNV Plus oral tablet 1 tablet, By Mouth, Daily, # 90 tablet, 3 Refills, Maintenance, 02/11/22 19:10:00 EDT, [facility] #[id number], Partial fill upon patient request if the [...] capsule, 0 Refills, Maintenance, 03/26/22 14:50:00 EDT, [facility] #[id number], Partial fill upon patient request if the prescription is for a schedule II opioid drug., 167.64, cm, 03/09/22 10:01:00 EDT,... Start Date: 03/26/22 Status: Ordered Vitamin B6 25 mg oral tablet 1 tablet = 25 mg, By Mouth, 3 times a day, # 90 tablet, 0 Refills, Maintenance, 02/11/22 19:10:00 EDT, [facility] #[id number], Partial fill upon patient request if the [...] Sex Patient Care team information Personnel Name: Ricardo ALMANZAR, Josep Irizarry Address: Address: [address] [place] [address] [address] [place] [address]
--- OUTSIDE RECORDS SUMMARY | 2023-06-28 21:13 | XMS_ITS | Continuity of Care Document ---
Author Name Unknown Organization [facility] Address [address] [address]- Care Team Providers Care Sports Therapist Name Role Phone Josep Silva MD Primary Care Physician [place] [facility] [place]/22 - 10/14/22 [facility] [address] [address]- Attending Physician: Ricky Mcclellan MD Admitting Physician: [...] 0 Refills, Maintenance, 05/07/22 9:18:00 EDT, Capsule, [facility] #[id number], Partial fill upon patient request if the prescription is for a schedule II opioid drug., 167.64, cm, 05/07/22 8:53:00... Start Date: 05/07/22 Status: Ordered doxylamine 25 mg oral tablet 1 tablet = 25 mg, By Mouth, Daily at bedtime, # 30 tablet, 0 Refills, Maintenance, 02/11/22 19:10:00 EDT, [facility] #[id number], Partial fill upon patient request if the prescription is for a schedule II opioid drug., 167.64, cm, 02/11/22 14:03:... Start Date: 02/11/22 Status: Ordered Ferate 256 mg (28 mg elemental iron) oral tablet 1 tablet = 256 mg, By Mouth, Daily, # 100 tablet, 1 Refills, Maintenance, 06/30/22 19:27:00 EST, Tablet, [facility] #[id number], Partial fill upon patient request if the prescription is for a schedule II opioid drug., 167.64, cm, 06/29/22 13:33:0... Start Date: 06/30/22 Status: Ordered PNV Plus oral tablet 1 tablet, By Mouth, Daily, # 90 tablet, 3 Refills, Maintenance, 02/11/22 19:10:00 EDT, [facility] #[id number], Partial fill upon patient request if the [...] tablet, 2 Refills, Maintenance, 07/15/22 20:11:00 EST, [facility][id number], Partial fill upon patient request if the [...] Reference Physician Member Role: PCP Address: Address: [address] [place] [address] Drive [address] [place] [address]- Care Team Related Persons Name: AMANDA CHRISTIANSEN Address: home [address] [place] [address] Name: ANTOINETTE PORTILLO Address: home [address] [place] [address]
--- OUTSIDE RECORDS SUMMARY | 2023-06-28 21:13 | XMS_ITS | Continuity of Care Document ---
Author Name Unknown Organization [facility] Address Unknown Care Team Providers Care Shade Cutter Name Role Phone Josep Silva MD Primary Care Physician Encounter [facility] [place] Date(s): 08/13/21 - 09/12/21 [facility] Allergies, Adverse Reactions, Alerts Substance Reaction Severity Status Latex Active Percocet itch Active
--- OUTSIDE RECORDS SUMMARY | 2023-06-28 21:13 | XMS_ITS | Continuity of Care Document ---
Author Name Unknown Organization [facility] Address Unknown Care Team Providers Care Traffic Law Attorney Name Role Phone Josep Silva MD Primary Care Physician [phone] Encounter [facility] [place] ACCT R [id number] Date(s): 01/26/22 - 02/02/22 [facility] Attending Physician: Keiko Sawant MD Referring Physician: Nohelia Zheng MD Allergies, Adverse Reactions, Alerts Substance Reaction Severity Status Latex Active Medications Apri 0.15 mg-0.03 mg oral tablet 1 tablet, By Mouth, Daily, # 30 tablet, 1 Refills, Maintenance, 09/26/21 12:36:00 EDT, [facility] #[id number], Partial fill upon patient request if the prescription is for a schedule II opioid drug., 1 tablet By Mouth Daily, 167.64, cm, 08/12/21... Start Date: 09/26/21 Status: Ordered letrozole 2.5 mg oral tablet 2 tablet = 5 mg, By Mouth, Daily, BEGIN ON 3RD DAY OF CYCLE, # 10 tablet, 3 Refills, Maintenance, 12/02/21 15:17:00 EDT, [facility] #[id number], Partial fill upon patient request if the prescription is for a schedule II opioid drug., 167.64, cm,... Start Date: 12/02/21 Stop Date: 12/22/21 Status: Ordered norethindrone 5 mg oral tablet See Instructions, TAKE 2 TABLETS BY MOUTH DAILY X3DAYS THEN 1 TABLET DAILY UNTIL BLEEDING STOPS, # 12 tablet, Refills 0, Instructions Replace Required Details, Route to Pharmacy Electronically, [facility] #[id number], 167.64, cm, 10/13/21 16:11:0... Start Date: 10/30/21 Status: Ordered Ovidrel 250 mcg/0.5 mL subcutaneous solution See Instructions, Take 1 Subcutaneous Injections Once per cycle when directed, # 1 each, 3 Refills,Maintenance, 12/02/21 15:20:00 EDT, Solution, [facility], Partial fill upon patient [...] capsule, 2 Refills, Maintenance, 01/16/22 12:03:00 EDT[id number], Partial fill upon patient request if the prescription is for a schedule II opioid drug., 167.64, cm, 12/02/21 14:17:00 EDT,... Start Date: 01/16/22 Status: Ordered
--- OUTSIDE RECORDS SUMMARY | 2023-06-28 21:13 | XMS_ITS | Continuity of Care Document ---
Author Name Unknown Organization [facility] Address [address] [address]- Care Team Providers Care Receiving Team Member Name Role Phone Ricardo ALMANZAR, Josep Irizarry Primary Care Physician [phone] Encounter [facility] [place] R [id number] Date(s): 06/29/22 - 09/23/22 [facility] [address] [address] Attending Physician: Not on Staff, Attending MD Admitting Physician: Ricky Mcclellan MD Referring Physician: Mellissa MAY, Jewell Garcia Head Allergies, Adverse Reactions, Alerts Substance Reaction Severity Status Latex Active Immunizations Given and Recorded Vaccine Date Status Refusal Reason tetanus/diphtheria/pertussis, acel(Tdap) 06/29/22 Recorded Medications aspirin 81 mg oral capsule 1 capsule = 81 mg, By Mouth, Daily, # 30 capsule, 0 Refills, Maintenance, 05/07/22 9:18:00 EDT, Capsule, [facility][id number], Partial fill upon patient request if the prescription is for a schedule II opioid drug., 167.64, cm, 05/07/22 8:53:00... Start Date: 05/07/22 Status: Ordered doxylamine 25 mg oral tablet 1 tablet = 25 mg, By Mouth, Daily at bedtime, # 30 tablet, 0 Refills, Maintenance, 02/11/22 19:10:00 EDT, [facility] #[id number], Partial fill upon patient request if the prescription is for a schedule II opioid drug., 167.64, cm, 02/11/22 14:03:... Start Date: 02/11/22 Status: Ordered Ferate 256 mg (28 mg elemental iron) oral tablet 1 tablet = 256 mg, By Mouth, Daily, # 100 tablet, 1 Refills, Maintenance, 06/30/22 19:27:00 EST, Tablet, [facility] #[id number], Partial fill upon patient request if the prescription is for a schedule II opioid drug., 167.64, cm, 06/29/22 13:33:0... Start Date: 06/30/22 Status: Ordered PNV Plus oral tablet 1 tablet, By Mouth, Daily, # 90 tablet, 3 Refills, Maintenance, 02/11/22 19:10:00 EDT, [facility] #[id number], Partial fill upon patient request if the [...] tablet, 2 Refills, Maintenance, 07/15/22 20:11:00 EST, [facility][id number], Partial fill upon patient request if the [...] Reference Physician Member Role: PCP Address: Address: [address] [place] [address] [place] [address]- Care Team Related Persons Name: AMANDA CHRISTIANSEN Address: [address] [place] [address] Name: ANTOINETTE PORTILLO Address: home [address] [place] [address]
--- OUTSIDE RECORDS SUMMARY | 2023-06-28 21:13 | XMS_ITS | Continuity of Care Document ---
Author Name Unknown Organization [facility] Address Unknown Care Team Providers Care Senior Telecommunications Technician Name Role Phone Josep Silva MD Primary Care Physician [place] [facility] [place] 09/25/21 - 10/25/21 [facility] Allergies, Adverse Reactions, Alerts Substance Reaction Severity Status Latex Active Medications Apri 0.15 mg-0.03 mg oral tablet 1 tablet, By Mouth, Daily, # 30 tablet, 1 Refills, Maintenance, 09/26/21 12:36:00 EDT, [facility] #[id number], Partial fill upon patient request if the prescription is for a schedule II opioid drug., 1 tablet By Mouth Daily, 167.64, cm, 08/12/21... Start Date: 09/26/21 Status: Ordered Aygestin 5 mg oral tablet See Instructions, Take 2 tablets po x 3 days, then 1 tablet daily until bleeding stops, # 12 tablet, 0 Refills, Maintenance, 10/24/21 15:39:00 EDT, [facility] #[id number], 167.64, cm, 10/13/21 16:11:00 EDT, Height, 70.4, kg, 01/01/20 6:55:00 EDT,... Start Date: 10/24/21 Status: Ordered
--- NOTE | 2023-06-28 21:14 | PC.NURSE ---
pt was discharge with pt, pt verbalized understanding, no sign of distress.
--- OUTSIDE RECORDS SUMMARY | 2023-06-28 21:14 | XMS_ITS | Continuity of Care Document ---
Author Name Unknown Organization [facility] Address Unknown Care Team Providers Care Supervisor Cab Name Role Phone Josep Silva MD Primary Care Physician [place] [facility] [place] 02/05/22 [facility] Allergies, Adverse Reactions, Alerts Substance Reaction Severity Status Latex Active Medications Apri 0.15 mg-0.03 mg oral tablet 1 tablet, By Mouth, Daily, # 30 tablet, 1 Refills, Maintenance, 09/26/21 12:36:00 EDT, [facility] #[id number], Partial fill upon patient request if the prescription is for a schedule II opioid drug., 1 tablet By Mouth Daily, 167.64, cm, 08/12/21... Start Date: 09/26/21 Status: Ordered letrozole 2.5 mg oral tablet 2 tablet = 5 mg, By Mouth, Daily, BEGIN ON 3RD DAY OF CYCLE, # 10 tablet, 3 Refills, Maintenance, 12/02/21 15:17:00 EDT, [facility] #[id number], Partial fill upon patient request if the prescription is for a schedule II opioid drug., 167.64, cm,... Start Date: 12/02/21 Stop Date: 12/22/21 Status: Ordered norethindrone 5 mg oral tablet See Instructions, TAKE 2 TABLETS BY MOUTH DAILY X3DAYS THEN 1 TABLET DAILY UNTIL BLEEDING STOPS, # 12 tablet, Refills 0, Instructions Replace Required Details, Route to Pharmacy Electronically, [facility] #[id number], 167.64, cm, 10/13/21 16:11:0... Start Date: 10/30/21 Status: Ordered Ovidrel 250 mcg/0.5 mL subcutaneous solution See Instructions, Take 1 Subcutaneous Injections Once per cycle when directed, # 1 each, 3 Refills,Maintenance, 12/02/21 15:20:00 EDT, Solution, [facility], Partial fill upon [...] capsule, 2 Refills, Maintenance, 01/16/22 12:03:00 EDT, [facility] #[id number], Partial fill upon patient request if the prescription is for a schedule II opioid drug., 167.64, cm, 12/02/21 14:17:00 EDT,... Start Date: 01/16/22 Status: Ordered
--- OUTSIDE RECORDS SUMMARY | 2023-06-28 21:14 | XMS_ITS | Continuity of Care Document ---
Author Name Unknown Organization [facility] Address Unknown Care Team Providers Care Test Lab Technician Name Role Phone Josep Silva MD Primary Care Physician Encounter [facility] Date(s): 08/15/21 - 09/14/21 [facility] Allergies, Adverse Reactions, Alerts Substance Reaction Severity Status Latex Active Percocet itch Active
--- OUTSIDE RECORDS SUMMARY | 2023-06-28 21:14 | XMS_ITS | Continuity of Care Document ---
Author Name Unknown Organization [facility] Address [address] [address]- Care Team Providers Care Combination Window Installer Name Role Phone Josep Silva MD Primary Care Physician [phone] Encounter [facility] [place] ACCT R [id number] Date(s): 06/29/22 - 08/30/22 [facility] [address] [address] Attending Physician: Not on Staff, Attending MD Referring Physician: Mellissa MAY, Jewell Garcia Head Allergies, Adverse Reactions, Alerts Substance Reaction Severity Status Latex Active Immunizations Given and Recorded Vaccine Date Status Refusal Reason tetanus/diphtheria/pertussis, acel(Tdap) 06/29/22 Recorded Medications aspirin 81 mg oral capsule 1 capsule = 81 mg, By Mouth, Daily, # 30 capsule, 0 Refills, Maintenance, 05/07/22 9:18:00 EDT, [facility], [facility][id number], Partial fill upon patient request if the prescription is for a schedule II opioid drug., 167.64, cm, 05/07/22 8:53:00... Start Date: 05/07/22 Status: Ordered doxylamine 25 mg oral tablet 1 tablet = 25 mg, By Mouth, Daily at bedtime, # 30 tablet, 0 Refills, Maintenance, 02/11/22 19:10:00 EDT, [facility][id number], Partial fill upon patient request if the prescription is for a schedule II opioid drug., 167.64, cm, 02/11/22 14:03:... Start Date: 02/11/22 Status: Ordered Ferate 256 mg (28 mg elemental iron) oral tablet 1 tablet = 256 mg, By Mouth, Daily, # 100 tablet, 1 Refills, Maintenance, 06/30/22 19:27:00 EST, Tablet, [facility][id number], Partial fill upon patient request if the prescription is for a schedule II opioid drug., 167.64, cm, 06/29/22 13:33:0... Start Date: 06/30/22 Status: Ordered PNV Plus oral tablet 1 tablet, By Mouth, Daily, # 90 tablet, 3 Refills, Maintenance, 02/11/22 19:10:00 EDT, [facility][id number], Partial fill upon patient request if the [...] tablet, 2 Refills, Maintenance, 07/15/22 20:11:00 EST, [facility][id number], Partial fill upon patient request if the [...] Reference Physician Member Role: PCP Address: Address: [address] [place] [address] Drive [address] [place] [address]- Care Team Related Persons Name: AMANDA CHRISTIANSEN Address: [address] [place] [address] Name: ANTOINETTE PORTILLO Address: [address] [place] [address]
--- OUTSIDE RECORDS SUMMARY | 2023-06-28 21:14 | XMS_ITS | Continuity of Care Document ---
Author Name Unknown Organization [facility] Address [address] [address]- Care Team Providers Care Senior Resident Care Director Name Role Phone Josep Silva MD Primary Care Physician Encounter [facility] [place] ACCT R [id number] Date(s): 06/29/22 - 09/09/22 [facility] [address] [address] Attending Physician: Janie Arenas CNM Admitting Physician: Janie Arenas CNM Referring Physician: Mellissa MAY, Jewell Garcia Head Allergies, Adverse Reactions, Alerts Substance Reaction Severity Status Latex Active Immunizations Given and Recorded Vaccine Date Status Refusal Reason tetanus/diphtheria/pertussis, acel(Tdap) 06/29/22 Recorded Medications aspirin 81 mg oral capsule 1 capsule = 81 mg, By Mouth, Daily, # 30 capsule, 0 Refills, Maintenance, 05/07/22 9:18:00 EDT, Capsule, [facility] #[id number], Partial fill upon patient request if the prescription is for a schedule II opioid drug., 167.64, cm, 05/07/22 8:53:00... Start Date: 05/07/22 Status: Ordered doxylamine 25 mg oral tablet 1 tablet = 25 mg, By Mouth, Daily at bedtime, # 30 tablet, 0 Refills, Maintenance, 02/11/22 19:10:00 EDT, [facility] #[id number], Partial fill upon patient request if the prescription is for a schedule II opioid drug., 167.64, cm, 02/11/22 14:03:... Start Date: 02/11/22 Status: Ordered Ferate 256 mg (28 mg elemental iron) oral tablet 1 tablet = 256 mg, By Mouth, Daily, # 100 tablet, 1 Refills, Maintenance, 06/30/22 19:27:00 EST, Tablet, [facility] #[id number], Partial fill upon patient request if the prescription is for a schedule II opioid drug., 167.64, cm, 06/29/22 13:33:0... Start Date: 06/30/22 Status: Ordered PNV Plus oral tablet 1 tablet, By Mouth, Daily, # 90 tablet, 3 Refills, Maintenance, 02/11/22 19:10:00 EDT, [facility] #[id number], Partial fill upon patient request if the [...] tablet, 2 Refills, Maintenance, 07/15/22 20:11:00 EST, [facility]#[id number], Partial fill upon patient request if the [...] Reference Physician Member Role: PCP Address: Address: [address] [place] [address] [place] [address]- Care Team Related Persons Name: AMANDA CHRISTIANSEN Address: [address] [place] [address] Name: ANTOINETTE PORTILLO Address: home [address] [place] [address]
--- OUTSIDE RECORDS SUMMARY | 2023-06-28 21:14 | XMS_ITS | Continuity of Care Document ---
Author Name Unknown Organization [facility] Address [address] [address]- Care Team Providers Care Venetian Blind Assembler Name Role Phone Josep Silva MD Primary Care Physician En[place] [facility] [place] Date(s): 02/11/22 - 03/13/22 [facility] [address] [address] Allergies, Adverse Reactions, Alerts Substance Reaction Severity Status Latex Active Medications Apri 0.15 mg-0.03 mg oral tablet 1 tablet, By Mouth, Daily, # 30 tablet, 1 Refills, Maintenance, 09/26/21 12:36:00 EDT, [facility] #[id number], Partial fill upon patient request if the prescription is for a schedule II opioid drug., 1 tablet By Mouth Daily, 167.64, cm, 08/12/21... Start Date: 09/26/21 Status: Ordered doxylamine 25 mg oral tablet 1 tablet = 25 mg, By Mouth, Daily at bedtime, # 30 tablet, 0 Refills, Maintenance, 02/11/22 19:10:00 EDT, [facility] #[id number], Partial fill upon patient request if the prescription is for a schedule II opioid drug., 167.64, cm, 02/11/22 14:03:... Start Date: 02/11/22 Status: Ordered letrozole 2.5 mg oral tablet 2 tablet = 5 mg, By Mouth, Daily, BEGIN ON 3RD DAY OF CYCLE, # 10 tablet, 3 Refills, Maintenance, 12/02/21 15:17:00 EDT, [facility] #[id number], Partial fill upon patient request if the prescription is for a schedule II opioid drug., 167.64, cm,... Start Date: 12/02/21 Stop Date: 12/22/21 Status: Ordered norethindrone 5 mg oral tablet See Instructions, TAKE 2 TABLETS BY MOUTH DAILY X3DAYS THEN 1 TABLET DAILY UNTIL BLEEDING STOPS, # 12 tablet, Refills 0, Instructions Replace Required Details, Route to Pharmacy Electronically, [facility] #[id number], 167.64, cm, 10/13/21 16:11:0... Start Date: 10/30/21 Status: Ordered Ovidrel 250 mcg/0.5 mL subcutaneous solution See Instructions, Take 1 Subcutaneous Injections Once per cycle when directed, # 1 each, 3 Refills,Maintenance, 12/02/21 15:20:00 EDT, Solution, [facility], Partial fill upon patient request if the prescription is for a schedule II o... Start Date: 12/02/21 Status: Ordered PNV Plus oral tablet 1 tablet, By Mouth, Daily, # 90 tablet, 3 Refills, Maintenance, 02/11/22 19:10:00 EDT, [facility] #[id number], Partial fill upon patient request if the [...] capsule, 1 Refills, Maintenance, 02/13/22 13:30:00 EDT, [facility] #[id number], Partial fill upon patient request if the prescription is for a schedule II opioid drug., 167.64, cm, 02/11/22 14:03:00 EDT,... Start Date: 02/13/22 Status: Ordered Vitamin B6 25 mg oral tablet 1 tablet = 25 mg, By Mouth, 3 times a day, # 90 tablet, 0 Refills, Maintenance, 02/11/22 19:10:00 EDT, [facility] #[id number], Partial fill upon patient request if the [...] Team Personnel Name: Josep Silva MD Address: [address] [place] [address] [place] [address]
--- OUTSIDE RECORDS SUMMARY | 2023-06-28 21:14 | XMS_ITS | Continuity of Care Document ---
Author Name Unknown [facility] Address [address] [address]- Care Team Providers Care Stave Hewer Name Role Phone Josep Silva MD Primary Care Physician En[place] [facility] [place] Date(s[place] 06/29/22 - [facility] [address] [address]- Attending Physician: Janie Arenas CNM Admitting Physician: [...] 0 Refills, Maintenance, 05/07/22 9:18:00 EDT, Capsule, [facility] #[id number], Partial fill upon patient request if the prescription is for a schedule II opioid drug., 167.64, cm, 05/07/22 8:53:00... Start Date: 05/07/22 Status: Ordered doxylamine 25 mg oral tablet 1 tablet = 25 mg, By Mouth, Daily at bedtime, # 30 tablet, 0 Refills, Maintenance, 02/11/22 19:10:00 EDT, [facility] #[id number], Partial fill upon patient request if the prescription is for a schedule II opioid drug., 167.64, cm, 02/11/22 14:03:... Start Date: 02/11/22 Status: Ordered Ferate 256 mg (28 mg elemental iron) oral tablet 1 tablet = 256 mg, By Mouth, Daily, # 100 tablet, 1 Refills, Maintenance, 06/30/22 19:27:00 EST, Tablet, [facility][id number], Partial fill upon patient request if the prescription is for a schedule II opioid drug., 167.64, cm, 06/29/22 13:33:0... Start Date: 06/30/22 Status: Ordered PNV Plus oral tablet 1 tablet, By Mouth, Daily, # 90 tablet, 3 Refills, Maintenance, 02/11/22 19:10:00 EDT, [facility] #[id number], Partial fill upon patient request if the [...] tablet, 2 Refills, Maintenance, 07/15/22 20:11:00 EST, [id number], Partial fill upon patient request if the [...] Reference Physician Member Role: PCP Address: Address: [address] [place] [address] Drive [address] [place] [address]- Care Team Related Persons Name: AMANDA CHRISTIANSEN Address: [address] [place] [address] Name: ANTOINETTE PORTILLO Address: home [address] [place] [address]
--- OUTSIDE RECORDS SUMMARY | 2023-06-28 21:14 | XMS_ITS | Continuity of Care Document ---
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 Name Role Phone Josep Silva MD Primary Care Physician Encounter [facility] [place] Date(s): 02/09/22 - 02/16/22 [facility] Attending Physician: Not on Staff, Attending MD Referring Physician: Keiko Sawant MD Allergies, Adverse Reactions, Alerts Substance Reaction Severity Status Latex Active Medications Apri 0.15 mg-0.03 mg oral tablet 1 tablet, By Mouth, Daily, # 30 tablet, 1 Refills, Maintenance, 09/26/21 12:36:00 EDT, [facility] #[id number], Partial fill upon patient request if the prescription is for a schedule II opioid drug., 1 tablet By Mouth Daily, 167.64, cm, 08/12/21... Start Date: 09/26/21 Status: Ordered doxylamine 25 mg oral tablet 1 tablet = 25 mg, By Mouth, Daily at bedtime, # 30 tablet, 0 Refills, Maintenance, 02/11/22 19:10:00 EDT, [facility] #[id number], Partial fill upon patient request if the prescription is for a schedule II opioid drug., 167.64, cm, 02/11/22 14:03:... Start Date: 02/11/22 Status: Ordered letrozole 2.5 mg oral tablet 2 tablet = 5 mg, By Mouth, Daily, BEGIN ON 3RD DAY OF CYCLE, # 10 tablet, 3 Refills, Maintenance, 12/02/21 15:17:00 EDT, [facility] #[id number], Partial fill upon patient request if the prescription is for a schedule II opioid drug., 167.64, cm,... Start Date: 12/02/21 Stop Date: 12/22/21 Status: Ordered norethindrone 5 mg oral tablet See Instructions, TAKE 2 TABLETS BY MOUTH DAILY X3DAYS THEN 1 TABLET DAILY UNTIL BLEEDING STOPS, # 12 tablet, Refills 0, Instructions Replace Required Details, Route to Pharmacy Electronically, [facility] #[id number], 167.64, cm, 10/13/21 16:11:0... Start Date: 10/30/21 Status: Ordered Ovidrel 250 mcg/0.5 mL subcutaneous solution See Instructions, Take 1 Subcutaneous Injections Once per cycle when directed, # 1 each, 3 Refills,Maintenance, 12/02/21 15:20:00 EDT, Solution, [facility], Partial fill upon patient request if the prescription is for a schedule II o... Start Date: 12/02/21 Status: Ordered PNV Plus oral tablet 1 tablet, By Mouth, Daily, # 90 tablet, 3 Refills, Maintenance, 02/11/22 19:10:00 EDT, [facility] #[id number], Partial fill upon patient request if the [...] capsule, 1 Refills, Maintenance, 02/13/22 13:30:00 EDT, [facility] #[id number], Partial fill upon patient request if the prescription is for a schedule II opioid drug., 167.64, cm, 02/11/22 14:03:00 EDT,... Start Date: 02/13/22 Status: Ordered Vitamin B6 25 mg oral tablet 1 tablet = 25 mg, By Mouth, 3 times a day, # 90 tablet, 0 Refills, Maintenance, 02/11/22 19:10:00 EDT, [facility] #[id number], Partial fill upon patient request if the [...]
== END 2023-06-28 21:15 | disposition home or self-care (01) ==
PROVIDERS: Emergency Provider Internal Medicine; PCP Internal Medicine
DX: H10.021 Other mucopurulent conjunctivitis, right eye (principal); Z79.899 Other long term (current) drug therapy
CPT/HCPCS: 99282; 99283

== ENCOUNTER → 2024-03-09 12:04 | Outpatient (RCR) | payer OTHER, SELFPAY ==
[2020-10-14 15:56] VITALS: BP 138/70; PULSE 72; RESP 16; TEMP 36.8; O2SAT 98
[2020-10-14] MEDS: metHOTREXate sodium 125 MG/5 ML SYRINGE 88 MG IM (16:39)
--- NOTE | 2020-10-14 16:55 | MHC.HEMONC ---
VSS. Pt of Dr Mullen's here for MTX IM for ectopic . She had just left his office. Consent signed and labs reviewed. Dose checked. Pt given 2 (split dose) MTX via RUOQ and LUOQ and barrie well. She was advised to call Dr Mullen or his answering service with pain or nausea. She has f/u labs in 4 days and f/u with Dr Mullen in one week.
== END | disposition home or self-care (01) ==
LOC: HO.ONC 10-14 15:42
PROVIDERS: PCP Internal Medicine; Visit Provider Obstetrics & Gynecology
DX: O00.90 Unspecified ectopic pregnancy without intrauterine pregnancy (principal)
CPT/HCPCS: 96401; J9250

== ENCOUNTER 2024-07-14 16:33 | Outpatient (AMB) | payer OTHER, SELFPAY ==
--- NOTE | 2024-07-14 16:58 | A.OFFPC_ITS ---
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: No Accompanied by: Self / Same As Patient Allergies No Known Allergies Allergy (Verified 07/14/24 17:54) Medication List - Last Reconciled 07/14/24 by Josep Silva MD bupropion HCl XL 150 mg PO QAM 30 days hydroxyzine HCl 25 mg PO TID PRN 30 days Tobacco use date assessed: 07/14/24 Dental Screening Dental Screen Date: 07/14/24 Did you have a dental visit in the last 12 months?: No Did you have a dental problem in the last 6 months where you did not have access to dental care?: No Was dental information given to patient?: No HPI Annual Physical HPI Details Patient comes in today for her annual physical examination States that she has been experiencing multiple symptoms over the past 1 to 2 months, including recurrent sensations of hot flashes night sweats as well as increased irritability, hair loss and absence of her menstrual period for the past couple of months Patient is now questioning whether she is starting to go into early menopause and would like to know if there is any way to check into this Patient also reports experiencing increased anxiety, which she states has been going on for the past couple of years now since her 2nd child was born She also states that she has trouble sleeping at night often and that this is mostly related to her anxiety She recalls experiencing depression and was tried on Sertraline in the past, which she states she stopped taking after a few months as she felt that the medication was making her feel more depressed Adds that she has noticed frequent dark stools during bowel movements over the past few weeks Reports experiencing increased fatigue also for a while now and she is concerned that she is again anemic now She denies any headaches or dizziness Denies any chest pains, no increased shortness of breath No nausea/vomiting, no abdominal pain No change in bowel habits noted She denies any acute urinary symptoms She is up-to-date with annual gynecologic exam and Pap smear - patient currently goes to [facility] Medical History (Updated 07/15/24 @ 08:21 by Josep Silva MD) Overweight (BMI 25.0-29.9) Generalized anxiety disorder Surgical History (Updated 07/15/24 @ 05:36 by Josep Silva MD) History of History of knee surgery Family History Mother Diabetes High blood pressure Father No problems noted. Social History Housing: House Alcohol intake: never Patient Tobacco Use Status: Never used Tobacco e-Cigarette/Vaping Use: Never Used Second Hand Smoke Exposure: No service: No Current occupational status: employed Sexual orientation: Straight/Heterosexual Gender identity: Female Cognitive needs: No Hearing needs: No Vision needs: No Questionnaire PHQ-9 Over the last 2 weeks, how often have you been bothered by any of the following problems? 1. Little interest or pleasure in doing things: not at all 2. Feeling down, depressed, or hopeless: not at all 3. Trouble falling or staying asleep, or sleeping too much: not at all 4. Feeling tired or having little energy: not at all 5. Poor appetite or overeating: not at all 6. Feeling bad about yourself - or that you are a failure or have let yourself or your family down: not at all 7. Trouble concentrating on things, such as reading the newspaper or watching television: not at all 8. Moving or speaking so slowly that other people could have noticed. Or the opposite - being so fidgety or restless that you have been moving around a lot more than usual: not at all 9. Thoughts that you would be better off or of hurting yourself in some way: not at all Total score: 0 Depression Screening Interpretation: Negative Depression Screening Done: Yes 77755 - PHQ-9 Billing: Yes Source: Developed by Drs. Manfred Peter, Gwen Arriaga, Meng Brizuela and colleagues, with an educational lloyd from [employer]. Thrive Questionnaire Date Thrive assessed: 07/14/24 I am a: Patient What is your living situation today?: I have a steady place to live Within the past 12 months, did the food you bought not last and you didn't have the money to get more?: I choose not to answer this question Within the past 12 months, did you worry whether your food would run out before you got money to buy more?: I choose not to answer this question Do you have trouble paying for medicines?: I choose not to answer this question Do you have trouble getting transportation to medical appointments?: I choose not to answer this question Do you have trouble paying your heating and electricity bill?: I choose not to answer this question Do you have trouble taking care of your child, family member or friend?: I choose not to answer this question Do you have trouble with day-to-day activities such as bathing, preparing meals, shopping, managing finances, etc.?: I choose not to answer this question Are you currently unemployed and looking for a job?: I choose not to answer this question Are you interested in more education?: I choose not to answer this question Please select the resources that you would like help with: None Currently or been in a relationship where the following occur: I choose not to answer THRIVE Score: 0 AUDIT C Alcohol Use Questionnaire (AUDIT-C) 1. How often do you have a drink containing alcohol?: Never 3. How often do you have six or more drinks on one occasion?: Never Total Score: 0 Score Reviewed/Action Taken: Yes MARLIN-7 AMB Questionnaire MARLIN-7 Date MARLIN - 7 assessed: 07/14/24 Feeling nervous, anxious, or on edge: 0 = Not at all Not being able to stop or control worryin = Not at all Worrying too much about different things: 0 = Not at all Trouble relaxin = Not at all Being so restless that it is hard to sit still: 0 = Not at all Becoming easily annoyed or irritable: 0 = Not at all Feeling afraid as if something awful might happen: 0 = Not at all Total MARLIN-7 score (0-4 normal; 5-9 mild; 10-14 moderate; 15-21 severe): 0 Source: Developed by Drs. Manfred Peter, Gwen Arriaga, Meng Brizuela and colleagues, with an educational lloyd from [employer]. Review of Systems Const Denies chills, Reports difficulty sleeping, Reports fatigue, Denies fever(s), Denies headache(s), Denies malaise and Reports night sweats (at times recently) Eyes Denies blurry vision, Denies change in vision, Denies irritation and Denies itchy eyes ENT Denies dysphagia, Denies dizziness, Denies otalgia, Denies headache(s), Denies nasal congestion, Denies neck pain, Denies odynophagia, Denies sinus pain and Denies sore throat Card Denies chest pain, Reports rapid heart rate (frequent), Denies irregular heart rhythm, Denies palpitations and Denies dyspnea Resp Denies chest congestion, Denies cough, Denies dyspnea and Denies wheezing GI Denies abdominal pain, Denies melena (but stool appears dark often lately), Denies bloating, Denies hematochezia, Denies constipation, Denies dysphagia, Denies heartburn, Denies diarrhea, Denies nausea, Denies odynophagia and Denies vomiting Reports amenorrhea (x 2 months), Denies hematuria, Denies urinary frequency, Reports hot flashes, Denies dysuria, Denies urinary incontinence, Denies urinary urgency and Denies vaginal discharge Musc Denies back pain, Reports arthralgias (left knee, on and off), Denies joint swelling, Denies muscle weakness and Denies neck pain Skin/Breast Denies breast pain, Denies breast mass, Denies change in pigmentation, Reports alopecia, Denies lesions, Denies rash and Denies unusual bruising Neuro Denies dizziness, Denies headache(s) and Denies paresthesias Psych Reports anxiety, Denies depression and Reports irritability Endo Reports fatigue and Denies palpitations Estiven/Lymph Denies easy bruising Aller/Immun Denies itchy eyes and Denies wheezing Physical exam (Primary Care) Vital Signs: Last Vital Signs Pulse 66 07/14/24 16:59 BP 100/62 07/14/24 16:59 Pulse Ox 99 07/14/24 16:59 Oxygen Delivery Method Room Air 07/14/24 16:59 BMI result Body Mass Index 28.0 Tobacco/Smoking Status: Tobacco use Status Tobacco use date assessed 07/14/24 07/14/24 17:01 Patient Tobacco Use Status Never used Tobacco 07/14/24 17:01 e-Cigarette/Vaping Use Never Used 07/14/24 17:01 PHQ-9: PHQ-9 Score PHQ-9: Total score 0 07/14/24 17:55 Depression Screening Interpretation: Negative Thrive Assessment: Date of Thrive Assessment Date Thrive assessed 07/14/24 07/14/24 17:01 Currently or been in a relationship where the following occur: I choose not to answer Const General: no acute distress, alert and awake Orientation/consciousness: patient oriented x3 HENMT Head: Yes normocephalic and Yes atraumatic Ears: external ears normal, TM's normal bilaterally and EAC's normal General nose exam: No nasal discharge present Face and sinus: Yes normal facial exam and Yes sinuses nontender Teeth and gingiva: dentition normal Throat: Yes posterior oropharynx normal and Yes tonsils normal (no TP congestion) Eyes Eyelids: Yes eyelids normal Conjunctivae: conjunctivae normal Pupils: Equal, round and reactive pupils present EOM: EOMs intact bilaterally Neck Neck: Yes supple and No lymphadenopathy Thyroid: Thyroid normal Resp Auscultation: clear to auscultation bilaterally, no rales and no wheezes Cardio Rate: regular rate Rhythm: regular rhythm Heart sounds: no murmurs GI Palpation (GI): Soft to palpation, nontender and No hepatosplenomegaly present Auscultation: normal bowel sounds General: Yes no CVA tenderness Back/Spine/Pelvis Back: no CVA tenderness Thoracic/Lumbar Spine: thoracic and lumbar spine normal to inspection Skin Lesions: no lesions Rashes: no rashes Neuro General: patient oriented x3, moves all extremities, no focal motor deficits and CN's II-XI intact bilaterally Cranial nerves: Yes Equal, round and reactive pupils present Cognition (Neuro): normal cognition Gait exam (Neuro): Normal gait present Extrem General: Yes no clubbing, cyanosis or edema Coding Level of Care Code Est Pt Prev Care 18-39y(22986) Diagnoses Annual physical exam Z00.00 Fatigue, unspecified type R53.83 Fatigue type: unspecified Hot flashes R23.2 Hair loss L65.9 Dark stools R19.5 Absence of menstruation N91.2 Generalized anxiety disorder F41.1 Overweight (BMI 25.0-29.9) E66.3 Additional Codes PHQ-9 - 41664 - PHQ-9 Billing: Yes ([id number]) Assessment & Plan Assessment & Plan (1) Annual physical exam: Code(s): Z00.00 - Encounter for general adult medical examination without abnormal findings Category: Medical Plan: Check labs Patient states that she is up-to-date with her annual gynecology exam and pap smear - she goes to [facility] in [place] (2) Fatigue: Code(s): R53.83 - Other fatigue Category: Medical Qualifiers: Fatigue type: unspecified Qualified Code(s): R53.83 - Other fatigue Plan: Will check his labs, including his CBC and TSH (3) Hot flashes: Code(s): R23.2 - Flushing Category: Medical Plan: Will check labs (4) Hair loss: Code(s): L65.9 - Nonscarring hair loss, unspecified Category: Medical Plan: Check labs Will consider referral to dermatology for further evaluation and management if labs are unrevealing (5) Dark stools: Code(s): R19.5 - Other fecal abnormalities Category: Medical Plan: Will check CBC Will consider referring to gastroenterology for further evaluation if patient is again anemic on her lab (6) Absence of menstruation: Code(s): N91.2 - Amenorrhea, unspecified Category: Medical Plan: Will check HCG Patient is advised to follow up with her quality control specialist regarding this (7) Generalized anxiety disorder: Code(s): F41.1 - Generalized anxiety disorder Category: Medical Plan: Will go ahead and start patient on Bupropion XL 150 mg Q AM and Hydroxyzine 25 mg TID PRN (8) Overweight (BMI 25.0-29.9): Code(s): E66.3 - Overweight Category: Medical Plan: Reinforced diet/exercise as tolerated/lose weight Plan Follow up in 3 months Orders: Orders Vitamin D 25-OH Total Today E55.9 - Vitamin D deficiency, unspecified, Z00.00 - Encounter for general adult medical examination without abnormal findings IRON PROFILE Today D50.9 - Iron deficiency anemia, unspecified, Z00.00 - Encounter for general adult medical examination without abnormal findings Rheumatoid Factor Today M25.50 - Pain in unspecified joint Cortisol Random Today L65.9 - Nonscarring hair loss, unspecified, R23.2 - Flushing, R53.83 - Other fatigue Complete Blood Count Auto Diff Today D64.9 - Anemia, unspecified, Z00.00 - Encounter for general adult medical examination without abnormal findings Comprehensive Gray. Panel Fast Today E78.00 - Pure hypercholesterolemia, unspecified, Z00.00 - Encounter for general adult medical examination without abnormal findings TSH reflex Free T4 Today E78.00 - Pure hypercholesterolemia, unspecified, Z00.00 - Encounter for general adult medical examination without abnormal findings UA CC w/rflx Micro + Cult Today R30.0 - Dysuria, Z00.00 - Encounter for general adult medical examination without abnormal findings Lipid Panel Today E78.00 - Pure hypercholesterolemia, unspecified, Z00.00 - Encounter for general adult medical examination without abnormal findings Vitamin B12 and Folate Today E53.8 - Deficiency of other specified B group vitamins, Z00.00 - Encounter for general adult medical examination without abnormal findings ADITYA Reflex Titer and Pattern Today M25.50 - Pain in unspecified joint Erythrocyte Sedimentation Rate Today M25.50 - Pain in unspecified joint C Reactive Protein Today M25.50 - Pain in unspecified joint HCG Quantitative Today N91.1 - Secondary amenorrhea Medications: New bupropion HCl XL 150 mg PO QAM 30 days 30 tabs 3RF multivitamin 1 tab PO DAILY 90 days 90 tabs 3RF hydroxyzine HCl 25 mg PO TID 30 days PRN 90 tabs 2RF anxiety cholecalciferol (vitamin D3) 50 mcg PO DAILY 90 days 90 caps 3RF E55.9 - Vitamin D deficiency, unspecified
[2024-07-14 16:59] VITALS: BP 100/62; PULSE 66; O2SAT 99; BMI 28.0
== END 2024-07-14 17:59 | disposition home or self-care (01) ==
PROVIDERS: PCP Internal Medicine; Visit Provider Internal Medicine
DX: Z00.00 Encounter for general adult medical examination without abnormal findings (principal); R53.83 Other fatigue; R23.2 Flushing; L65.9 Nonscarring hair loss, unspecified; R19.5 Other fecal abnormalities; N91.2 Amenorrhea, unspecified; F41.1 Generalized anxiety disorder; E66.3 Overweight

== ENCOUNTER → 2024-07-14 16:33 | Outpatient (BNVA) | payer OTHER, SELFPAY | PROVIDERS: PCP Internal Medicine; Visit Provider Internal Medicine | DX: Z00.00 Encounter for general adult medical examination without abnormal findings (principal); R53.83 Other fatigue; R23.2 Flushing; L65.9 Nonscarring hair loss, unspecified; R19.5 Other fecal abnormalities; N91.2 Amenorrhea, unspecified; F41.1 Generalized anxiety disorder; E66.3 Overweight; Z68.28 Body mass index [BMI] 28.0-28.9, adult | CPT/HCPCS: 96127 ==

== ENCOUNTER 2024-07-15 07:18 | Outpatient (REF) | payer OTHER, SELFPAY ==
[2024-07-15 07:30] LABS: MANUAL DIFF FLAG NO
[2024-07-15 07:54] LABS: Basophils Percent Auto 0.5 % (0-2); Eosinophils Absolute Auto 0.1 X10*3/uL (0.0-0.4); Eosinophils Percent Auto 1.7 % (0-4); Hematocrit 37.4 % (37.0-47.0); Hemoglobin 11.9 g/dl (12.0-16.0); Imm Gran Abs Auto 0.01 X10*3/uL (0.00-0.03); Imm Gran Pct Auto 0.2 % (0.0-0.4); Lymphocytes Absolute Auto 2.1 X10*3/uL (1.2-4.9); Lymphocytes Percent Auto 50.9 % (20-40); Mean Corpuscular HGB Conc 31.8 g/dl (31.0-35.0); Mean Corpuscular Hemoglobin 28.3 pg (27.0-33.0); Mean Platelet Volume 10.9 fL (9.4-12.3); Monocytes Absolute Auto 0.5 X10*3/uL (0.1-1.2); Monocytes Percent Auto 10.9 % (2-11); Neutrophils Absolute Auto 1.5 x10*3/uL (2.0-8.3); Neutrophils Percent Auto 35.8 % (45-73); Platelet Count 264 X10*3/uL (160-400); Red Cell Distribution Width 13.2 % (11.0-16.0); White Blood Count 4.1 X10*3/uL (4.8-10.8)
[2024-07-15 08:17] LABS: Rheumatoid Factor < 13.0 IU/mL (<15.0)
[2024-07-15 08:20] LABS: Alanine Aminotransferase 13 U/L (0-31); Albumin Level 4.1 g/dL (3.5-5.0); Alkaline Phosphatase 55 U/L (39-117); Anion Gap 11 (12-20); Aspartate Amino Transferase 20 U/L (5-31); Bilirubin Total 0.6 mg/dL (0.0-1.0); Blood Urea Nitrogen 14 mg/dL (9-16); C Reactive Protein < 0.10 mg/dL (< or = 0.50); Calcium 9.3 mg/dL (8.4-10.2); Carbon Dioxide 28 mmol/L (22-29); Chloride 107 mmol/L (96-108); Cholesterol 230 mg/dL (<200); Estimated Glomerular Filt Rate > 60; Glucose Fasting 90 mg/dL (60-99); HDL Cholesterol 61 mg/dL (>40); Iron 67 mcg/dL (30-160); LDL Cholesterol Calculated 150 mg/dL (<100); Percent Iron Saturation 21 % (15-50); Sodium 142 mmol/L (135-145); Total Iron Binding Capacity 315 mcg/dL (228-428); Total Protein 6.9 g/dL (6.5-8.0); Triglycerides 95 mg/dL (<150); Unsaturated Iron Binding 248 ug/dL
[2024-07-15 08:27] LABS: Appearance Urine Clear; Color Urine Dark Yellow; Glucose Urine UA Negative (Negative); Leukocyte Esterase Urine Negative (Negative); Nitrite Urine Negative (Negative); PH 5.5 (5.0-9.0); Specific Gravity - Urine >= 1.030 (1.005-1.025); Urine Blood Negative (Negative); Urine Ketones Trace mg/dL (Negative); Urine Protein Trace mg/dL (Neg-Trace)
[2024-07-15 08:34] LABS: Cortisol Random 11.8 ug/dL
[2024-07-15 08:35] LABS: TSH reflex Free T4 2.72 uIU/mL (0.32-4.0); Vitamin D 25-OH Total 34.5 ng/mL (>30)
[2024-07-15 08:44] LABS: Erythrocyte Sedimentation Rate 9 MM/HR (0-20)
[2024-07-15 08:46] LABS: Folate 10.1 ng/mL (> or = 4.0); Vitamin B12 663 pg/mL (200-900)
[2024-07-18 07:52] LABS: Anti Nuclear Antibody Screen NEGATIVE (NEGATIVE)
== END 2024-07-15 07:19 | disposition home or self-care (01) ==
LOC: HO.LAB 07:18
PROVIDERS: PCP Internal Medicine; Visit Provider Internal Medicine
DX: Z00.00 Encounter for general adult medical examination without abnormal findings (principal); M25.50 Pain in unspecified joint; D50.9 Iron deficiency anemia, unspecified; E78.00 Pure hypercholesterolemia, unspecified; R30.0 Dysuria; E55.9 Vitamin D deficiency, unspecified; R53.83 Other fatigue; R23.2 Flushing; L65.9 Nonscarring hair loss, unspecified; D64.9 Anemia, unspecified; E53.8 Deficiency of other specified B group vitamins
CPT/HCPCS: 36415; 80053; 80061; 81003; 82306; 82533; 82607; 82746; 83540; 84443; 85025; 85652; 86038; 86140; 86431

== ENCOUNTER 2025-02-12 10:16 | Emergency (ER) | payer OTHER, SELFPAY ==
--- NOTE | ~2025-02-12 | US_ITS ---
EXAMINATION: US TRIPLEX LOWER EXTREMITY, LEFT CLINICAL INFORMATION: Left lower extremity edema and pain COMPARISON: None available. TECHNIQUE: Color-flow triplex imaging with spectral analysis and compression Doppler were performed on the left lower extremity. FINDINGS: Respiratory variation, normal compression and augmented flow are noted throughout the left lower extremity. The visualized common femoral vein, superficial femoral vein, profunda femoral vein, popliteal vein and midcalf peroneal and posterior tibial venous segments show no evidence of deep venous thrombosis. US/US venous duplex LE LT IMPRESSION: No evidence of deep venous thrombosis involving the left lower extremity. Electronically signed by: Cosme Hardwick MD 02/12/2025 11:24 AM EDT
--- NOTE | ~2025-02-12 | XR_ITS ---
EXAMINATION: XR KNEE, LEFT CLINICAL INFORMATION: pain, swelling COMPARISON: December 02, 2018 TECHNIQUE: Four views of the left knee. FINDINGS: There is a medial tibial metaphyseal plate with 2 proximal and 2 distal medullary screws are intact. There is persistent sclerosis with irregularity involving the subchondral bone of the medial femoral condyle. There is new small degenerative cystic change. XR/XR knee LT 4V IMPRESSION: Chronic osteochondral lesion in the medial femoral condyle shows mild progression of degenerative cystic change. Medial tibial metaphysis hardware is intact. Electronically signed by: Cosme Hardwick MD 02/12/2025 11:27 AM EDT
[2025-02-12 10:31] VITALS: BP 123/80; PULSE 65; RESP 16; TEMP 36.6; O2SAT 100; BMI 24.9
--- NOTE | 2025-02-12 10:34 | ED_ITS ---
HPI - Extremity Problem General Chief complaint: Extremity Injury, Lower Stated complaint: knee pain Time Seen by Provider: 02/12/25 10:37 Source: patient Mode of arrival: ambulatory Limitations: no limitations History of Present Illness ED Provider: Raleigh Powell PA-C HPI Narrative: 39-year-old female with medical history of arthralgia, anxiety, left tibial osteotomy (2019), presents to the ED due to 3 weeks of left knee pain. Patient states she was sitting down when she ?stretched my leg? extending it out when she felt a sharp aching pain of the left knee. Patient states this pain is a constant ache, which radiates to the back of the knee and has progressed over the last 3 weeks. Patient states she is having difficulty ambulating, and standing due to pain. Patient has been using diclofenac gel 4 times a day, Tylenol, Motrin which she states helps with the swelling, but does not take away the pain. Patient denies recent injury or trauma. Related Data Previous Rx's ?Medication ?Instructions ?Recorded bupropion HCl 150 mg 24 hr tablet, 150 mg PO QAM 30 da ys #30 tabs 07/14/24 extended release cholecalciferol (vitamin D3) 50 50 mcg PO DAILY 90 day s #90 caps 07/14/24 mcg (2,000 unit) capsule hydroxyzine HCl 25 mg tablet 25 mg PO TID PRN anxiety 30 days 07/14/24 #90 tabs multivitamin 1 tab PO DAILY 90 days #90 t abs 07/14/24 Allergies Allergy/AdvReac Type Severity Reaction Status Date / Time No Known Allergies Allergy Verified 02/12/25 10:33 Review of Systems Review of Systems: CONST: Negative for fever, body aches and chills. HENT: Negative for neck pain/stiffness, headache, congestion, sore throat, swelling. EYES: Negative for discharge/pain or vision changes. RESP: Negative for cough/hemoptysis and shortness of breath. CV: Negative chest pain, difficulty breathing, palpitations. ABD: Negative pain, nausea, vomiting. : Negative increase frequency, dysuria, blood in urine or stool. MUSC: Negative for muscle aches, edema. POS L knee pain and fullness SKIN: Negative rash, lesions/sores. NEURO: Negative headache, dizziness, weakness. Yes all other systems are reviewed and are negative PMFSH Past Medical History Attestation statement: The following information was validated with the patient. Source: old records reviewed and nursing notes reviewed Medical History (Updated 02/12/25 @ 11:01 by Sherry Storey PA-C) Overweight (BMI 25.0-29.9) Generalized anxiety disorder Surgical History (Updated 07/15/24 @ 05:36 by Josep Silva MD) History of History of knee surgery Family History Family History Mother Diabetes High blood pressure Father No problems noted. Social History Social History Housing: House Alcohol intake: never Patient Tobacco Use Status: Never used Tobacco e-Cigarette/Vaping Use: Never Used Second Hand Smoke Exposure: No Advance Directives: No Advance Directives Information Provided: Yes service: No Current occupational status: employed Sexual orientation: Straight/Heterosexual Gender identity: Female Cognitive needs: No Hearing needs: No Vision needs: No Physical Exam Vital Signs: Vital Signs: Last Vital Signs Temp 98 F 02/12/25 10:31 Pulse 65 02/12/25 10:31 Resp 16 02/12/25 10:31 BP 123/80 02/12/25 10:31 Pulse Ox 100 02/12/25 10:31 O2 Del Method Room Air 02/12/25 10:31 BMI result Body Mass Index 24.9 GENERAL APPEARANCE: ?AxOx4, generally well-appearing, no acute distress. HEENT: ?NC, AT. MMM. EOMI, clear conjunctiva, oropharynx clear. NECK: ?Supple without lymphadenopathy.? No stiffness or restricted ROM. HEART:? Normal rate and regular rhythm, normal S1/S1, no m/r/g LUNGS:? CTAB, moving air well. No crackles or wheezes are heard. EXTREMITIES: ?Without cyanosis, clubbing or edema. Left knee no observable anatomical abnormalities, with TTP of lateral patella, no bony abnormalities felt, mild edema of the popliteal fossa, no laxity appreciated. NEUROLOGICAL: ?Grossly nonfocal. Alert and oriented, moving all 4 extremities. Ambulates with normal gait, although slow and steady. Skin: ?Warm and dry without any rash. Course Course Course Narrative: 39 yo female with PMH of L knee tibial osteotomy back in 2019 from [facility] - started hurting 3 weeks ago. No recent trips not on OCPs. She has pain x 3 weeks - walking pain. Standing. No fevers, no rash. At this time will get xray to evaluate hardware, US as well for bakers cyst/DVT. this is a RAPID medical screening exam the rest of the history and physical exam is to be done by the main provider. RY 02/12/25 [id number] Medical Decision Making Medical Decision Making MDM Narrative: 39-year-old female with medical history of arthralgia, anxiety, left tibial osteotomy (2019), presents to the ED due to 3 weeks of left knee pain. Patient states she was sitting down when she ?stretched my leg? extending it out when she felt a sharp aching pain of the left knee. Patient states this pain is a constant ache, which radiates to the back of the knee and has progressed over the last 3 weeks. Patient states she is having difficulty ambulating, and standing due to pain. Patient has been using diclofenac gel 4 times a day, Tylenol, Motrin which she states helps with the swelling, but does not take away the pain. Patient denies recent injury or trauma. VSS, in no acute distress, nontoxic appearing. On physical exam patient does not have any obvious deformities of the patella, no bony abnormalities felt, has tenderness over the lateral patella, mild edema of the popliteal fossa, no laxity appreciated, no erythema, pitting edema, unilateral swelling, DP pulses 2+ bilaterally. Plan for left knee XR, ultrasound to evaluate for fracture, hardware placement, DVT or popliteal cyst. Differential Diagnosis Differential Diagnoses: The differential diagnosis associated with the presentation includes Knee fracture Defect and hardware placement DVT Popliteal cyst Patellofemoral pain syndrome Admission/Observation Consideration of admission/observation: Escalation of care including admission/observation considered Independent Interpretation I performed an independent interpretation of an: Plain X-Ray Interpretation: XR left knee U/S venous Doppler Radiology Impression Discussion of test interpretation with radiology: I have reviewed the radiologist's reading. External Record Review External record reviewed: Inpatient record, Office record and Outpatient record Prescription Management I considered prescription management with: Pain Medication (I contemplated Toradol, patient been using diclofenac gel we will hold off on Toradol at this time. Patient offered Tylenol, states Tylenol not working for her. Patient not interested in any other medications at this time for pain) Discharge Plan Discharge Clinical Impression: Knee pain, left Patient Disposition: Home, Self-Care Instructions: Knee Pain (ED) Additional Instructions: You were evaluated in the ED today due to left knee pain. Your x-ray was negative for any fracture, dislocation or hardware displacement, your ultrasound was negative for DVT or popliteal cyst. However your x-ray did show osteochondral lesion of the femoral condyle with degenerative cystic changes. An osteochondral lesion means that there is some damage/changes to the smooth cartilage in the bone underneath the cartilage in your knee. When this cartilage is damaged it can prevent the knee from gliding smoothly while you move it, this can cause pain swelling and stiffness especially when you walk, bend, put weight on the knee. This can occur from injury, repetitive stress, or just wear and tear from the knee over time. You stated you have orthopedic follow up on the of this month. I recommend that you go to that appointment for further management and evaluation. To manage your pain continue to take 500 mg Tylenol, 400 mg ibuprofen every 6 hours. I would discontinue using the diclofenac gel, as oral ibuprofen we will work better to control this pain. Do not use diclofenac gel and ibuprofen together as they are both NSAIDs, and can cause GI upset, increase your risk of GI bleed if using these together. Ice the affected area, elevate the left leg for swelling, you can place an Niko bandage on this knee for light compression. Please return to the ED if you experience worsening pain, worsening difficulty walking, redness or heat of the knee or left leg, swelling of the left leg, fevers, chills, or any other new/worsening/concerning symptoms. Prescriptions: No Action bupropion HCl 150 mg tablet extended release 24 hr 150 mg PO QAM 30 Days Qty: 30 3RF hydroxyzine HCl 25 mg tablet 25 mg PO TID PRN (Reason: anxiety) 30 Days Qty: 90 2RF cholecalciferol (vitamin D3) 50 mcg (2,000 unit) capsule 50 mcg PO DAILY 90 Days Qty: 90 3RF multivitamin Tablet 1 tab PO DAILY 90 Days Qty: 90 3RF Print Language: Other
--- OUTSIDE RECORDS SUMMARY | 2025-02-12 12:13 | XMS_ITS | Clinical Summary ---
Author Organization [facility] Address [address] [place] [phone] Phone Care Team Providers Care Mass Spectroscopist Name Role Phone Josep Silva MD Primary Care Provider [phone] Allergies No known active allergies Medications ferrous sulfate (IRON ORAL) Take by mouth. Act patric methylsulfonylme nba (MSM) 1,000 mg Tab Take by mouth. Ac tive sertraline (ZOLOFT) 50 MG tablet Take 1 tablet (50 mg total) by mouth daily. 30 tablet 1 3 Active Additional Information Patient not taking.Reported on 11/15/2023 benzonatate (TESSALON) 200 MG capsule TAKE 1 CAPSULE BY MOUTH THREE TIMES A DAY NEEDED FOR COUGH FOR 7 DAYS 4 Active fluconazole (DIFLUCAN) 150 MG tablet TAKE 1 TABLET BY MOUTH DAILY FOR VAGINAL YEAST INFECTION. 4 Active polymyxin B trimethoprim (POLYTRIM) 10,000 unit- 1 mg/mL Drop INSTILL 1 DROP INTO AFFECTED EYE(S) 4 TIMES A DAY FOR 10 DAYS 4 Active tretinoin (RETIN-A) 0.05 % cream 4 Active Active Problems Problem Noted Date Diagnosed Date Nausea 12/20/2023 History of umbilical hernia repair 12/20/2023 S/P umbilical hernia repair, follow-up exam 11/2022 Anxiety 12/14/2022 12/14/2022 Eczema 12/14/2022 12/14/2022 Diastasis recti 10/23/2022 depression 10/23/2022 Assessment & Plan (11/16/2022 10:55 AM EDT): Rashmi is here to follow up d/t PP Depression. She is doing better since her last appointment. Her was able to take more time off and she got a lot of help from her sister in law when they were out of town for a family emergency. She was able to talk with her and she gave her some tips on swaddling which have worked well for her baby. Satish has taken some of the nights so Rashmi can sleep. Initially she didn't start the Zoloft but did start about a week ago and is feeling like it was the right decision. Working with therapist weekly. Has not done any support groups but may try them coming up. Still having some fleeting thoughts of not wanting to be here but they are less and she does not have any active SI plans. O: AAO x 3, NAD EPDS 13 with Hardly Ever to Q10 A: PP Depression, improving P: Continue Zoloft, has just increased to 50 mg Continue family and sleep support/therapy Aware of PP groups available Follow up in 2 weeks for PP Depression follow up and for Pap smear Assessment & Plan (11/02/2022 6:05 PM EDT): EPDS 22 with Sometimes to Q 10 Rashmi has been struggling with depression and anxiety. She is also feeling very tired. Sleeping about 4 hours in the morning when Satish takes the baby at 5 am. She is and they have introduced pumped milk through bottle. Feeling thoughts of not wanting to feel like this but does not have an active suicidal plan. We talked about safety and she reports that she has a gun in the house. We talked together with her and Satish (With Rashmi's permission) and they decided that they would have her dad take the gun while they are dealing with this depression and anxiety. Rashmi contracts to call us or Crisis with active SI. Recommend treatment for anxiety and depression - she has just started with a therapist and she agrees to start Zoloft. Continue therapy Support given Info on Support Groups/Crisis given Discussed strategies around support/sleep enhancement - recommended tag teaming earlier in the night to enhance sleep for Rashmi - Jose agrees Satish will take more time off of work to support Rashmi - work note given Encouraged calling cousin/family to help out Recommend follow up in 1 week care following delivery 10/10 Assessment & Plan (10/23/2022 1:04 PM EDT): Today's visit focused on Mental Health Rashmi needs to have a pap at a future visit Resolved Problems Problem Noted Date Diagnosed Date Resolved Date Umbilical hernia without obs truction and without gangrene 10/23/2022 12/14/2022 Assessment & Plan (11/16/2022 10:50 AM EDT): Has appt with General Surgeon tomorrow Assessment & Plan (11/10/2022 4:47 PM EDT): This is a 37-year-old healthy woman who is now 6 weeks from her second with a symptomatic umbilical hernia and she is interested in having this repaired. Patient also has diastases rectus and planning to have physical therapy for diastases rectus when she has a hernia repaired. She has discomfort mostly with any straining of the abdominal wall. She is eating well move her bowels without difficulty. I have discussed open repair with mesh of the umbilical hernia including risk benefits and alternatives and the patient would like to proceed. I will order a CBC and urinalysis and test as well as PT and INR preoperatively. She does not need any radiologic studies. We will schedule sometime in the near future and the patient will follow-up with me 2 weeks following the procedure. Normal intrauterine , antepartum 09/25/2022 10/23/2022 Polyhydramnios in third trimester 08/20/2022 10/23/2022 Overview (09/11/2022): Based on MVP 8.6 at 33 weeks Repeat scheduled in 2 weeks Normal MARKY on repeat 09/06/22 Assessment & Plan (09/23/2022 3:52 PM EDT): MARKY 13 today. Debris noted in fluid. Likely meconium. Assessment & Plan (09/12/2022 7:10 PM EST): US repeated today to confirm vertex positioning. MARKY 18 cm Assessment & Plan (09/04/2022 4:07 PM EST): Normal MARKY today. Assessment & Plan (08/31/2022 6:44 AM EST): Did not schedule ultrasound for f/u - will schedule at checkout Assessment & Plan (08/20/2022 7:47 AM EST): Discussed today and reviewed assoc risks. Repeat U/S ordered. Hx of section 07/31/202210/23 Overview (09/25/2022): Date of surgery: 2018 Reason for prior : NRFHTs, no labor Incision type: LTCS (noted in [facility] records) Records requested/reviewed: Anterior placenta, had Level II Delivery route counselin07/31/22 Preferred mode of delivery:TOLAC Consent signed: Consent signed Assessment & Plan (09/23/2022 3:52 PM EDT): She and her partner have decided that they would like an induction. Induction scheduled for this Wednesday at 41 weeks. Risks of induction and method reviewed. They are committed to TOLAC. Assessment & Plan (09/12/2022 7:13 PM EST): Planning TOLAC, aware of recommendation for IOL, labor or plan for repeat C/S by or at 41 weeks. Will consider over next week. Assessment & Plan (09/04/2022 4:05 PM EST): She is still planning on TOLAC. Supervision of high risk pre gnancy in third trimester 07/31/2022 10/23/2022 Overview (09/18/2022): CNM No OB-CMI score has been filled out for this encounter. Group PN care? * Rh pos GC/Chlam neg PAP * Tdap 06/2022 Flu * COVID-19* Hgb 10.3 GTT 129 28 wk Repeat RPR NR GBS neg PPBC plans vasectomy screening cfDNA low risk Assessment & Plan (09/23/2022 3:55 PM EDT): Rashmi is feeling frustrated that labor has not started. Ready to schedule induction. Would like membrane sweep today. Cervix still 2-3 cm external os and closed internal os. BPP 8/8 today. Baby is moving well. Scheduled for pitocin induction on Wednesday morning. Assessment & Plan (09/17/2022 3:37 PM EST): Here with Satish. She has been trying really hard to get herself into labor - acupuncture with Gabby Murphy, sexual activity, red rasp leaf tea. Requests membrane sweep today - cervix soft and anterior, ext os 2-3, internal os closed. Recommended BPP midweek next week with visit to follow to discuss RCS vs IOL. Briefly discussed induction methods with TOLAC, preference for spont labor. Assessment & Plan (09/12/2022 7:22 PM EST): Rashmi is a 37 y.o. at 39w0d doing well. Denies VB/LOF/Ctxs. + FM. Here with partner and son. Feeling tired, not sleeping well. Concerned about increased discharge and an odor to discharge - VWP shows normal ph, no clue cells, neg whiff. Reassured that discharge appears normal at this time. FHR in upper part of abdomen, unable to verify vertex by vaginal exam. Unable to reach internal os on exam, posterior. external os feels 1 cm US done by Tech after visit and vertex position confirmed. Reviewed s/s of labor and when to call In review of records, cannot find GTT, CBC, RPR at 28 weeks - will ask office to call [facility] for lab records. Assessment & Plan (08/31/2022 6:44 AM EST): Feeling OK. Has some irregular contractions in the evenings, also having some shortness of breath. She has decided against tubal, partner plans vasectomy. Reviewed s/s of labor and contacting practice, self-care in early labor. GBS collected today. Assessment & Plan (08/20/2022 7:45 AM EST): Here with Gomez, who is a great helper. She feels fairly well apart from some musculoskeletal discomforts. Baby has been active. Discussed BCM. They do not want any more children. She would be interested in tubal only in the event of a . Recommended she sign tubal consent today. She states she would like to discuss with her first. Advised that signing consent does not mean that she will or has to get a tubal, can change her mind at any time; conversely if we don't sign today it is unlikely a tubal would be possible at the time of a if indicated. Reviewed [place] state restrictions around this. Despite counseling she declines to sign today. Check in at n.v. Will also send a message via the portal. EPDS 12. She has a h/o depression after her son, developed around 3 months after delivery. Didn't feel bonded to her baby for a long time and didn't know how to ask for help. In the years that followed she and her partner lost 5 pregnancies in a row, and depression continued for that reason. She tried medication, ? Zoloft, wasn't helpful. This was recommended by her previous practice at [facility] due to EPDS 18, but she did not take it. Does not feel open to meds at this time. Does not need crisis services, denies SI/HI. Very open to working with a therapist. Will refer to [facility]. Check in at [facility]. Discussed GBS at [facility]. 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 Assessment & Plan (07/31/2022 2:11 PM EST): Discussed and ordered growth U/S today. resulting from in vitro fertilization in third trimester 07/31/2022 023 Overview (07/31/2022): IVF due to multiple SABs Normal Level II Assessment & Plan (09/04/2022 4:00 PM EST): She notes good movement. She denies any vaginal bleeding, leakage of fluid, or regular contractions. She had a BPP today with 8/8. The MARKY was normal. Immunizations Immunization Administration Dates Next Due Tdap 06/29/2022 Family History Medical History Relation Comments Deep vein thrombosis Mother Diabetes type II Mother Hypertension Mother Stroke Mother Relation Status Comments Brother Alive Father Alive Mother Alive Sister 1 Alive Sister 2 Alive Sister 3 Alive Social History Tobacco Use Types Packs/Day Years Used Date Smoking Tobacco: Never Smokeless Tobacco: Never Tobacco Cessation:Counseling Given: Not Answered Alcohol Use Standard Drinks/Week Comments Never 0 (1 standard drink = 0.6 oz pur e alcohol) Education Answer Date Recorded Are you interested in more education? Not on edilberto e 11/06/2022 Are you concerned about learning? Not on file 11/06/2022 No 11/06/2022 No 11/06/2022 Digital Access Answer Date Recorded No 12/05/2022 No 12/05/2022 Reliable internet access at home? Not on file 12/05/2022 Device with a working camera? Not on file Intimate Partner Violence Answer Date R ecorded Are you denied basic needs s uch as food, clothing, or medical care? No 11/26/2022 In the past 12 months have y ou been in a relationship with a person who hurts, threatens, or tries to control you? No 11/26/2022 Are you denied basic needs s uch as food, clothing, or medical care? No 11/26/2022 In the past 12 months have y ou been in a relationship with a person who hurts, threatens, or tries to control you? 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 [employer] Not on file Not on file Not on file Last Filed Vital Signs Vital Sign Reading Time Taken Comments Blood Pressure 112/66 12/20/2023 11:10 AM EDT Pulse 70 12/20/2023 11:10 AM EDT Temperature 36.4 C (97.6 F) 12/20/2023 11:10 AM EDT Respiratory Rate 16 11/26/2022 2:18 PM EDT Oxygen Saturation 99% 12/20/2023 11:10 AM EDT Inhaled Oxygen Concentration - - Weight 69.4 kg (153 lb) 11/15/2023 4:06 PM EDT Height 167.6 cm (5' 6 ) 11/15/2023 4:06 PM EDT Body Mass Index 24.69 11/15/2023 4:06 PM EDT Plan of Treatment Health Maintenance Due Date Last Done Comments DEPRESSION SCREENING 1998 COVID-19 VACCINE (2023-2 5 season) 2024 PAP SMEAR 11/14/2028 11/15/2023 Adult Td,Tdap Booster 06/29/2032 06/29/2022 HEPATITIS C SCREENING Completed 02/23/2022 HIV ONE-TIME SCREENING (18-6 5 YEARS) Completed 02/23/2022 SMOKING STATUS SCREENING (On ce After 26 Yrs) Completed 12/20/2023 HEPATITIS A VACCINES Aged Out No long er eligible based on patient's age to complete this topic HIB VACCINES Aged Out No longer eligi ble based on patient's age to complete this topic MENINGOCOCCAL VACCINES (ACWY) Aged Out No longer eligible based on patient's age to complete this topic MENINGOCOCCAL VACCINES (B) Aged Out N o longer eligible based on patient's age to complete this topic PNEUMOCOCCAL VACCINES (0-49 years) Aged Out No longer eligible based on patient's age to complete this topic Medical Devices Implanted Type Area Game Author Device Identifier Shelf Expiration Date Model / Serial / Lot Pin Pin Left: Knee Strap Pocket 2.5in Med Graft Mesh Ventralex St Polypropylene Pga Patch Hernia Fiber Hydrogel Bioresorbable [place]/1ea - [id number] Implanted:Qty: 1 on 11/26/2022 by Toya Espinoza MD at [facility] STANDARD N/A: Abdomen [employer] [id number] 02/06/2024 [id number] / / [id number] Procedures Procedure Name Priority Date/Time Associated Diagnosis Comments PAP TEST Routine 11/15/2023 12:00 AM EDT HEPATITIS C ANTIBODY, QUALITATIVE Routine 02/23/2022 from Last 3 Months or Most Recently Relevant to Health Maintenance Results * Pap Test (11/15/2023 12:00 AM EDT) 11/15/2023 11/16/2023 8:4 0 AM EDT Narrative SEE NARRATIVE - 11/24/2023 12:07 PM EDT [address] [id number] Check Writer Salesperson: Tessa Anderson MD HEAD HOUSEKEEPER Cytology Report FINAL DIAGNOSIS A. PAP SMEAR (THIN PREP) CE: SPECIMEN ADEQUACY: Satisfactory for evaluation; transformation zone present. INTERPRETATION: NEGATIVE FOR INTRAEPITHELIAL LESION OR MALIGNANCY. This specimen was analyzed by the automated ThinPrep Imaging System ([employer] Cristian.) and the selected falcon were reviewed by a hackler doll wigs. Electronically Signed Out By: YOHANA Huddleston(ASCP) The Pap test is a screening test primarily for squamous cancers and precursors and has associated false-negative and false-positive results. New technologies such as liquid-based preparations may decrease but will not eliminate all false-negative results. Regular sampling and follow-up of unexplained clinical signs and symptoms are recommended to minimize false negative results. PROCEDURES/ADDENDA HPV Testing (Requested) Ordered Date: 11/16/2023 A. PAP SMEAR (THIN PREP) CE: Human Papilloma Virus Test NEGATIVE for high-risk Human Papilloma Virus types 16, 18, 45 and the Other high risk probe set (Includes 31, 33, 35, 39, 51, 52, 56, 58, 59, 66, 68) Note: Testing performed by [email or web address] Onclarity HR-HPV analysis. Clinical correlation is advised. This HPV test was performed at [facility], [address] [place] [address]. This test has been FDA approved for both SurePath and ThinPrep cervical cytology specimens. The accuracy and precision of this test for all other specimen sources has been verified in the Cytopathology Laboratory of the [facility] and has not been cleared or approved by the U.S. Food and Drug Administration. Clinical correlation is advised. CLINICAL HISTORY Date of Last Menstrual Period: 11-09-2023 Other Clinical Conditions: Screening Pap SPECIMEN SOURCE A: PAP SMEAR (THIN PREP) CE Patient Name: RASHMI KHAN : 1985 (Age: 38) Sex: F Institution: [facility] Location: [facility] Date of Collection: 11/15/2023 Date of Reported: 11/24/2023 12:07 Results to: Gabby Lane MSN Gabby Lane CN CYTOLOGY ORDERABLES Final Result SEE NARRATIVE * Hepatitis C antibody, qualitative (02/23/2022) Hepatitis C Antibody, qualitatitve - External Neg Historical Provider LAB BLOOD ORDERABLES Laura l Result from Last 3 Months or Most Recently Relevant to Health Maintenance Insurance O O O O HMO O Advance Directives For more information, please contact: [phone] (9AM - 5PM [facility] [place], Wednesday-Wednesday) Documents on File Type Date Recorded 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 Expl anation Healthcare Proxy 09/30/2022 12:43 PM * Full Code (Latest Code Status on File) Date Activated Date Inactivated Comments 11/26/2022 7:52 AM Question Answer Comments Code Status Confirmed With: Patient * Full Code Date Activated Date Inactivated Comments 09/25/2022 9:37 PM 11/26/2022 7:52 AM Question Answer Comments Code Status Confirmed With: Patient Care Teams Mass Spectroscopist Relationship Specialty Start Date End Date Josep Silva MD [address] [place] [address] Dr Blanchard [facility] [place] [address] PCP - General Internal Medicine 12/14/22 Additional Source Comments The information contained in this document represents components of the legal health record. It is not the complete legal health record.[facility]
[2025-02-12 12:19] VITALS: BP 123/80; PULSE 65; RESP 16; TEMP 36.6; O2SAT 100
== END 2025-02-12 12:19 | disposition home or self-care (01) ==
PROVIDERS: Emergency Provider Emergency Medicine Emergency Medical Services; PCP Internal Medicine
DX: M25.562 Pain in left knee (principal); M25.50 Pain in unspecified joint; F41.9 Anxiety disorder, unspecified; Z79.899 Other long term (current) drug therapy; M79.605 Pain in left leg
CPT/HCPCS: 73564; 93971; 99282; 99284

== ENCOUNTER → 2025-02-12 10:36 | Outpatient (BNV) | payer OTHER, SELFPAY | PROVIDERS: Emergency Provider Emergency Medicine Emergency Medical Services; PCP Internal Medicine; Visit Provider Radiology Diagnostic Radiology | DX: M79.605 Pain in left leg (principal); R60.0 Localized edema; M93.262 Osteochondritis dissecans, left knee | CPT/HCPCS: 73564; 93971 ==